=== PATIENT | female | born 1935 | race Caucasian/White ===

== ENCOUNTER → 2017-03-12 | Outpatient (CLI) | payer OTHER ==
[~2017-03-12] MED LIST: ASCA500 PO; CALCTAB13 PO; CLB200 PO; ENOX40IN SQ; FISHOIL PO; GLCSUNK; LATA0.009 OPB; LOSA1TAB PO; LRT5 PO; MAGNESIUM; METF1000 PO; MULT-506 PO; TYLER650 PO
== END | disposition home or self-care (01) ==
LOC: C.CPL 11:06
PROVIDERS: ATTEND Orthopaedic Surgery
DX: M25.512 Pain in left shoulder (principal)

== ENCOUNTER 2019-02-02 10:02 | Inpatient (IN) ==
[2019-02-02] MEDS ORDERED: SODIUM CHLORIDE 0.9% 1000ML 1,000 ML IV SCH ×2 (10:15→14:32)
--- NOTE | 2019-02-02 10:49 | XRay Report ---
XR chest 1V portable CLINICAL HISTORY: dizziness COMPARISON STUDY: Chest radiograph August 27, 2011. FINDINGS: Lung volumes are normal. Lungs are clear. There is no pneumothorax or pleural effusion. Car diac size is normal. Mediastinal contours are normal. There is no evidence for pulmonary edema. Sever al old left rib fractures are incidentally noted. IMPRESSION: No acute cardiopulmonary findings. Electronically signed by: Dominik Robin M.D. 02/02/2019 10:47 AM
[2019-02-02 10:51] LABS: Basophils # (auto) 0.03 K/uL (0-0.2); Basophils % (auto) 0.7 %; Eosinophils # (auto) 0.12 K/uL (0-0.5); Eosinophils % (auto) 2.9 %; Hematocrit (blood only) 40.2 % (37-47); Hemoglobin 13.5 g/dL (12.0-16.0); Immature Granulocytes # (auto) 0.01 K/uL (0.00-0.02); Immature Granulocytes % (auto) 0.2 %; Lymphocytes # (auto) 1.32 K/uL (1.2-3.4); Lymphocytes % (auto) 32.4 %; Mean Corpuscular Hgb Conc 33.6 g/dL (32-36); Mean Platelet Volume 10.9 fL (7.4-10.4); Monocytes # (auto) 0.41 K/uL (0.11-0.59); Monocytes % (auto) 10.1 %; Neutrophils # (auto) 2.18 K/uL (1.4-6.5); Neutrophils % (auto) 53.7 %; Platelet Count 224 K/uL (130-400); RDW Coefficient of Variation 13.3 % (11.5-14.5); RDW Standard Deviation 44.5 fL (36.4-46.3); Red Blood Count 4.37 M/uL (4.2-5.4); White Blood Count 4.07 K/uL (4.8-10.8)
[2019-02-02 11:13] LABS: Alanine Aminotransferase 18 U/L (12-78); Aspartate Aminotransferase 13 U/L (15-37); BUN Creatinine Ratio 19.6 (10-20); Blood Urea Nitrogen 20 mg/dl (7-18); Calcium 9.4 mg/dl (8.5-10.1); Carbon Dioxide 30 mmol/L (21-32); Chloride 106 mmol/L (98-107); Est GFR (African American) 61.2; Est GFR (Non-African American) 52.8; Glucose 142 mg/dl (70-99); Magnesium 2.1 mg/dl (1.8-2.4); Potassium 3.9 mmol/L (3.5-5.1); Sodium 141 mmol/L (136-145)
[2019-02-02 11:18] LABS: Albumin Globulin Ratio 1.1 (0.9-2); Alkaline Phosphatase 95 U/L (45-117); Bilirubin,Total 0.5 mg/dl (0.2-1); Globulin 3.7 gm/dl (2.5-4.0); Total Protein 7.7 gm/dl (6.4-8.2); Troponin I < 0.015 ng/ml (0-0.045)
--- NOTE | 2019-02-02 11:20 | CT Scan Report ---
CT OF THE HEAD WITHOUT CONTRAST CLINICAL HISTORY: Stroke evaluation COMPARISON STUDY: No previous studies for comparison. CT DOSE: 788.63 mGycm TECHNIQUE: Helical axial images of the head were obtained without IV contrast. Automated exposure con trol was utilized for the study. A dose lowering technique was utilized adhering to the principles o f ALARA. FINDINGS: No acute intracranial hemorrhage, midline shift or mass effect is present. Ventricular syst em is normal. The basilar cisterns are patent. There are no extra-axial collections. Note is made of a 1.4 cm hypodensity within the anterior right cerebellar hemisphere which may extend into the cerebe llar peduncle. A 5 mm hypodensity within the right thalamus is noted. 4 mm hypodensity within the lef t caudate head is noted. 9 mm subcortical right frontal lobe hypodensity is noted. There are no findi ngs to suggest acute dural sinus thrombosis or acute territorial infarct. White matter hypodensity pacheco ggests small vessel disease. No calvarial fracture is present. Visualized portions of the sinuses and mastoid air cells are clear. IMPRESSION: 1. No acute intracranial hemorrhage or mass effect. 2. 1.4 cm right cerebellar hypodensity. This represents an age indeterminate but likely subacute to c hronic infarct. A few additional age indeterminate lacunar infarcts, as described above. Electronically signed by: Dominik Robin M.D. 02/02/2019 11:18 AM
[2019-02-02 11:29] LABS: Partial Thromboplastin Ratio 0.9; Partial Thromboplastin Time 24.5 Seconds (21.0-31.0); Prothrombin Time 10.1 Seconds (9.0-12.0)
[2019-02-02 11:58] LABS: Appearance Urine Cloudy (Clear); Bacteria Urine Automated 4+ (Negative); Bilirubin Urine Negative (Negative); Blood Urine Negative (Negative); Color Urine Yellow; Epithelial Cell Urine Auto 0-5 /lpf (0-5); Glucose Urine UA Negative (Negative); Ketones Urine Negative (Negative); Leukocyte Esterase Urine 2+ (Negative); Nitrite Urine Positive (Negative); Protein Urine Negative (Negative); RBC Urine Automated 0-4 /hpf (0-4); Specific Gravity Urine 1.016 (1.000-1.030); Urobilinogen Urine Negative (Negative); WBC Urine Automated >30 /hpf (0-5)
[2019-02-02] MEDS ORDERED: ASPIRIN CHEW 324 MG PO STA (12:07)
[2019-02-02] MEDS ORDERED: ONDANSETRON INJ 2 MG/ML 2 ML VIAL IV STA (12:30)
[2019-02-02] MEDS ORDERED: HYDROmorphone INJ 0.5 MG/0.5 ML SYR IV PRN (12:30)
--- NOTE | 2019-02-02 13:18 | History & Physical Report ---
Date of Service February 02, 2019 Assessment & Plan (1) CVA (cerebral vascular accident): This is an 83 year old F who has a significant PMH of T2DM, HTN, HLD, CKD-3, Vit D deficiency, glaucoma who presents to [facility] ED due to diplopia, off balance, exp aphasia x 1-[address] scan of brain revealed 1.4 cm right cerebellar hypodensity, likely represents age-indeterminate vs subacute to chronic infarct. Additional age- indeterminate lacunar infarcts noted as well. CBC relatively unremarkable. CMP significant for elevated BUN 20, creatinine 1.00, glucose 142. Troponin and magnesium WNL. Urinalysis consistent with UTI, positive nitrites, leukocyte esterase, WBC, minimal epithelial cells and bacteria. In ED patient received 324 mg of aspirin. Hospital service has been called for admission given concern for subacute CVA. Admit to telemetry MRI Brain ordered CTA head/neck Echocardiogram Lipid panel, A1C in a.m. along with daily labs Pt currently on ASA, will add Plavix 75mg daily and high intensity statin IVF 80cc/hr x 1 L due to metformin use and CTA PT/OT/ST consulted (2) Diabetes: Last A1C 08/3018 6.9 Hold metformin Novolog per sliding scale (3) Hypertension: Continue losartan Mildly hypertensive in ED monitor (4) HLD (hyperlipidemia): Lipid panel 08/2018 total chol 229, LDL 158 Not on Statin therapy Fasting lipid panel in a.m. Initiate high intensity statin (5) CKD (chronic kidney disease) stage 3, GFR 30-59 ml/min: Baseline Cr 1.0 Monitor (6) Vitamin D deficiency, unspecified: Continue Vit D supplementation (7) Glaucoma: Continue eye gtts (8) DVT prophylaxis: Lovenox, SCD/TEDS Full Code Disposition: to be deteremined, case management, PT/OT/ST consulted Follow up: PCP Dr. Alarcon upon discharge Patient was seen and examined in collaboration with Dr. Lopez, please see addendum History of Present Illness Chief Complaint: diplopia, off balance, exp aphasia x 1-2 weeks. Primary Care Provider: Mainor Alarcon MD This is an 83 year old F who has a significant PMH of T2DM, HTN, HLD, CKD-3, Vit D deficiency, glaucoma who presents to [facility] ED due to diplopia, off balance, exp aphasia x 1-2 weeks. Patient expresses over the past 2 weeks she has noted intermittent diplopia bilaterally. "When ER doc was in here there was 2 of him, but not it is back to normal. Elicits she had eye exam 1 week ago without change. Also complains of otherwise being off balance and over the past 2 to 3 days has been having difficulty finding words. "I really have to think of what I am going to say." Further complains of difficulty with fine motor movements such as change in handwriting. Patient has suffered 2 falls in the past week. One last week appears to be mechanical when she was walking over some stones, fell and struck head. She did not lose consciousness. The second fall was approximately 2 days ago whenever she felt off balance and fell backwards into a wall, did not hit head. Denies having symptoms in past. Denies recent illness or history of CVA in the past. Feels overall bilateral lower extremities are weaker than usual but denies any significant weakness or paralysis, inability to speak, slurred speech, facial droop. She denies any fever, chills, sweats, diz ziness, lightheadedness, chest pain, palpitations, shortness of breath, nausea, vomiting diarrhea, dysuria, increase in urgency or frequency with urination, hematuria, melena. Last BM was yesterday. Appetite has otherwise been well. No known weight loss. Takes asa on daily basis for preventative measures. Has glaucoma and takes eye gtts for this. Allergies Allergy/AdvReac Type Severity Reaction Status Date / Time No Known Allergies Allergy Unverified 02/02/19 11:16 Home Medications Home Medications Medication Instructions Recorded Confirmed Type acetaminophen [Tylenol] 650 mg PO BID PRN 02/02/19 02/02/19 History aspirin [Aspirin Low Dose] 81 mg PO DAILY 02/02/19 02/02/19 History hnbqqgu-mpucpjoxljgcb-kiigwbmi 2 tab PO BID PRN 02/02/19 02/02/19 History [Excedrin Extra Strength] calcium carbonate-vitamin D3 1 tab PO BID 02/02/19 02/02/19 History [Calcium 500 + D] diphenhydramine-acetaminophen 0.5 tab PO HS 02/02/19 02/02/19 History [Tylenol PM Extra Strength] glucos sul 1VZv-bnw-iwsod-C-Mn 2 cap PO DAILY 02/02/19 02/02/19 History [Glucosamine Chondroitin] latanoprost 1 drp OPHTHALMIC (EYE) BID 02/02/19 02/02/19 History losartan 25 mg PO DAILY 02/02/19 02/02/19 History magnesium 250 mg PO DAILY 02/02/19 02/02/19 History metformin 500 mg PO BID 02/02/19 02/02/19 History kyajroju-jga-ipbb-FA-lutein 1 tab PO DAILY 02/02/19 02/02/19 History [Multivitamin Women 50 Plus] omega 6-udz-drz-fish oil [Fish Oil] 1 cap PO DAILY 02/02/19 02/02/19 History Past Med/Surg History Medical History HLD (hyperlipidemia) (Chronic) CKD (chronic kidney disease) stage 3, GFR 30-59 ml/min (Chronic) Vitamin D deficiency, unspecified (Chronic) Glaucoma (Chronic) Hypertension (Chronic) Diabetes (Chronic) Surgical History History of total hip arthroplasty (Chronic) History of tubal ligation (Chronic) History of colonoscopy (Chronic) Family History Father Myocardial infarction Mother of unknown cause Other Family history non-contributory Social History Preferred Language: Mauritanian Communication Ability: Effective Communication Ability Comment: double vision Rn Intake Required: No Beliefs That Will Affect Care: None marital status: Current Living Situation: Spouse current occupational status: retired 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 Feels Safe at Home: Yes Safety Concerns: Feels Safe At This Time Smoking Status: Former smoker packs per day: 1 ; Years Smoked: 5 ; Do You Dip or Chew Tobacco: No ; Smoking End Date: 1978 ; Second Hand Exposure: No ; Tobacco Cessation Education Requested by Patient: No Hx Alcohol Use: Yes Alcohol type: wine and hard liquor Alcohol Intake Freque ncy: Rarely Hx Substance Use: No Review of Systems Review of Systems: All systems reviewed & are unremarkable except as noted in HPI & below Physical Exam Physical Exam: Constitutional: WD/WN, F, vitals as above, NAD, sitting up in bed, pleasant, conversing easily Head: Normocephalic, Atraumatic Eyes: PERRL, conjunctivae normal, anicteric sclerae ENMT: external ear and nose normal, oropharynx normal Neck: trachea midline, no thyromegaly normal visual inspection Respiratory: normal respiratory effort, lungs clear to auscultation, no wheeze, rales, rhonchi. Normal insp/exp effort, no accessory muscle use Cardiovascular: RRR, no murmur, no edema Vessels: no JVD or carotid bruit Chest: normal inspection of chest Abdomen: normal bowel sounds, soft, nontender, no hepatosplenomegaly Musculoskeletal: no cyanosis or clubbing, extremities motor strength 5/5 Skin: no rashes, warm and dry normal turgor Neurologic: PERRL, EOMI, accommodation nl, no face palsy, no dysarthria, very minimal word finding difficulty. CN's II-XI intact bilaterally and moves all extremities Psychiatric: A+Ox3, euthymic affect Lymphatic: no cervical or axillary lymphadenopathy : deferred Results & Data Vital Signs (Past 12 Hours) Vital Signs Temp Pulse Pulse Resp BP BP Pulse Ox 02/02/19 12:34 57 L 16 153/79 H 97 02/02/19 11:17 62 16 149/76 H 97 02/02/19 10:03 36.8 C 65 20 162/82 H 97 Laboratory Results Short CBC 02/02/19 Range/Units 10:37 WBC 4.07 L (4.8-10.8) K/uL Hgb 13.5 (12.0-16.0) g/dL Hct 40.2 (37-47) % Plt Count 224 (130-400) K/uL BMP 02/02/19 10:37 Sodium 141 Potassium 3.9 Chloride 106 Carbon Dioxide 30 BUN 20 H Creatinine 1.00 Glucose 142 H Calcium 9.4 Cardiac Enzymes 02/02/19 Range/Units 10:37 Troponin I < 0.015 (0-0.045) ng/ml Liver Function 02/02/19 Range/Units 10:37 Total Bilirubin 0.5 (0.2-1) mg/dl AST 13 L (15-37) U/L ALT 18 (12-78) U/L Alkaline Phosphatase 95 (45-117) U/L Albumin 4.0 (3.4-5.0) gm/dl Urine 02/02/19 Range/Units 11:46 Urine Color Yellow Urine Appearance Cloudy A (Clear) Urine pH 7.0 (4.5-7.5) Ur Specific Revere 1.016 (1.000-1.030) Urine Protein Negative (Negative) Urine Glucose (UA) Negative (Negative) Diagnostic Findings CXR: IMPRESSION: No acute cardiopulmonary findings. Head CT: IMPRESSION: 1. No acute intracranial hemorrhage or mass effect. 2. 1.4 cm right cerebellar hypodensity. This represents an age indeterminate but likely subacute to chronic infarct. A few additional age indeterminate lacunar infarcts, as described above. Medications Administered Sodium Chloride (Nss 1000ml) 1,000 mls @ 50 mls/hr IV .Q20H SIMONA Stop: 03/04/19 10:14 Last Admin: 02/02/19 12:34 Dose: 50 mls/hr Documented by: [id number] Discontinued Medications Aspirin (Aspirin) 324 mg PO NOW STA Stop: 02/02/19 12:08 Last Admin: 02/02/19 12:33 Dose: 324 mg Documented by: [id number] ECG Rate (beats per minute): 61 Rhythm: normal sinus Code Status & VTE Plan Code Status full code VTE Prophylaxis Plan VTE Prophylaxis will be ordered: Yes Supervising Physician Co-Signing Physician Notes Patient is an 83-year-old female with history of diabetes, hypertension, CKD and other medical problems presents with diplopia, balance issues with ambulation, expressive aphasia and recurrent falls. She noticed having double vision which is intermittent since 2 weeks duration. She was evaluated by her ophthalm ologist recently as per patient. Currently denies any blurry vision, double vision while in ED. She admits to have fell 2 times in the past week. Denies any loss of consciousness, head trauma. Also admits to have noticed a change in her handwriting recently. States having bilateral lower extremity weakness. Denies any facial deformity, bowel/bladder incontinence. Please review HPI for complete details of presentation. CT head showed 1.4 cm right cerebellar hypodensity likely suggestive of subacute to chronic infarct. UA suggestive of possible UTI. Patient denies any dysuria, increased urinary frequency, hematuria. On exam as patient is moderately built and nourished, no apparent distress, normocephalic atraumatic, lungs are clear to auscultation, S1-S2, no murmur, abdomen soft nontender, grossly no focal neurological deficits, no pedal edema. Noted healing scabbed wound on left lower extremity. Patient is admitted for management of subacute CVA, possible UTI. Will obtain MRI brain, CTA head and neck, echo as recommended by neurology. Patient is on aspirin 81 mg daily at home. Will add Plavix, Lipitor. Consulted neurology for input. Will get neuro checks, PT/OT evaluation. Will empirically start on Rocephin for possible UTI. Urine cultures obtained. I personally reviewed the record. Patient is interviewed and examined at bedside. Patient's care is coordinated with Etelvina Zimmerman PA-C. Please refer to the documentation above for details of patient's presentation and for discussion of other issues. (1) CVA (cerebral vascular accident) CVA mechanism: unspecified Qualified Code(s): I63.9 - Cerebral infarction, unspecified
[2019-02-02] MEDS ORDERED: cefTRIAXone SODIUM 1,000 MG/50 ML BAG IV STA (13:35)
[2019-02-02] MEDS ORDERED: OPTIRAY 320 125ml IV PRN (14:09)
--- NOTE | 2019-02-02 14:30 | CT Scan Report ---
CT angio head w con CLINICAL HISTORY: Acute stroke TECHNIQUE: CT angiography of the head was performed in a dynamic helical fashion during intravenous a dministration of 120 cc of Optiray 320. MIP imaging was performed. A dose lowering technique was util ized adhering to the principles of ALARA. CT DOSE: 668.23 mGy.cm COMPARISON STUDY: Noncontrast head CT performed 02/02/2019 FINDINGS: There are no lesion suspicious for aneurysm. There is a severe greater than 90% basilar art blossom stenosis. There is a left posterior cerebral artery origin stenosis. There are areas of mild nonh emodynamically significant atherosclerotic narrowing involving the middle cerebral arteries. The dural venous sinuses appear patent. IMPRESSION: 1. 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 Moderate stenosis of the left posterior cerebral artery origin 3. No evidence of aneurysm. Electronically signed by: Gilson Freedman M.D. 02/02/2019 2:29 PM
--- NOTE | 2019-02-02 14:31 | CT Scan Report ---
CT angio neck with con HISTORY: Mental status change. cva TECHNIQUE: Multiaxial CT angiography of the neck was performed IV contrast: 1 cc All measurements we re calculated based on NASCET criteria. Maximum intensity projection images were also obtained. A d ose lowering technique was utilized adhering to the principles of ALARA. COMPARISON STUDY: None. FINDINGS: The aortic arch and proximal great vessels are widely patent. There is no significant sten otic process of the common internal or external carotid arteries. Mild plaque remission is noted at t he bifurcations. No significant stenosis is appreciated. The left vertebral artery is dominant. The right vertebral artery is smaller on a congenital basis wi th moderate superimposed multifocal areas of moderate narrowing. There is no evidence for occlusion. IMPRESSION: 1. No significant stenotic process within the carotid systems. 2. 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 The above report was generated using voice recognition software. It may contain grammatical, syntax or spelling errors. Electronically signed by: Mainor Mae M.D. 02/02/2019 2:30 PM
[2019-02-02] MEDS ORDERED: ALUMINUM/MAGNESIUM SUSP 30 ML UDC PO PRN (14:32)
[2019-02-02] MEDS ORDERED: POLYETHYLENE (MIRALAX) 17 GM PACK PO PRN (14:32)
[2019-02-02] MEDS ORDERED: GLUCAGON FOR INJ 1 MG VIAL SQ PRN (14:32)
[2019-02-02] MEDS ORDERED: GLUCOSE 40% GEL 15 GM TUBE PO PRN (14:32)
[2019-02-02] MEDS ORDERED: MAGNESIUM HYDROXIDE SUSP 30 ML UDC PO PRN (14:32)
[2019-02-02] MEDS ORDERED: DEXTROSE 50% 50 ML SYRINGE IV PRN (14:32)
[2019-02-02] MEDS ORDERED: PHARMACIST DISCHARGE MED REC CONSULT PRN (14:32)
[2019-02-02] MEDS ORDERED: ACETAMINOPHEN 325 MG TAB PO PRN (14:32)
[2019-02-02] MEDS ORDERED: GLUCOSE 10 TABS/TUBE PO PRN (14:32)
[2019-02-02] MEDS ORDERED: CARBOHYDRATES FOR HYPOGLYCEMIA PO PRN (14:32)
[2019-02-02] MEDS ORDERED: ONDANSETRON INJ 2 MG/ML 2 ML VIAL IV PRN (14:32)
--- NOTE | 2019-02-02 14:41 | Neurology Consultation ---
Date of Consultation February 02, 2019 Assessment & Plan (1) CVA (cerebral vascular accident): 1. CT head- 1.4 cm R cerebellar hypodensity, 9 mm subcortical R frontal hypodensity 2. CTA head- 90% stenosis basilar artery 3. MRI brain pending 4. TTE- pending 5. continue aspirin 81 mg plavix 75 mg defer to heparin gtt for transfer 6. PT/OT speech for discharge needs 7. optimize HTN, HLD, DM LDL <90 avoid hypotension 8. [place] contacted for advise for intervention Ian Bernsteinjesus manuel [facility] neurosurgery recommended Griessenauer or [facility] neurovascular and transfer to [place] on CCM or neurology service through transfer center 9. started heparin gtt for transfer Supervising Physician Co-Signing Physician Notes I have seen and discussed above patient with Dr Lindsey Lebron, neurologyPatient not currently at bedside history reviewed. She has had fluctuating posterior circulation symptoms over several days which have included double vision and instability. While here in the emergency room she had recurrent dysarthria and diplopia. MRI of the brain shows an acute infarction in the right cerebellum right thalamus and right occipital lobe. These do not appear to be hemorrhagic and are relatively small both on CT and MRI. Her CTA shows a greater than 90% stenosis of the basilar artery. Given her fluctuation I would recommend transfer to [facility]. I would recommend heparin therapy. Avoidance of hypotension. The reason for trach transfer is active fluctuation of posterior circulation symptoms. I believe a tertiary care center is appropriate in case she needs any posterior circulation intervention. Ongoing therapy for stroke reduction may include Coumadin but could also include aspirin and Plavix. I have discussed the patient's care with Dr. Paris Lebron MD History of Present Illness Reason for Consultation: CVA Requesting Physician: Rj Toledo MD Attending Physician: Rj Toledo MD History of Present Illness Apurva is a 83 year old female PMH- DM2, HTN, HLD, CKD-3, Vit D deficiency, glaucoma who presents to [facility] ED due to diplopia, off balance, exp aphasia x 1-2 weeks. She has noted intermittent diplopia bilaterally. "When ER doc was in he re there were 2 side by side but sometimes up and down. she has an eye exam that she states was normal. She has been off balance and over the past 2 to 3 days has been having difficulty finding words. "I really have to think of what I am going to say." She was also having difficulty with hand writing and fell 2 x in the past week without LOC but did hit her head the first time. The second fall she felt off balance and fell backwards into a wall but didn't hit her head. She was on aspirin on daily basis for preventative measures. Has glaucoma and takes eye gtts for this. She states she has never had symptoms like this in the past. Her is in the room and he states her speech is back to baseline but this am it was not. He states she had slurred speech in the ED and horizontal diplopia. denies CP, SOB, abdominal pain, one sided weakness, numbness tingling, N, V, current vision changes, new bowel or bladder issues, swallowing issues. Allergies Allergy/AdvReac Type Severity Reaction Status Date / Time No Known Allergies Allergy Unverified 02/02/19 11:16 Home Medications Home Medications Medication Instructions Recorded Confirmed Type acetaminophen [Tylenol] 650 mg PO BID PRN 02/02/19 02/02/19 History aspirin [Aspirin Low Dose] 81 mg PO DAILY 02/02/19 02/02/19 History ywxbrai-tdmjkjhhxvbbx-ktbspimb 2 tab PO BID PRN 02/02/19 02/02/19 History [Excedrin Extra Strength] calcium carbonate-vitamin D3 1 tab PO BID 02/02/19 02/02/19 History [Calcium 500 + D] diphenhydramine-acetaminophen 0.5 tab PO HS 02/02/19 02/02/19 History [Tylenol PM Extra Strength] glucos sul 7TJc-bsg-wybhx-C-Mn 2 cap PO DAILY 02/02/19 02/02/19 History [Glucosamine Chondroitin] latanoprost 1 drp OPHTHALMIC (EYE) 02/02/19 02/02/19 History losartan 25 mg PO DAILY 02/02/19 02/02/19 History magnesium 250 mg PO DAILY 02/02/19 02/02/19 History metformin 500 mg PO BID 02/02/19 02/02/19 History pszridcd-apg-wlhw-FA-lutein 1 tab PO DAILY 02/02/19 02/02/19 History [Multivitamin Women 50 Plus] omega 5-yjd-xtk-fish oil [Fish Oil] 1 cap PO DAILY 02/02/19 02/02/19 History Patient History Medical History HLD (hyperlipidemia) (Chronic) CKD (chronic kidney disease) stage 3, GFR 30-59 ml/min (Chronic) Vitamin D deficiency, unspecified (Chronic) Glaucoma (Chronic) Hypertension (Chronic) Diabetes (Chronic) Surgical History History of total hip arthroplasty (Chronic) History of tubal ligation (Chronic) History of colonoscopy (Chronic) Family History Father Myocardial infarction Mother of unknown cause Other Family history non-contributory Social History Preferred Language: Lithuanian Communication Ability: Effective Communication Ability Comment: double vision [employer] Required: No Beliefs That Will Affect Care: None marital status: Current Living Situation: Spouse current occupational status: retired 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 Feels Safe at Home: Yes Safety Concerns: Feels Safe At This Time Smoking Status: Former smoker packs per day: 1 ; Years Smoked: 5 ; Do You Dip or Chew Tobacco: No ; Smoking End Date: 1978 ; Second Hand Exposure: No ; Tobacco Cessation Education Requested by Patient: No Hx Alcohol Use: Yes Alcohol type: wine and hard liquor Alcohol Intake Frequency: Rarely Hx Substance Use: No Physical Exam Physical Exam: Physical Exam: Constitutional: appearance over nourished, healthy Ears, Nose, Mouth and Throat: mucous membranes moist, no injection and skin normal, eyes normal Cardiovascular: normal S-1 and S-2 and regular rate and rhythm Respiratory: clear to auscultation (CTA) and no rales, rhonchi or wheeze Musculoskeletal: no peripheral edema and good distal pulses Skin: larger scabbed area on left rivera no drainage. Eyes: extraocular muscles intact (EOMI) and pupils equal, round and reactive to light (PERRL), gross visual pack intact NEUROLOGIC EXAMINATION: Mental status: Alert and interactive Oriented to january,, date of Oriented to person Speech fluent slowed speech, no dysphasia Cranial Nerves smile eye brow raise symmetric, tongue midline Reflexes: Deep tendon reflexes were symmetrical and graded 2/5 Sensory: light or cool touch Coordination: finger to nose with no bi pass Gait/Stance: Posture normal. Gait normal: with steady with steps, base, tandem gait. Motor: left sided drift (states weak from shoulder surgery Strength: hand video poker floorman biceps triceps 5/5 bilaterally , hip flex plantar flex ext 5/5 Results & Data Vital Signs (Past 12 Hours) Vital Signs Temp Pulse Pulse Resp BP BP Pulse Ox 02/02/19 13:59 54 L 16 163/84 H 96 02/02/19 12:34 57 L 16 153/79 H 97 02/02/19 11:17 62 16 149/76 H 97 02/02/19 10:03 36.8 C 65 20 162/82 H 97 Laboratory Results Abnormal lab results 02/02/19 02/02/19 02/02/19 Range/Units 10:37 10:37 11:46 WBC 4.07 L (4.8-10.8) K/uL MPV 10.9 H (7.4-10.4) fL BUN 20 H (7-18) mg/dl Glucose 142 H (70-99) mg/dl AST 13 L (15-37) U/L Urine Appearance Cloudy A (Clear) Urine Nitrite Positive A (Negative) Ur Leukocyte Esterase 2+ H (Negative) Urine WBC (Auto) >30 H (0-5) /hpf Urine Bacteria (Auto) 4+ H (Negative) Diagnostic Findings CT head-. No acute intracranial hemorrhage or mass effect. 1.4 cm right cerebellar hypodensity. This represents an age indeterminate but likely subacute to chronic infarct. A few additional age indeterminate lacunar infarcts, as described above. CXR- No acute cardiopulmonary findings. 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 CTA neck-1. No significant stenotic process within the carotid systems. 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 TTE- not resulted MRI brain pending (1) CVA (cerebral vascular accident) CVA mechanism: unspecified Qualified Code(s): I63.9 - Cerebral infarction, unspecified
--- NOTE | 2019-02-02 15:11 | Emergency Department Note ---
Entered by Page Hanson acting as a scribe for ED Provider Note CHIEF COMPLAINT: Stroke symptoms HISTORY OF PRESENT ILLNESS: The patient is a 83 year old female who presents to the Emergency Room with complaints of persistent stroke-like symptoms that started following an episode of a fall that occurred sometime last week. The patient is a poor historian and is unable to state the exact date of the fall. She states that she was feeling dizzy prior to the fall and notes that she continues to feel dizzy on exam. She reports some intermittent vertical double vision. The patient notes that she went to lunch with her friends following the fall and states that they noticed that she was not her usual self. The patients reports that the patient is exhibiting some expressive aphasia and balance difficulties. The patient s sandoval that her symptoms continued through the weekend and are present on exam today. She notes that she has a history of diabetes and hypertension. Pt denies LOC, headache, fevers, chills, diaphoresis, neck pain, chest pain, breathing difficulties, nausea, vomiting, abdominal pain, back pain, melena, hematochezia, urinary symptoms, numbness, weakness, lymphadenopathy, rash, or other complaints. REVIEW OF SYSTEMS: See HPI for pertinent positives and negatives. A total of ten systems were reviewed and were otherwise negative. PMHx/PSHx: Diabetes, Hypertension SOCIAL HISTORY: Patient lives at home. She is and retired. PHYSICAL EXAM: GENERAL: Awake, alert, tired-appearing, in no distress HENT: Normocephalic, atraumatic. Oropharynx unremarkable. EYES: PERRL. Normal conjunctiva. Sclera non-icteric. NECK: Inspection normal. Non-tender. Supple. No nuchal rigidity. FROM. No masses. RESPIRATORY: Clear to auscultation. No wheezes. No rales. Normal respiratory effort. CARDIAC: Normal rate. Normal rhythm. No murmurs. No rubs. Extremities warm and well perfused. Pulses equal. No JVD. GI: Soft, non-distended. No tenderness to palpation. No rebound or guarding. No masses. RECTAL: Deferred. MUSCULOSKELETAL: Atraumatic. Chest examination reveals no tenderness. The back is symmetrical on inspection without obvious abnormality. There is no CVA tenderness to palpation. No joint edema. LOWER EXTREMITIES: Calves are equal size bilaterally and non-tender. No edema. No discoloration. NEURO: Normal sensorium. No sensory or motor deficits noted. Normal BENIGNO. Normal heel to rivera. No pathologic nystagmus. Cranial nerves intact. SKIN: No rash or jaundice noted. EMERGENCY DEPARTMENT COURSE: 1020: The patient was seen and evaluated by the Resident Physician at this time. History and physical were discussed with me. 1057: Past medical records reviewed. The patient was evaluated in room B04B, and a complete history and physical examination were performed. 1205: I updated the patient on her current lab and imaging results. She is amenable to the treatment plan. 1212: I discussed the patient's case with JOSEPH Vale, who will evaluate the patient for further management and care with Dr. Lopez as the attending physician. 1220: Upon reevaluation, the patient is resting comfortably. I discussed laboratory and radiographic results with the patient. She verbalized agreement of the treatment plan. The patient will be evaluated for further management and care. MEDICAL DECISION MAKING: B4 Prior records/ancillary studies reviewed. Nursing notes reviewed and agree them. Additional history obtained from patient significant other. The patient's history was concerning for weakness, double vision, and expressive aphasia. Differential diagnosis: Etiologies such as CVA, TIA, VBI, metabolic, infection, hypo/hyperglycemia, electrolyte abnormalities, cardiac sources, intracerebral event, toxicologic, neurologic, as well as others were entertained. Physical examination: As above. Currently nonfocal. ER treatment provided: IV [place] hydration Oral aspirin IV Rocephin The patient is out of the window for consideration for thrombolytic therapy. On reassessment the patient felt better. Diagnostics interpretation by me: ECG: No dysrhythmia. The labs revealed an unremarkable CBC and chemistry panel. Urinalysis concerning for infection. Imaging studies: CAT scan was concerning for possible subacute infarct. Consultation: A consultation was placed with the hospitalist. The case was discussed and diagnostics were reviewed. The patient was evaluated in the ER for further treatment. I gave my usual and customary discussion regarding this issue. The patient was seen and examined with Dr. Vernon Myers, resident physician. We discussed the case and treatments ordered, reviewed the results, and determine the disposition. I have been directly involved with the management and disposition as well as independently evaluated the patient as documented in this note. IMPRESSION: CVA (subacute) PLAN: Being evaluated by a hospitalist The scribe's documentation has been prepared under my direction and personally reviewed by me in its entirety. I confirm that the note above accurately reflects all work, treatment, procedures, and medical decision making performed by me. Impression & Plan CVA (cerebral vascular accident) Past Med/Surg History Medical History HLD (hyperlipidemia) (Chronic) CKD (chronic kidney disease) stage 3, GFR 30-59 ml/min (Chronic) Vitamin D deficiency, unspecified (Chronic) Glaucoma (Chronic) Hypertension (Chronic) Diabetes (Chronic) Surgical History History of total hip arthroplasty (Chronic) History of tubal ligation (Chronic) History of colonoscopy (Chronic) Family History Father Myocardial infarction Mother of unknown cause Other Family history non-contributory Social History Preferred Language: Spanish Communication Ability: Effective Communication Ability Comment: double vision Instrument Room Technician Required: No Beliefs That Will Affect Care: None marital status: Current Living Situation: Spouse current occupational status: retired 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 Feels Safe at Home: Yes Safety Concerns: Feels Safe At This Time Smoking Status: Former smoker packs per day: 1 ; Years Smoked: 5 ; Do You Dip or Chew Tobacco: No ; Smoking End Date: 1978 ; Second Hand Exposure: No ; Tobacco Cessation Education Requested by Patient: No Hx Alcohol Use: Yes Alcohol type: wine and hard liquor Alcohol Intake Frequency: Rarely Hx Substance Use: No Results & Data Vital Signs Vital Signs - 24 hr 02/02/19 10:03 02/02/19 11:17 Temperature 36.8 C Temperature Source Oral Sepsis Recent Fever Within 48 Hours No Sepsis New/Unexplained Change in Mental Status No Sepsis Action Taken by Nursing No Action Required Pulse Rate 65 Pulse Rate [Apical] 62 Pulse Rhythm [Apical] Regular Pulse Strength [Apical] Normal Respiratory Rate 20 16 Respiratory Effort / Characteristics Non-Labored Spontaneous Respiratory Depth Normal Respiratory Pattern Regular Blood Pressure 162/82 H Blood Pressure [Right Arm] 149/76 H Blood Pressure Mean 108 Blood Pressure Mean [Right Arm] 100 Blood Pressure Position [Right Arm] Sitting Pulse Oximetry 97 97 Oxygen Delivery Method Room Air Room Air Home Medications Current Medication List: was personally reviewed by me Laboratory Data Attestation: I reviewed the patient's lab results. Result diagrams: 02/02/19 10:37 02/02/19 10:37 Lab Results 02/02/19 02/02/19 02/02/19 Range/Units 10:26 10:37 10:37 WBC 4.07 L (4.8-10.8) K/uL RBC 4.37 (4.2-5.4) M/uL Hgb 13.5 (12.0-16.0) g/dL Hct 40.2 (37-47) % MCV 92.0 (80-100) fL MCH 30.9 (25-34) pg MCHC 33.6 (32-36) g/dL RDW Std Deviation 44.5 (36.4-46.3) fL RDW Coeff of Sandra 13.3 (11.5-14.5) % Plt Count 224 (130-400) K/uL MPV 10.9 H (7.4-10.4) fL Immature Gran % (Auto) 0.2 % Neut % (Auto) 53.7 % Lymph % (Auto) 32.4 % [place] % (Auto) 10.1 % Eos % (Auto) 2.9 % Baso % (Auto) 0.7 % Immature Gran # (Auto) 0.01 (0.00-0.02) K/uL Neut # (Auto) 2.18 (1.4-6.5) K/uL Lymph # (Auto) 1.32 (1.2-3.4) K/uL [place] # (Auto) 0.41 (0.11-0.59) K/uL Eos # (Auto) 0.12 (0-0.5) K/uL Baso # (Auto) 0.03 (0-0.2) K/uL PT 10.1 (9.0-12.0) Seconds INR 1.0 (0.9-1.1) APTT 24.5 (21.0-31.0) Seconds PTT Ratio 0.9 Sodium (136-145) mmol/L Potassium (3.5-5.1) mmol/L Chloride (98-107) mmol/L Carbon Dioxide (21-32) mmol/L Anion Gap (3-11) BUN (7-18) mg/dl Creatinine (0.6-1.2) mg/dl Est Cr Clr Drug Dosing Est GFR ( Amer) Est GFR (Non-Af Amer) BUN/Creatinine Ratio (10-20) Glucose (70-99) mg/dl Calcium (8.5-10.1) mg/dl Magnesium (1.8-2.4) mg/dl Total Bilirubin (0.2-1) mg/dl AST (15-37) U/L ALT (12-78) U/L Alkaline Phosphatase (45-117) U/L Troponin I (0-0.045) ng/ml Total Protein (6.4-8.2) gm/dl Albumin (3.4-5.0) gm/dl Globulin (2.5-4.0) gm/dl Albumin/Globulin Ratio (0.9-2) Urine Color Urine Appearance (Clear) Urine pH (4.5-7.5) Ur Specific [place] (1.000-1.030) Urine Protein (Negative) Urine Glucose (UA) (Negative) Urine Ketones (Negative) Urine Blood (Negative) Urine Nitrite (Negative) Urine Bilirubin (Negative) Urine Urobilinogen (Negative) Ur Leukocyte Esterase (Negative) Urine WBC (Auto) (0-5) /hpf Urine RBC (Auto) (0-4) /hpf U Hyaline Cast (Auto) (0-5) /lpf U Epithel Cells (Auto) (0-5) /lpf Urine Bacteria (Auto) (Negative) Blood Type O Positive Antibody Screen NEGATIVE Antibody Identification Cancelled 02/02/19 02/02/19 Range/Units 10:37 11:46 WBC (4.8-10.8) K/uL RBC (4.2-5.4) M/uL Hgb (12.0-16.0) g/dL Hct (37-47) % MCV (80-100) fL MCH (25-34) pg MCHC (32-36) g/dL RDW Std Deviation (36.4-46.3) fL RDW Coeff of Sandra (11.5-14.5) % Plt Count (130-400) K/uL MPV (7.4-10.4) fL Immature Gran % (Auto) % Neut % (Auto) % Lymph % (Auto) % [place] % (Auto) % Eos % (Auto) % Baso % (Auto) % Immature Gran # (Auto) (0.00-0.02) K/uL Neut # (Auto) (1.4-6.5) K/uL Lymph # (Auto) (1.2-3.4) K/uL [place] # (Auto) (0.11-0.59) K/uL Eos # (Auto) (0-0.5) K/uL Baso # (Auto) (0-0.2) K/uL PT (9.0-12.0) Seconds INR (0.9-1.1) APTT (21.0-31.0) Seconds PTT Ratio Sodium 141 (136-145) mmol/L Potassium 3.9 (3.5-5.1) mmol/L Chloride 106 (98-107) mmol/L Carbon Dioxide 30 (21-32) mmol/L Anion Gap 5.0 (3-11) BUN 20 H (7-18) mg/dl Creatinine 1.00 (0.6-1.2) mg/dl Est Cr Clr Drug Dosing Not Reportable Est GFR ( Amer) 61.2 Est GFR (Non-Af Amer) 52.8 BUN/Creatinine Ratio 19.6 (10-20) Glucose 142 H (70-99) mg/dl Calcium 9.4 (8.5-10.1) mg/dl Magnesium 2.1 (1.8-2.4) mg/dl Total Bilirubin 0.5 (0.2-1) mg/dl AST 13 L (15-37) U/L ALT 18 (12-78) U/L Alkaline Phosphatase 95 (45-117) U/L Troponin I < 0.015 (0-0.045) ng/ml Total Protein 7.7 (6.4-8.2) gm/dl Albumin 4.0 (3.4-5.0) gm/dl Globulin 3.7 (2.5-4.0) gm/dl Albumin/Globulin Ratio 1.1 (0.9-2) Urine Color Yellow Urine Appearance Cloudy A (Clear) Urine pH 7.0 (4.5-7.5) Ur Specific [place] 1.016 (1.000-1.030) Urine Protein Negative (Negative) Urine Glucose (UA) Negative (Negative) Urine Ketones Negative (Negative) Urine Blood Negative (Negative) Urine Nitrite Positive A (Negative) Urine Bilirubin Negative (Negative) Urine Urobilinogen Negative (Negative) Ur Leukocyte Esterase 2+ H (Negative) Urine WBC (Auto) >30 H (0-5) /hpf Urine RBC (Auto) 0-4 (0-4) /hpf U Hyaline Cast (Auto) 1-5 (0-5) /lpf U Epithel Cells (Auto) 0-5 (0-5) /lpf Urine Bacteria (Auto) 4+ H (Negative) Blood Type Antibody Screen Antibody Identification Administered Medications Ioversol (Optiray 320 125ml) 120 ml IV ONCE PRN PRN Reason: Interaction Checking Stop: 02/06/19 14:08 Last Admin: 02/02/19 14:10 Dose: 120 ml Documented by: [id number] Discontinued Medications Aspirin (Aspirin) 324 mg PO NOW STA Stop: 02/02/19 12:08 Last Admin: 02/02/19 12:33 Dose: 324 mg Documented by: [id number] Sodium Chloride (Nss 1000ml) 1,000 mls @ 50 mls/hr IV .Q20H SIMONA Stop: 03/04/19 10:14 Last Admin: 02/02/19 12:34 Dose: 50 mls/hr Documented by: [id number] Ceftriaxone Sodium (Rocephin) 1,000 mg in 50 mls @ 100 mls/hr IV NOW STA Stop: 02/02/19 14:04 Last Infusion: 02/02/19 14:53 Dose: 0 mls/hr Documented by: [id number] Admin: 02/02/19 13:59 Dose: 100 mls/hr Documented by: [id number] Ondansetron HCl (Zofran) 4 mg IV NOW STA Stop: 02/02/19 12:31 Last Admin: 02/02/19 13:29 Dose: Not Given Documented by: [id number] Imaging Data Radiologist's Impression: Radiology results as stated below per my review and the radiologist's interpretation: XR chest 1V portable CLINICAL HISTORY: dizziness COMPARISON STUDY: Chest radiograph August 27, 2011. FINDINGS: Lung volumes are normal. Lungs are clear. There is no pneumothorax or pleural effusion. Cardiac size is normal. Mediastinal contours are normal. There is no evidence for pulmonary edema. Several old left rib fractures are incidentally noted. IMPRESSION: No acute cardiopulmonary findings. Electronically signed by: Dominik Robin M.D. 02/02/2019 10:[address] OF THE HEAD WITHOUT CONTRAST CLINICAL HISTORY: Stroke evaluation COMPARISON STUDY: No previous studies for comparison. CT DOSE: 788.63 mGycm TECHNIQUE: Helical axial images of the head were obtained without IV contrast. Automated exposure control was utilized for the study. A dose lowering techniqu e was utilized adhering to the principles of ALARA. FINDINGS: No acute intracranial hemorrhage, midline shift or mass effect is present. Ventricular system is normal. The basilar cisterns are patent. There are no extra-axial collections. Note is made of a 1.4 cm hypodensity within the anterior right cerebellar hemisphere which may extend into the cerebellar peduncle. A 5 mm hypodensity within the right thalamus is noted. 4 mm hypodensity within the left caudate head is noted. 9 mm subcortical right frontal lobe hypodensity is noted. There are no findings to suggest acute dural sinus thrombosis or acute territorial infarct. White matter hypodensity suggests small vessel disease. No calvarial fracture is present. Visualized portions of the sinuses and mastoid air cells are clear. IMPRESSION: 1. No acute intracranial hemorrhage or mass effect. 2. 1.4 cm right cerebellar hypodensity. This represents an age indeterminate but likely subacute to chronic infarct. A few additional age indeterminate lacunar infarcts, as described above. Electronically signed by: Dominik Robin M.D. 02/02/2019 11:18 AM ECG Data Attestation: I personally reviewed and interpreted this ECG as follows: Indication: weakness Rate (beats per minute): 61 Rhythm: normal sinus Findings: no PAC, no PVC, no ST depression, no ST elevation, no acute ischemic change and no ectopy Blood Pressure Blood Pressure Findings: Elevated blood pressure Blood Pressure Disposition: Referred to patients primary care provider Discharge Plan Visit Data *Final* Discharge Date/Time: 02/02/19 13:37 Chief Complaint: Stroke/CVA Symptoms Stated Complaint: DIZZY ED Provider: Rj Small Discharge Problem: CVA (cerebral vascular accident) Patient Disposition: Admitted As Inpatient Discharge Instructions Interventions: ED Discharge Assessment Last Done: 02/02/19 13:37 Discharge Problem: CVA (cerebral vascular accident) Qualifiers: CVA mechanism: unspecified Qualified Code(s): I63.9 - Cerebral infarction, unspecified The scribe's documentation has been prepared under my direction and personally reviewed by me in its entirety. I confirm that the note above accurately reflects all work, treatment, procedures, and medical decision making performed by me.
[2019-02-02] MEDS ORDERED: Heparin IV Low Dose *NO* Bolus IV SCH (16:32)
--- NOTE | 2019-02-02 16:33 | Magnetic Resonance Report ---
MR brain wo con HISTORY: 83 years-old Female cva acute strokelike symptoms COMPARISON: CT head and CTA head neck of same day TECHNIQUE: Multiplanar multisequence MRI of the brain was obtained without the use of IV contrast. FINDINGS: Slitter And Rewinder localizer images demonstrate no gross extracranial abnormality. Midline structures including th e corpus callosum, brainstem, optic chiasm, pituitary and pineal glands appear unremarkable on the sa gittal T1 series. No cerebellar tonsillar herniation. Degenerative changes noted about the imaged cer vical spine. There are 2 subcentimeter foci of slightly increased diffusion-weighted signal measuring up to 6 mm about the right salivary is on image 15 series 4 which demonstrate intermediate signal on ADC map. There are a few punctate foci of restricted diffusion within the right occipital lobe demon strating decreased signal on the ADC map. There is a 1.2 x 1.8 cm focus of restricted diffusion of th e right brachium pontis extending into the inferior right cerebellar hemisphere which demonstrates de creased signal on ADC map and increased T2/FLAIR signal. No acute intracranial hemorrhage, midline sh ift, abnormal extra-axial collection, hydrocephalus or intracranial mass identified. Mild age-related involutional changes. Moderate/flair hyperintensities about the white matter suggest chronic microva scular ischemic disease. Minimal senescent calcifications of the lentiform nuclei. Major flow voids a ppear patent. Mastoid air cells are clear. Mild mucosal thickening of the ethmoid air cells. Prior bi lateral cataract repair. Skull and soft tissues are within normal limits. IMPRESSION: 1. Acute appearing infarct of the right brachium pontis with extension into the inferior right cerebe llar hemisphere measures up to 1.8 cm. Additionally, there are a few scattered punctate acute to suba cute appearing infarcts about the right occipital lobe with two subcentimeter subacute appearing infa rction of the right thalamus. 2. No acute intracranial hemorrhage or midline shift. 3. Age-related involutional changes with findings suggestive of chronic microvascular ischemic diseas e. The above report was generated using voice recognition software. It may contain grammatical, syntax o r spelling errors. Electronically signed by: Billy Gillis M.D. 02/02/2019 4:31 PM
--- NOTE | 2019-02-02 16:58 | Discharge Summary ---
Date of Service February 02, 2019 Admission HPI Per Admitting Provider This is an 83 year old F who has a significant PMH of T2DM, HTN, HLD, CKD-3, Vit D deficiency, glaucoma who presents to [facility] ED due to diplopia, off balance, exp aphasia x 1-2 weeks. Patient expresses over the past 2 weeks she has noted intermittent diplopia bilaterally. "When ER doc was in here there was 2 of him, but not it is back to normal. Elicits she had eye exam 1 week ago without change. Also complains of otherwise being off balance and over the past 2 to 3 days has been having difficulty finding words. "I really have to think of what I am going to say." Further complains of difficulty with fine motor movements such as change in handwriting. Patient has suffered 2 falls in the past week. One last week appears to be mechanical when she was walking over some stones, fell and struck head. She did not lose consciousness. The second fall was approximately 2 days ago whenever she felt off balance and fell backwards into a wall, did not hit head. Denies having symptoms in past. Denies recent illness or history of CVA in the past. Feels overall bilateral lower extremities are weaker than usual but denies any significant weakness or paralysis, inability to speak, slurred speech, facial droop. She denies any fever, chills, sweats, dizziness, lightheadedness, chest pain, palpitations, shortness of breath, nausea, vomiting diarrhea, dysuria, increase in urgency or frequency with urinat ion, hematuria, melena. Last BM was yesterday. Appetite has otherwise been well. No known weight loss. Takes asa on daily basis for preventative measures. Has glaucoma and takes eye gtts for this. Admission Exam Per Admitting Provider Constitutional: WD/WN, F, vitals as above, NAD, sitting up in bed, pleasant, conversing easily Head: Normocephalic, Atraumatic Eyes: PERRL, conjunctivae normal, anicteric sclerae ENMT: external ear and nose normal, oropharynx normal Neck: trachea midline, no thyromegaly normal visual inspection Respiratory: normal respiratory effort, lungs clear to auscultation, no wheeze, rales, rhonchi. Normal insp/exp effort, no accessory muscle use Cardiovascular: RRR, no murmur, no edema Vessels: no JVD or carotid bruit Chest: normal inspection of chest Abdomen: normal bowel sounds, soft, nontender, no hepatosplenomegaly Musculoskeletal: no cyanosis or clubbing, extremities motor strength 5/5 Skin: no rashes, warm and dry normal turgor Neurologic: PERRL, EOMI, accommodation nl, no face palsy, no dysarthria, very minimal word finding difficulty. CN's II-XI intact bilaterally and moves all extremities Psychiatric: A+Ox3, euthymic affect Lymphatic: no cervical or axillary lymphadenopathy : deferred Principal Diagnosis Acute CVA: Right brachium pontis with extension into the inferior right cerebellar hemisphere measures up to 1.8 cm. 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 Normal insp/exp effort, no accessory muscle use Cardiovascular: RRR, no murmur, no edema Vessels: no JVD or carotid bruit Chest: normal inspection of chest Abdomen: normal bowel sounds, soft, nontender, no hepatosplenomegaly Musculoskeletal: no cyanosis or clubbing, extremities motor strength 5/5 Skin: no rashes, warm and dry normal turgor Neurologic: PERRL, EOMI, accommodation nl, no face palsy, no dysarthria, very minimal word finding difficulty. CN's II-XI intact bilaterally and moves all extremities Psychiatric: A+Ox3, euthymic affect Lymphatic: no cervical or axillary lymphadenopathy : deferred Discharge Data Allergies Allergy/AdvReac Type Severity Reaction Status Date / Time No Known Allergies Allergy Unverified 02/02/19 11:16 Consultations Neurology Consultation: (1) CVA (cerebral vascular accident): 1. CT head- 1.4 cm R cerebellar hypodensity, 9 mm subcortical R frontal hypodensity 2. CTA head- 90% stenosis basilar artery 3. MRI brain pending 4. TTE- pending 5. continue aspirin 81 mg plavix 75 mg defer to heparin gtt for transfer 6. PT/OT speech for discharge needs 7. optimize HTN, HLD, DM LDL <90 avoid hypotension 8. [facility] contacted for advise for intervention Ian Samuel [facility] neurosurgery recommended [facility] or [facility] neurovascular and transfer to [facility] on CCM or neurology service through transfer center 9. started heparin gtt for transfer Supervising Physician Co-Signing Physician Notes I have seen and discussed above patient with Dr Lindsey Lebron, neurologyPatient not currently at bedside history reviewed. She has had fluctuating posterior circulation symptoms over several days which have included double vision and instability. While here in the emergency room she had recurrent dysarthria and diplopia. MRI of the brain shows an acute infarction in the right cerebellum right thalamus and right occipital lobe. These do not appear to be hemorrhagic and are relatively small both on CT and MRI. Her CTA shows a greater than 90% stenosis of the basilar artery. Given her fluctuation I would recommend transfer to [facility]. I would recommend heparin therapy. Avoidance of hypotension. The reason for trach transfer is active fluctuation of posterior circulation symptoms. I believe a tertiary care center is appropriate in case she needs any posterior circulation intervention. Ongoing therapy for stroke reduction may include Coumadin but could also include aspirin and Plavix. I have discussed the patient's care with Dr. Paris Lebron MD Ordered Studies MRI Brain: FINDINGS: Keyboard Specialist localizer images demonstrate no gross extracranial abnormality. Midline structures including the corpus callosum, brainstem, optic chiasm, pituitary and pineal glands appear unremarkable on the sagittal T1 series. No cerebellar tonsillar herniation. Degenerative changes noted about the imaged cervical spine. There are 2 subcentimeter foci of slightly increased diffusion-weighted signal measuring up to 6 mm about the right salivary is on image 15 series 4 which demonstrate intermediate signal on ADC map. There are a few punctate foci of restricted diffusion within the right occipital lobe demonstrating decreased signal on the ADC map. There is a 1.2 x 1.8 cm focus of restricted diffusion of the right brachium pontis extending into the inferior right cerebellar hemisphere which demonstrates decreased signal on ADC map and increased T2/FLAIR signal. No acute intracranial hemorrhage, midline shift, abnormal extra-axial collection, hydrocephalus or intracranial mass identified. Mild age-related involutional changes. Moderate/flair hyperintensities about the white matter suggest chronic microvascular ischemic disease. Minimal senescent calcifications of the lentiform nuclei. Major flow voids appear patent. Mastoid air cells are clear. Mild mucosal thickening of the ethmoid air cells. Prior bilateral cataract repair. Skull and soft tissues are within normal limits. IMPRESSION: 1. Acute appearing infarct of the right brachium pontis with extension into the inferior right cerebellar hemisphere measures up to 1.8 cm. Additionally, there are a few scattered punctate acute to subacute appearing infarcts about the right occipital lobe with two subcentimeter subacute appearing infarction of the right thalamus. 2. No acute intracranial hemorrhage or midline shift. 3. Age-related involutional changes with findings suggestive of chronic microvascular ischemic disease. Head/Neck CTA: FINDINGS: There are no lesion suspicious for aneurysm. There is a severe greater than 90% basilar artery stenosis. There is a left posterior cerebral artery origin stenosis. There are areas of mild nonhemodynamically significant atherosclerotic narrowing involving the middle cerebral arteries. The dural venous sinuses appear patent. IMPRESSION: 1. 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 Moderate stenosis of the left posterior cerebral artery origin 3. No evidence of aneurysm. IMPRESSION: 1. No significant stenotic process within the carotid systems. 2. 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 Head CT: IMPRESSION: 1. No acute intracranial hemorrhage or mass effect. 2. 1.4 cm right cerebellar hypodensity. This represents an age indeterminate but likely subacute to chronic infarct. A few additional age indeterminate lacunar infarcts, as described above. Echocardiogram: reveals LVEF 60 to 65%, aortic valve sclerosis mild, without significant aortic valvular stenosis. No ASD appreciated. Mild concentric left hypertrophy. Left ventricular wall motion is normal. Grade I Diastolic dysfunction. LAB STUDIES: Short CBC 02/02/19 Range/Units 10:37 WBC 4.07 L (4.8-10.8) K/uL Hgb 13.5 (12.0-16.0) g/dL Hct 40.2 (37-47) % Plt Count 224 (130-400) K/uL BMP 02/02/19 10:37 Sodium 141 Potassium 3.9 Chloride 106 Carbon Dioxide 30 BUN 20 H Creatinine 1.00 Glucose 142 H Calcium 9.4 Cardiac Enzymes 02/02/19 Range/Units 10:37 Troponin I < 0.015 (0-0.045) ng/ml Liver Function 02/02/19 Range/Units 10:37 Total Bilirubin 0.5 (0.2-1) mg/dl AST 13 L (15-37) U/L ALT 18 (12-78) U/L Alkaline Phosphatase 95 (45-117) U/L Albumin 4.0 (3.4-5.0) gm/dl Urine 02/02/19 Range/Units 11:46 Urine Color Yellow Urine Appearance Cloudy A (Clear) Urine pH 7.0 (4.5-7.5) Ur Specific Kress 1.016 (1.000-1.030) Urine Protein Negative (Negative) Urine Glucose (UA) Negative (Negative) Hospital Course (1) CVA (cerebral vascular accident): This is an 83 year old F who has a significant PMH of T2DM, HTN, HLD, CKD-3, Vit D deficiency, glaucoma who presents to [facility] ED due to diplopia, off balance, exp aphasia x 1-[address] scan of brain revealed 1.4 cm right cerebellar hypodensity, likely represents age-indeterminate vs subacute to chronic infarct. Additional age- indeterminate lacunar infarcts noted as well. CBC relatively unremarkable. CMP significant for elevated BUN 20, creatinine 1.00, glucose 142. Troponin and magnesium WNL. Urinalysis consistent with UTI, positive nitrites, leukocyte esterase, WBC, minimal epithelial cells and bacteria. In ED patient received 324 mg of aspirin. Patient was admitted to medical floor. CTA of Head/neck performed which revealed greater than 90% basilar artery stenosis. MRI performed which revealed acute appearing infarct of the right brachium pontis with extension into the inferior right cerebellar hemisphere measures up to 1.8 cm. Additionally, there are a few scattered punctate acute to subacute appearing infarcts about the right occipital lobe with two subcentimeter subacute appearing infarction of the right thalamus. She was seen and evaluated by neurology. ASA and Plavix was initiated to start. Given findings IV heparin initiated. High intensity atorvastatin 40mg initiated daily. Per neurology recommendations are to transfer to tertiary care center [facility] for neurosurgical evaluation given posterior circulation stenosis. Also of significance UA concerning for infection with leukocyte jorge alberto rase, nitrites, bacteria. She is afebrile and asymptomatic. She was given 1 g Rocephin while in ED. Patient accepted at [facility] by Neurology Dr. Wendy Waggoner (2) Diabetes: Last A1C 08/3018 6.9 Hold metformin Novolog per sliding scale (3) Hypertension: Allowing permissive HTN on losartan as outpt (4) HLD (hyperlipidemia): Lipid panel 08/2018 total chol 229, LDL 158 Not on Statin therapy Fasting lipid panel in a.m. Initiate high intensity statin (5) CKD (chronic kidney disease) stage 3, GFR 30-59 ml/min: Baseline Cr 1.0 Monitor (6) Vitamin D deficiency, unspecified: Continue Vit D supplementation (7) Glaucoma: Continue eye gtts (8) DVT prophylaxis: IV heparin SCD/TEDS Full Code Disposition: to be determined, case management, PT/OT/ST consulted Follow up: PCP Dr. Alarcon upon discharge Total Time Total Time Spent Total Time Spent (In Minutes): > 30 minutes Total Time Includes: Examination of the Patient, Discharge Planning, Medication Reconciliation and Communication With Other Providers Discharge Plan Discharge Items Patient Disposition: Transfer Acute Care Hospital Reason For Visit: CVA Discharge Diagnosis: Acute Stroke Condition: Fair Discharge Goals: Decrease discomfort, Diagnostic testing, Improve disease control, Improve function and Increase independence Activity: As commented below Lifting: None Bathing: No limitations Exercise/Sports: None Driving/Machine Use Comment: No driving until cleared by neurology Non-emergency contact: Primary Care Provider, Hospitalist and Neurologist Call non-emergency contact if: you have any medication questions, your symptoms worsen, your pain is not controlled and you have a fever Follow-up/Referrals: Mainor Alarcon MD [Primary Care Provider] - Diet: Carb Consistent or DM2 Addtl Provider Instructions: MEDICATION CHANGES: New Medications started at our facility: Plavix 75mg daily Atorvastatin 40mg daily SUMMARY OF TEST RESULTS: MRI at our facility demonstrates you have had an acute stroke CT scan of head and neck reveal you have a significant blockage on an artery that supplies blood to the posterior aspect of your brain: This is causing your current symptoms. Because of the location and cause of stroke you are being transferred to [facility] for continued care Urine study shows you may have infection so you were given a dose of antibiotic called ceftriaxone PENDING TEST RESULTS: none RECOMMENDATIONS FOR FOLLOW-UP: Please follow instructions received at [facility] Please follow up with PCP Dr. Alarcon upon hospital discharge OTHER INSTRUCTIONS: Seek medical attention if you have: * temperature above 101 * chest pain or trouble breathing * abdominal pain, nausea, vomiting * diarrhea, dark stools or bloody stools * any unanswered questions or concerns Call 911 if symptoms are severe. Please take good care of yourself. Call if you have any questions or problems. You can reach a [facility] hospitalist on duty at [facility] 24 hours a day by calling [phone]. My pager number # is [phone]. Prescriptions: New atorvastatin 40 mg Tablet 40 mg PO QAM Qty: 30 RF: 0 clopidogrel 75 mg Tablet 75 mg PO QAM Qty: 30 RF: 0 Continued latanoprost 0.005 % Drops 1 drp OPHTHALMIC (EYE) HS RF: 0 acetaminophen [Tylenol] 325 mg Tablet 650 mg PO BID PRN (Reason: Pain) RF: 0 aspirin [Aspirin Low Dose] 81 mg Tablet,Delayed Release (Dr/Ec) 81 mg PO DAILY RF: 0 metformin 1,000 mg Tablet 500 mg PO BID RF: 0 losartan 25 mg tablet 25 mg PO DAILY RF: 0 magnesium 250 mg Tablet 250 mg PO DAILY RF: 0 calcium carbonate-vitamin D3 [Calcium 500 + D] 500 mg(1,250mg) -200 unit Tablet 1 tab PO BID RF: 0 omega 7-fmd-hjk-fish oil [Fish Oil] 1,000 mg (120 mg-180 mg) Capsule 1 cap PO DAILY RF: 0 Multivitamin Women 50 Plus 8 mg iron-400 mcg-300 mcg Tablet 1 tab PO DAILY RF: 0 Glucosamine Chondroitin 550-30-1 mg Capsule 2 cap PO DAILY RF: 0 Discontinued diphenhydramine-acetaminophen [Tylenol PM Extra Strength] 25-500 mg Tablet 0.5 tab PO HS RF: 0 Excedrin Extra Strength 250-250-65 mg Tablet 2 tab PO BID PRN (Reason: Headache) RF: 0 Stand-Alone Forms: My [facility] Discharge Orders: Discharge Order (Routine); Ordered 02/02/19 Ordered By: Etelvina Zimmerman Admission Data Admit Date/Time: 02/02/19 12:30 Attending Provider: Rj Toledo Admit Provider: Pedro Pablo Lopez Primary Care Provider: Mainor Alarcon Other Providers: Lindsey Lebron ; Pedro Pablo Lopze Service: Telemetry Other Pending Studies at Discharge: No
[2019-02-02] MEDS ORDERED: HEPARIN SODIUM/DEXTROSE 25,000 UNITS/500 ML BAG IV SCH (17:00)
[2019-02-02] MEDS: INSULIN ASPART 100 UNITS/ML 3 ML PEN SC SCH ×2 (17:26→20:32)
[2019-02-02] MEDS ORDERED: STROKE PATIENT DISCHARGE STA (17:34)
[2019-02-02] MEDS ORDERED: CALCIUM 600MG + VIT D 400 IU TAB PO SCH (21:00)
[2019-02-02] MEDS ORDERED: LATANOPROST 0.005% OP SOLN 2.5 ML BTL OP SCH (21:00)
[2019-02-03] MEDS ORDERED: ASPIRIN 81 MG ECTAB PO SCH (09:00)
[2019-02-03] MEDS ORDERED: CEROVITE ADV FORMULA TAB PO SCH (09:00)
[2019-02-03] MEDS ORDERED: ATORVASTATIN 40 MG TAB PO SCH (09:00)
[2019-02-03] MEDS ORDERED: OMEGA-3 (PURIFIED FISH OIL) 1 GM CAP PO SCH (09:00)
[2019-02-03] MEDS ORDERED: MAGNESIUM OXIDE 400 MG TAB PO SCH (09:00)
[2019-02-03] MEDS ORDERED: LOSARTAN POTASSIUM 25 MG TAB PO SCH (09:00)
[2019-02-03] MEDS ORDERED: CLOPIDOGREL BISULFATE 75 MG TAB PO SCH (09:00)
[2019-02-03] MEDS ORDERED: NON-FORMULARY MEDICATION (Glucos Sul 2kcl-Msm-Chond-C-Mn [Glucosamine Chondroitin] 2 CAP) PO SCH (09:00)
[2019-02-03] MEDS ORDERED: ENOXAPARIN INJ 40 MG/0.4 ML SYR SQ SCH (09:00)
[2019-02-03] MEDS ORDERED: cefTRIAXone SODIUM 1,000 MG in DEXTROSE 5% 50 ML IV SCH (14:00)
== END 2019-02-02 22:23 | disposition short-term general hospital (02) | DRG 66 ==
LOC: ED 10:02 → 2S 12:30

== ENCOUNTER 2024-08-10 22:46 | Inpatient (IN) ==
--- NOTE | 2024-08-10 23:03 | Emergency Department Note ---
Impression & Plan Stroke-like episode, Closed head injury, Complex laceration of scalp, Fall ED Provider Note CHIEF COMPLAINT: Fall HISTORY OF PRESENTING ILLNESS: This 89-year-old female patient presents to the emergency department with her for evaluation after a fall. The patient states that she tripped and fell over the rug while walking to the bathroom. The patient hit the corner of her head on the wall. She did not fall down. She is on Plavix. She denies any loss of consciousness. She has a laceration to the right side of her forehead/scalp. Her tetanus shot is up to date. Rates the pain in her head a 3/10. She denies any neck or back pain. Denies any other pain or symptoms. Denies dizziness, change in vision, nausea, vomiting, or change in personality. Denies chest pain, SOB, or abdominal pain. REVIEW OF SYSTEMS: See HPI for pertinent positives and pertinent negatives. ALLERGIES: NKDA MEDICATIONS: See below PAST MEDICAL HISTORY: See below PHYSICAL EXAM: VITALS: Vitals are noted on the nurse's note and reviewed by myself. GENERAL: No acute distress, non-diaphoretic. SKIN: The patient has a 6.5 cm crescent-shaped laceration to the right side of the forehead extending into the scalp past the hairline.the edges gape widely apart with traction. No deep structures seen injured within the base of the wound. No foreign bodies noted. The patient does have continued active bleeding with a few pulsating small vessels present around the edges of the wound. Capillary reflex less than 2 seconds. HEAD: The patient is tender to palpation over the upper portion of the forehead and scalp where the laceration is. No obvious step-offs felt. EARS: Bilateral external auditory canals clear without tragus tenderness. Bilateral tympanic membranes pearly nunez without erythema or effusion. No mastoid tenderness bilaterally. No hemotympanum. No recinos sign. EYES: Pupils equal round and reactive to light and accommodation. Conjunctivae without injection, sclerae without icterus. Extraocular movements intact. No nystagmus. NOSE: Patent without discharge. No sinus tenderness. No septal hematoma or bleeding. FACE: No facial bone tenderness other than the top of the forehead and scalp. Full range of motion of the jaw without tenderness. MOUTH: Mucous membranes moist. Pharynx without erythema or exudate. Uvula midline. Airway patent. Tongue does not deviate. NECK: Supple without nuchal rigidity. Cervical spine is nontender. Full range of motion of the neck without tenderness. HEART: Regular rate and rhythm without murmurs gallops or rubs. LUNGS: Clear to auscultation bilaterally without wheezes, rales or rhonchi. No retractions or accessory muscle use. CHEST: No chest wall tenderness. ABDOMEN: Positive bowel sounds x 4. Normal tympanic percussion. Soft, nontender, without masses or organomegaly. No guarding or rebound tenderness. MUSCULOSKELETAL: No tenderness of the thoracic or lumbar spine. No tenderness with pelvic rocking. Full range of motion without tenderness to palpation in all extremities. Normal gait. Strength 5/5 throughout. Peripheral pulses 2+. NEURO: Patient was alert and oriented to person place and time. Normal mental status exam. Normal sensation to light and sharp touch. Cerebellar function intact. No focal neurological deficits. REPEAT EXAM after the incident: GENERAL: The patient was not answering questions and was not speaking at the time of my exam. Nursing staff stated that the patient started slurring her speech while on the toilet, but then stopped talking. EYES: The patient had forced deviation of her gaze. Pupils were still equal, round, and reactive. The patient was unable to follow commands to test extraocular movements. No obvious nystagmus noted. FACE: No obvious facial droop. MOUTH: The patient did not open her mouth to stick out her tongue because of her confusion. HEART: Regular rate and rhythm without murmurs gallops or rubs. LUNGS: Clear to auscultation bilaterally without wheezes, rales or rhonchi. No retractions or accessory muscle use. No chest wall tenderness. ABDOMEN: Positive bowel sounds x 4. Normal tympanic percussion. Soft, nontender to palpation. MUSCULOSKELETAL: The patient was unable to move her right arm and right leg. She had decreased range of motion and decreased strength of the left arm and left leg. NEURO: The patient was not oriented and was unable to answer questions. DIFFERENTIAL DIAGNOSIS: Differential diagnosis includes concussion, contusion, fracture, subluxation, dislocation, subdural hematoma, epidural hematoma, intraparenchymal hemorrhage, contusion, ligamentous injury, neurovascular, compartment syndrome, rhabdomyolysis, intra-abdominal injury, splenic rupture, hepatic rupture, rib fractures, cardiac contusion, pneumothorax, hemothorax, cardiac tamponade, intrathoracic injury, neurologic, as well as other pathologies. ED COURSE AND MEDICAL DECISION MAKING: HISTORY FROM INDEPENDENT HISTORIAN: Additional history obtained from the patient's . MEDICATIONS GIVEN: Tylenol 1000 mg IV. Zofran 4 mg IV, Pepcid 20 mg IV. MONITOR: Continuous lodge officer: Order was placed for continuous lodge officer. Patient was placed on the lodge officer and continuous pulse ox. Patient was noted to be in normal sinus rhythm at an initial rate of 70 bpm per my interpretation. EKG: EKG was interpreted by myself as normal sinus rhythm at 76 bpm with no acute ST or T wave changes, but her QT has lengthened since her previous EKG. QT/QTc of 418/470. INTERPRETATION OF LABS: I interpreted the labs with full lab results as below in the lab section of this note. Laboratory results pertinent to the emergent complaint are discussed in the MDM section below. The patient was advised to follow up with their PCP and/or specialist(s) for further outpatient monitoring and management of any abnormal results. INTERPRETATION OF IMAGING: Imaging studies were interpreted by myself and read by radiology as per the imaging section of this note. The patient was advised to follow up with their PCP and/or specialist(s) for further outpatient management of any non-emergent abnormal findings. Initial CT scan of the head without contrast showed no evidence of acute intracranial abnormality. CT scan of the cervical spine showed no acute fracture or subluxation. However, there was critical spinal stenosis at C4/C5 through C6/C7. Recommend MRI of the cervical spine to evaluate for myelopathy. The patient has no cervical spine pain or tenderness to palpation. She is able to move her neck fully. Normal strength and sensation of the upper extremities. Therefore, we did not feel that an MRI of the cervical spine was needed emergently. Chest x-ray showed bilateral prominent bronchovascular markings with no interval changes compared to the prior study. No acute cardiopulmonary etiology. After the patient's strokelike symptoms, repeat CT scans were obtained. The repeat CT scan of the head without contrast was approximately 4 hours after the first CT scan. Repeat CT scan of the head without contrast showed no acute intracranial bleed. There is advanced periventricular ischemic changes which are stable. Capacious CSF spaces and ventricles are keeping with the patient's age. Old lacunar infarct seen at the right putamen and right periventricular white matter which is stable. Hypodensity seen at the right frontal subcortical region which is most likely due to an old insult which is stable. CTA of the head with IV contrast showed diffuse atherosclerotic changes. The M1 segment of the left MCA showed mild narrowing, but patent. Atherosclerotic calcified plaques of cavernous and clinoid parts of both internal carotid arteries noted. 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 Atherosclerotic changes and tight luminal narrowing at the middle/distal part of the basilar artery. CTA of the neck with IV contrast showed both carotid bulbs and both proximal internal carotid arteries with calcified atherosclerotic changes which appear stable. The right vertebral artery showed diffuse attenuation/hypoplasia which appears stable. Dominant left vertebral artery with mild atherosclerotic changes which appear stable. CONSULTATIONS: On-call hospitalist PROCEDURES: Risks and benefits of the procedure were discussed. Verbal consent was obtained to perform the procedure and the procedure was performed by myself. Using sterile technique the wound was cleaned with Betadine. The area was sterilely draped. A total of 15 ml of 1% lidocaine with epi was used to anesthetize the wound and to help control bleeding. Once the patient was anesthetized, the wound was copiously irrigated under pressure with sterile saline. The wound was explored and was as described above. The patient had multiple pulsating small vessels causing continued bleeding. The bleeding did not stop after the lidocaine with epi and pressure. Therefore, a total of 3 simple interrupted 5-0 Vicryl sutures were placed to tie off the active bleeders. This did achieve hemostasis. The laceration was then able to be further explored with no other deep structures injured within the base of the wound. The wound was again copiously irrigated with sterile saline. The portion of the laceration that was behind the hairline was repaired using a total of 8 evangelina. The portion of the laceration on the forehead was repaired using 6 simple interrupted 6-0 nylon sutures with the wound edges being well approximated. The patient tolerated the procedure well. Hemostasis was achieved. The area was cleaned with sterile saline and dressed with bacitracin ointment. CRITICAL CARE: I have personally spent 45 minutes of critical care time in the direct management of this patient. This includes bedside care, interpretation of diagnostic studies, and testing, discussion with consultants, patient, and family members, and other required patient management activities. This 45 minutes is in excess of all separately billable procedures. MDM SUMMARY: The patient was made an injury alert. I examined the patient. The patient had a mechanical fall after tripping over the rug while walking to the bathroom. She fell into the corner of a wall causing a laceration to the top of her forehead and scalp. She did not fall down. She denies loss of consciousness, but she is on Plavix. She has discomfort in the area of the laceration, but denies any other pain or symptoms. The only injury noted on exam was the forehead/scalp laceration. She denies any neck pain and there is no neck tenderness. She has full range of motion of the neck without pain. Therefore, cervical collar was not placed. An IV lock was placed and labs were drawn. White blood cell count low at 4.76. Hemoglobin normal at 12.6. Platelet count normal at 219. Coags were normal. Glucose 153, but CMP otherwise normal. High-sensitivity troponin normal. The patient was given IV Tylenol with resolution of her pain. Initial CT scan of the head without contrast showed no evidence of acute intracranial abnormality. CT scan of the cervical spine showed no acute fracture or subluxation. However, there was critical spinal stenosis at C4/C5 through C6/C7. Recommend MRI of the cervical spine to evaluate for myelopathy. The patient has no cervical spine pain or tenderness to palpation. She is able to move her neck fully. Normal strength and sensation of the upper extremities. Therefore, we did not feel that an MRI of the cervical spine was needed emergently. The patient's bleeding was initially controlled with a pressure bandage. However, after the patient returned from CT, nursing staff came to notify me that the patient had significant bleeding from the laceration that was only partially controlled with pressure. I immediately went to the room and examined the patient. The patient had 3 small pulsatile vessels that appear to be the source of bleeding. There was some improvement of the bleeding after lidocaine with epi, but ultimately Vicryl sutures were placed to help control the bleeding. The patient's laceration was then able to be repaired as above. Nursing staff was able to clean the patient's hair after the wound repair and no additional lacerations were noted. The patient felt much better after the IV Tylenol and the laceration repair. The patient states that it was a mechanical fall and she had no focal deficits on exam and no evidence for additional signs of trauma. The patient wished to be discharged home and I feel this is appropriate. The patient was independently evaluated by Dr. Summers, who agrees with my assessment and treatment plan. The patient was given discharge instructions and was ready to be discharged home. However, the patient needed to use the restroom prior to discharge. While nursing staff was helping the patient on the toilet, the patient became unresponsive. The patient had snoring respirations, became aphasic, had forced deviation towards the left, and was unable to move the right side of her body. Nursing staff immediately came to get me to evaluate the patient again. The patient's symptoms were concerning for a stroke and a stroke alert was called. As the patient was being moved from the bathroom to the stretcher, she did vomit, but no obvious aspiration as nursing staff return to the patient to her side. The patient was unable to speak or answer any questions at the time of my exam. She was unable to move her right arm or right leg. She was also unable to follow commands. The patient's last known well was 3 AM just prior to using the toilet. The patient's NIH stroke score was [address] Summers was also called to the bedside to again examine the patient. The patient's strokelike symptoms had fully resolved within 5 minutes of onset of the symptoms. The patient states that she did not remember what happened during the episode. Since it had been approximately 4 hours since her previous CT scan and the patient is on Plavix, a repeat CT scan of the head without contrast was obtained in addition to the CTA of the head and neck. Since TNKase was not indicated given the patient's trauma and resolution of her symptoms, telestroke and neurology consult was not placed after discussion with Dr. Summers. Chest x-ray showed bilateral prominent bronchovascular markings with no interval changes compared to the prior study. No acute cardiopulmonary etiology. EKG without acute abnormalities. High-sensitivity troponin was normal. The repeat CT scan of the head without contrast was approximately 4 hours after the first CT scan. Repeat CT scan of the head without contrast showed no acute intracranial bleed. There is advanced periventricular ischemic changes which are stable. Capacious CSF spaces and ventricles are keeping with the patient's age. Old lacunar infarct seen at the right putamen and right periventricular white matter which is stable. Hypodensity seen at the right frontal subcortical region which is most likely due to an old insult which is stable. CTA of the head with IV contrast showed diffuse atherosclerotic changes. The M1 segment of the left MCA showed mild narrowing, but patent. Atherosclerotic calcified plaques of cavernous and clinoid parts of both internal carotid arteries noted. 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 Atherosclerotic changes and tight luminal narrowing at the middle/distal part of the basilar artery. CTA of the neck with IV contrast showed both carotid bulbs and both proximal internal carotid arteries with calcified atherosclerotic changes which appear stable. The right vertebral artery showed diffuse attenuation/hypoplasia which appears stable. Dominant left vertebral artery with mild atherosclerotic changes which appear stable. The patient did not have any additional strokelike symptoms after the resolution of the 5-minute episode of strokelike symptoms. The patient continued to be monitored in the ER. Given her symptoms, the patient will require admission for further evaluation and treatment as well as MRIs and further stroke workup. I spoke with the charge nurse to discuss with MRI whether the patient's evangelina needed to be removed. The charge nurse stated that upon previous discussion with MRI, the evangelina were MRI compatible and would not affect the images and did not need to be removed. I spoke with the on-call hospitalist who agreed to admit the patient for further evaluation and treatment. Please refer to their dictation for further details. The patient's care was transferred in stable condition. DIAGNOSIS: Stroke like symptoms Closed head injury Complex scalp laceration Fall Plavix therapy INITIAL TREATMENT PLAN/DISCHARGE INSTRUCTIONS prior to admission due to the strokelike symptoms: Your CT scan of the head was negative for acute intracranial injury. However, CT scans cannot rule out possible future injury to the brain and you should return to the emergency department for any worsening symptoms as discussed on the concussion/head injury handout. Tylenol 1000 mg every 6 hrs as needed for pain. Do not take more than 4000 mg of Tylenol in a 24 hr period and take ibuprofen with food. Make sure that you stay well rested. You should also avoid things like screen time, bright lights, loud noises, smoke exposure, caffeine, or other stimulation that can exacerbate your symptoms. Avoid alcohol and contact/strenuous activities (such as sports) for at least 5 days AND until you have been symptom free off of medication for at least 24-[address] scan of your neck did not show acute fractures, but did show critical spinal canal stenosis at C4/C5 through C5-6/C7. An MRI is recommended as indicated. This can be done as an outpatient since you are asymptomatic at this time. Talk to your family doctor about scheduling this MRI if indicated. You should follow up with your family doctor in the next 48-72 hrs for a recheck of your symptoms. Call for an appointment. Keep the stapled and sutured wound clean and dry. You can shower and gently wash the wound, but no soaking the wound in any water and no swimming. Do not allow any crusting or dried blood to accumulate on the evangelina/sutures. If this occurs, use a 1:1 solution of hydrogen peroxide/water on a Q-tip to clean the wound. Use an antibiotic ointment like OTC neosporin or triple antibiotic ointment for 3 days and then let the wound dry. Staple and suture removal in 8 days. You can call your family doctor to set up an appointment, follow up with an Urgent Care, or return to the ER to have the evangelina removed. Follow up with your family doctor or return sooner for any signs of infection (increasing redness, swelling, drainage, fever, or worsening pain). Ice the area as needed for swelling and pain. Any wound takes up to 1 year to fully resolve and the scar will continue to improve during this time. If the wound gets exposed to direct sunlight, it can get a pink or brown discoloration to it that will be permanent. Keep the wound covered anytime it is in sun until the evangelina are removed and then keep the area covered or use SPF 50 or higher sunscreen anytime it is exposed to direct sunlight for the first year. Two weeks after staple removal, you can use Vitamin E oil or Mederma on the wound for reduction of the scar if desired. You have been examined and treated today on an emergency basis only. Your workup in the ER did not reveal the need for further emergency workup/treatment or admission at this time. However, this ER visit is not a substitute for, or an effort to provide, complete comprehensive medical care. It is impossible to recognize and treat all injuries or illnesses in a single emergency department visit. It is therefore important that you follow up closely with your family doctor and/or your specialist(s) if applicable for further outpatient evaluation and treatment. It is also important that you follow-up with your family doctor and/or your specialist(s) for further monitoring and outpatient management of any abnormalities seen on your laboratory studies and/or imaging. Call your family doctor and/or specialist(s) as soon as possible to schedule an appointment for follow up from your emergency department visit. Past Med/Surg History Problem List (Updated 08/11/24 @ 09:14 by Salma Graves PA-C) Stroke-like episode (Acute) Fall (Acute) Complex laceration of scalp (Acute) Closed head injury (Acute) Medical History HLD (hyperlipidemia) CKD (chronic kidney disease) stage 3, GFR 30-59 ml/min Vitamin D deficiency, unspecified Glaucoma CVA (cerebral vascular accident) Hypertension Diabetes Surgical History History of shoulder surgery History of total hip arthroplasty History of tubal ligation History of colonoscopy Family History Father Myocardial infarction Mother of unknown cause Other Family history non-contributory Social History Smoking Status: Never smoker packs per day: 1; Second Hand Exposure: No; Do You Dip or Chew Tobacco: No; Hx Alcohol Use: Yes Alcohol type: wine and hard liquor Hx Substance Use: No Preferred Language: Sami Communication Ability: Effective Communication Ability Comment: double vision Picture Engraver Required: No Beliefs That Will Affect Care: None marital status: Current Living Situation: Spouse current occupational status: retired 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 Feels Safe at Home: Yes Assistive Devices: Cane and Glasses Allergies Allergies Allergy/AdvReac Type Severity Reaction Status Date / Time No Known Allergies Allergy Unverified 04/05/20 09:47 Home Meds Home Medications Medication Instructions Recorded Confirmed atorvastatin 40 mg tablet 40 mg PO DAILY 08/11/24 08/11/24 clopidogrel 75 mg tablet 75 mg PO DAILY 08/11/24 08/11/24 dorzolamide 22.3 mg-timolol 6.8 1 drp OPB BID 08/11/24 08/11/24 mg/mL eye drops losartan 25 mg tablet 25 mg PO DAILY 08/11/24 08/11/24 metformin 500 mg tablet,extended 500 mg PO BID 08/11/24 08/11/24 release 24 hr Results & Data (ED) Vital Signs Vital Signs - 24 hr 08/10/24 22:50 08/10/24 23:04 08/10/24 23:14 Temperature 36.8 C Temperature Source Temporal Artery Scan Pulse Rate 80 75 Pulse Rate [Apical] 76 Pulse Rate from SpO2 Sensor Respiratory Rate 18 16 Respiratory Effort / Characteristics Non-Labored Non-Labored Spontaneous Respiratory Depth Normal Normal Respiratory Pattern Blood Pressure 150/91 H Blood Pressure [Right Arm] 148/89 H Blood Pressure Mean 110 Blood Pressure Mean [Right Arm] 108 Pulse Oximetry 97 97 Oxygen Delivery Method Room Air Room Air Sepsis Recent Fever Within 48 Hours No Sepsis New/Unexplained Change in Mental Status No Sepsis Action Taken by Nursing No Action Required 08/11/24 01:00 08/11/24 03:46 08/11/24 05:00 Temperature Temperature Source Pulse Rate Pulse Rate [Apical] 80 69 71 Pulse Rate from SpO2 Sensor Respiratory Rate 21 16 18 Respiratory Effort / Characteristics Non-Labored Spontaneous Non-Labored Non-Labored Respiratory Depth Normal Normal Normal Respiratory Pattern Regular Blood Pressure Blood Pressure [Right Arm] 124/81 121/94 95/56 L Blood Pressure Mean Blood Pressure Mean [Right Arm] 95 103 69 Pulse Oximetry 97 95 98 Oxygen Delivery Method Room Air Room Air Room Air Sepsis Recent Fever Within 48 Hours Sepsis New/Unexplained Change in Mental Status Sepsis Action Taken by Nursing 08/11/24 06:23 08/11/24 06:36 08/11/24 07:00 Temperature Temperature Source Pulse Rate 73 72 Pulse Rate [Apical] 77 Pulse Rate from SpO2 Sensor 72 Respiratory Rate 18 19 Respiratory Effort / Characteristics Respiratory Depth Respiratory Pattern Blood Pressure Blood Pressure [Right Arm] 112/67 Blood Pressure Mean Blood Pressure Mean [Right Arm] 82 Pulse Oximetry 98 91 Oxygen Delivery Method Room Air Room Air Sepsis Recent Fever Within 48 Hours Sepsis New/Unexplained Change in Mental Status Sepsis Action Taken by Nursing 08/11/24 07:36 Temperature Temperature Source Pulse Rate 78 Pulse Rate [Apical] Pulse Rate from SpO2 Sensor 78 Respiratory Rate 13 Respiratory Effort / Characteristics Respiratory Depth Respiratory Pattern Blood Pressure Blood Pressure [Right Arm] Blood Pressure Mean Blood Pressure Mean [Right Arm] Pulse Oximetry 96 Oxygen Delivery Method Room Air Sepsis Recent Fever Within 48 Hours Sepsis New/Unexplained Change in Mental Status Sepsis Action Taken by Nursing Laboratory Data 08/10/24 23:08 08/10/24 23:08 Lab Results 08/10/24 08/11/24 08/11/24 Range/Units 23:08 03:09 04:12 WBC 4.76 L (4.8-10.8) K/ul RBC 3.95 L (4.20-5.40) M/uL Hgb 12.6 (12.0-16.0) g/dl Hct 37.2 (37.0-47.0) % MCV 94.2 (80.0-100.0) fL MCH 31.9 (25.0-34.0) pg MCHC 33.9 (32.0-36.0) g/dL RDW Std Deviation 48.9 H (36.4-46.3) fL RDW Coeff of Sandra 14.2 (11.5-14.5) % Plt Count 219 (130-400) K/uL MPV 11.1 (9.4-12.4) fL Immature Gran % (Auto) 0.2 % Neut % (Auto) 45.8 % Lymph % (Auto) 41.4 % [place] % (Auto) 9.7 % Eos % (Auto) 2.1 % Baso % (Auto) 0.8 % Neut # (Auto) 2.18 (1.40-6.50) K/uL Lymph # (Auto) 1.97 (1.20-3.40) K/uL [place] # (Auto) 0.46 (0.11-0.59) K/uL Eos # (Auto) 0.10 (0.00-0.50) K/uL Baso # (Auto) 0.04 (0.00-0.20) K/uL Immature Gran # (Auto) 0.01 (0.01-0.20) K/uL PT 10.2 (9.0-12.0) Seconds INR 0.9 (0.9-1.1) APTT 26 (21-31) Seconds PTT Ratio 1.0 Sodium 139 (136-145) mmol/L Potassium 3.7 (3.5-5.1) mmol/L Chloride 101 (98-107) mmol/L Carbon Dioxide 31 (21-32) mmol/L Anion Gap 7 (3-11) BUN 20 (6-23) mg/dl Creatinine 1.12 (0.6-1.2) mg/dl Est Cr Clr Drug Dosing 33.0 ml/min eGFR 47.59 BUN/Creatinine Ratio 17.9 (10-20) Glucose 153 H (70-99(Fasting)) mg/dl POC Glucose 197 H (70-99) mg/dl Calcium 10.0 (8.6-10.3) mg/dl Total Bilirubin 0.5 (0.2-1.0) mg/dl Direct Bilirubin 0.1 (0-0.2) mg/dl AST 20 (13-39) U/L ALT 13 (7-52) U/L Alkaline Phosphatase 78 (34-104) U/L Troponin I High Sens 4.3 (0-14) pg/ml Total Protein 7.3 (6.0-8.3) gm/dl Albumin 4.5 (3.4-5.0) gm/dl Administered Medications Discontinued Medications Acetaminophen (Acetaminophen 325 Mg Tab) 650 mg PO NOW STA Stop: 08/11/24 07:36 Last Admin: 08/11/24 07:47 Dose: 650 mg Documented By: SHILOH Acetaminophen ([facility]) 1,000 mg in 100 mls @ 400 mls/hr IV NOW STA Stop: 08/10/24 23:24 Last Infusion: 08/11/24 00:05 Dose: Infused Documented By: Admin: 08/10/24 23:41 Dose: 400 mls/hr Documented By: BAILEY Famotidine (Pepcid 20mg Iv Push) 20 mg in 5 mls @ 2.5 mls/min IV NOW STA Stop: 08/11/24 04:09 Last Admin: 08/11/24 04:15 Dose: 2.5 mls/min Documented By: HONEY Ioversol (Optiray 320 125ml) 125 ml IV ONCE ONE Stop: 08/11/24 03:27 Last Admin: 08/11/24 03:27 Dose: 118 ml Documented By: ESTELA Lidocaine/Epinephrine (Lidocaine 1%/Epinephrine 1:100,000 50 Ml Vial) 5 ml INFIL NOW ONE Stop: 08/10/24 23:10 Last Admin: 08/11/24 00:25 Dose: 5 ml Documented By: BAILEY Ondansetron HCl (Ondansetron Inj 2 Mg/Ml 2 Ml Vial) Confirm Administered Dose 4 mg .ROUTE .[facility] ONE Stop: 08/11/24 03:11 Last Admin: 08/11/24 03:13 Dose: 4 mg Documented By: BAILEY Imaging Data Radiologist's Impression: Cervical Spine CT 08/10/24 23:09 Exam(s): CT C SPINE EXAM: CT Cervical Spine Without Intravenous Contrast CLINICAL HISTORY: Reason for exam: Trauma. TECHNIQUE: Axial computed tomography images of the cervical spine without intravenous contrast. CTDI is 23.67 mGy and DLP is 1207.06 mGy-cm. Automated exposure control was utilized for the study. A dose lowering technique was utilized adhering to the principles of ALARA. COMPARISON: Prior CT scan of the cervical spine from March 30, 2024. FINDINGS: Vertebrae: Unremarkable. No acute fracture. Discs/spinal canal/neural foramina: No acute findings. There is a critical spinal canal stenosis at C4-5, C5-6 and C6-7. Soft tissues: Unremarkable. IMPRESSION: No evidence of acute cervical spine pathology. Critical spinal canal stenosis at C4-5 through C6-7. Recommend MRI of the cervical spine to evaluate for myelopathy. Electronically signed by: France Rivera MD 08/11/24 01:[address] 08/10/24 23:09 Exam(s): CT HEAD Without Contrast EXAM: CT Head Without Intravenous Contrast CLINICAL HISTORY: Reason for exam: Trauma. TECHNIQUE: Axial computed tomography images of the head/brain without intravenous contrast. CTDI is 38.9 mGy and DLP is 1207.06 mGy-cm. Automated exposure control was utilized for the study. A dose lowering technique was utilized adhering to the principles of ALARA. COMPARISON: Prior head CT from March 30, 2024. FINDINGS: Brain: Unremarkable. No hemorrhage. Mild nonspecific white matter changes.. No edema. Ventricles: Unremarkable. No ventriculomegaly. Bones/joints: Unremarkable. No acute fracture. Soft tissues: Unremarkable. Sinuses: Unremarkable as visualized. No acute sinusitis. Mastoid air cells: Unremarkable as visualized. No mastoid effusion. IMPRESSION: No evidence of acute intracranial pathology. Electronically signed by: France Rivera MD 08/11/24 01:03 AM Head CTA 08/11/24 03:08 EXAM: CT angio head w con CLINICAL HISTORY: Stroke alert TECHNIQUE: Axial CT angiography of the head was done with 118 ML OPTIRAY 320 contrast and sagittal and coronal reformats with MIP reconstructions. One of these 3D techniques was utilized: Maximum Intensity Pixel (MIP), 3D Reconstructed Images, Volume Rendered Images, Surface Shaded Rendering. One of the following dose reduction techniques were utilized for this exam: Automated exposure control, adjustment of the mA and/or kV according to patient size, and use of iterative reconstruction. COMPARISON: None. FINDINGS: Intracranial Arteries: The intracranial portions of the internal carotid arteries, anterior cerebral arteries, right middle cerebral arteries, and posterior cerebral arteries, are opacified. The M1 segment of left MCA showed mild narrowing, however patent. No evidence of an aneurysm. atherosclerotic calcified plaques of cavernous and clinoid parts of both internal carotid arteries noted. 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 Atherosclerotic changes and tight luminal narrowing of the middle/distal part of the basilar artery were noted . Egan of Small: The Egan of Small is complete. No vascular malformations or aneurysms. Venous Structures: Normal opacification of the major dural venous sinuses. No evidence of venous sinus thrombosis. Brain Parenchyma: No evidence of acute infarct, hemorrhage, or mass effect. Ventricular System: Capacious ventricular system and CSF spaces. IMPRESSION: 1. Diffuse atherosclerotic changes. 2. The M1 segment of left MCA showed mild narrowing, however patent. 3. Atherosclerotic calcified plaques of cavernous and clinoid parts of both internal carotid arteries were noted. 4. 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 5. Atherosclerotic changes and tight luminal narrowing of the middle/distal part of the basilar artery. Electronically signed by Estela Singh 08-11-2024 04:28 AM Neck CTA 08/11/24 03:08 EXAM: CT angio neck with con CLINICAL HISTORY: stroke alert. TECHNIQUE: CT angiography study of the neck vessels with IV contrast was performed and multiple axial sections were obtained with coronal and sagittal reconstructions. 118 ML OPTIRAY 320 was administered, CTDI:72.24 mGy, DLP: 1108.94 mGy*cm. One of the following dose reduction techniques were utilized for this exam: Automated exposure control, adjustment of the mA and/or kV according to patient size, and use of iterative reconstruction. One of these 3D techniques was utilized: Maximum Intensity Pixel (MIP), 3D Reconstructed Images, Volume Rendered Images, Surface Shaded Rendering. COMPARISON: 02/02/2019 CT angio neck. FINDINGS: Carotid Arteries: Common carotid arteries, internal carotid arteries, and external carotid arteries are well-opacified bilaterally. No evidence of significant stenosis, occlusion, or aneurysm. Both carotid bulbs and both proximal internal carotid arteries showed calcified atherosclerotic changes causing mild luminal attenuation. Also cavernous and clenoid segments of both internal carotid arteries showed calcified atherosclerotic changes. Vertebral Arteries: The right vertebral artery showed diffuse attenuation and occlusion of the distal part. Dominant left vertebral artery with mild atherosclerotic changes. Jugular Veins: Normal opacification of the internal and external jugular veins bilaterally. No evidence of thrombosis or compression. Subclavian Arteries: Subclavian arteries are bilaterally well-opacified. No evidence of significant stenosis, occlusion, or aneurysm. Thyroid Gland: Normal size and morphology of the thyroid gland. No masses or nodules. Soft Tissues: Normal appearance of the surrounding soft tissues of the neck. No abnormal masses or lymphadenopathy. Cervical Spine: Degenerative changes. IMPRESSION: 1. Both carotid bulbs and both proximal internal carotid arteries showed calcified atherosclerotic changes.( stable) 2. The right vertebral artery showed diffuse attenuation/hypoplasia. Stable 3. Dominant left vertebral artery with mild atherosclerotic changes.Stable Electronically signed by Estela Singh 08-11-2024 04:46 AM Chest X-Ray 08/11/24 03:09 EXAM: XR chest 1V portable CLINICAL HISTORY: stroke alert TECHNIQUE: An X-ray image of the chest is obtained in AP projection. COMPARISON: x-ray chest dated 02/02/2019 FINDINGS: Pulmonary Parenchyma: Bilateral prominent bronchovascular markings noted. Lungs are clear bilaterally. No evidence of consolidation, collapse, or focal opacities. No pulmonary nodules are identified. No evidence of pleural effusion or pleural thickening. Heart and Mediastinum: Heart size and shape are normal. No mediastinal widening or masses. No hilar or mediastinal lymphadenopathy. Bony Thorax: Bony thorax appears intact without fractures or deformities. Soft Tissues: Soft tissues overlying the chest wall are unremarkable. IMPRESSION: 1. Bilateral prominent bronchovascular markings noted. No interval changes compared to prior study. 2. No acute cardiopulmonary abnormalities are identifie (allelic regulant) Electronically signed by Estela Singh 08-11-2024 05:[address] 08/11/24 03:09 EXAM: CT head/brain wo con CLINICAL HISTORY: Neuro deficit, acute, stroke suspected TECHNIQUE: An axial non-contrast CT scan of the brain was performed from the skull base to the high parietal region. One of the following dose reduction techniques were utilized for this exam: Automated exposure control, adjustment of the mA and/or kV according to patient size, use of iterative reconstruction. COMPARISON: 03/30/[address] FINDINGS: Brain Parenchyma: Advanced periventricular ischemic changes.stable Old lacunar infarct seen at right putamen, and right periventricular white matter ( stable). Hypodeinsity seen at right frontal subcortical region, mostly due to old insult.( stable). No intracranial hemorrhage. Ventricular System: Ventricles are capacious. Subarachnoid Spaces: Capacious sulci and cisterns. No evidence of subarachnoid hemorrhage or extra-axial fluid collections. Cerebellum and Brainstem: Normal size and attenuation. Orbits: Normal appearance of the globes, optic nerves, and extraocular muscles. No evidence of orbital masses or abnormal signal. Sinuses: Clear paranasal sinuses. No evidence of sinusitis or mucosal thickening. Mastoid Air Cells: Clear mastoid air cells. No evidence of mastoiditis. Skull: Normal skull morphology. IMPRESSION: 1. Capacious CSF spaces and ventricles in keeping with patient age. 2. Advanced periventricular ischemic changes.stable 3. Old lacunar infarct seen at right putamen, and right periventricular white matter ( stable). 4. Hypodeinsity seen at right frontal subcortical region, mostly due to old insult.( stable). 5. Early changes of a stroke may not be detected on a CT scan. If strong clinical suspicion of stroke then suggest MRI with diffusion-weighted imaging. Electronically signed by Estela Singh 08-11-2024 04:06 AM Discharge Plan Visit Data Chief Complaint: Fall Stated Complaint: HIT HEAD, TRIPPED, LACERATION ON HEAD, BLOOD THINN ED Provider: Virgie Summers ED Midlevel Provider: Salma Graves. Discharge Problem: Stroke-like episode, Closed head injury, Complex laceration of scalp, Fall Patient Disposition: Admitted As Inpatient Condition: Good Prescriptions Prescriptions: No Action atorvastatin 40 mg tablet 40 mg PO DAILY clopidogrel 75 mg tablet 75 mg PO DAILY losartan 25 mg tablet 25 mg PO DAILY dorzolamide-timolol 22.3-6.8 mg/mL drops 1 drp OPB BID metformin 500 mg tablet extended release 24 hr 500 mg PO BID
[2024-08-10 23:33] LABS: Basophils # (auto) 0.04 K/uL (0.00-0.20); Basophils % (auto) 0.8 %; Eosinophils % (auto) 2.1 %; Hematocrit (blood only) 37.2 % (37.0-47.0); Hemoglobin 12.6 g/dl (12.0-16.0); Immature Granulocytes # (auto) 0.01 K/uL (0.01-0.20); Immature Granulocytes % (auto) 0.2 %; Lymphocytes # (auto) 1.97 K/uL (1.20-3.40); Lymphocytes % (auto) 41.4 %; Mean Corpuscular Hemoglobin 31.9 pg (25.0-34.0); Mean Corpuscular Hgb Conc 33.9 g/dL (32.0-36.0); Mean Corpuscular Volume 94.2 fL (80.0-100.0); Mean Platelet Volume 11.1 fL (9.4-12.4); Monocytes # (auto) 0.46 K/uL (0.11-0.59); Monocytes % (auto) 9.7 %; Neutrophils # (auto) 2.18 K/uL (1.40-6.50); Neutrophils % (auto) 45.8 %; Platelet Count 219 K/uL (130-400); RDW Coefficient of Variation 14.2 % (11.5-14.5); RDW Standard Deviation 48.9 fL (36.4-46.3); Red Blood Count 3.95 M/uL (4.20-5.40); White Blood Count 4.76 K/ul (4.8-10.8)
[2024-08-10] MEDS: ACETAMINOPHEN 1,000 MG/100 ML VIAL IV STA (23:41)
[2024-08-10 23:44] LABS: BUN Creatinine Ratio 17.9 (10-20); Potassium 3.7 mmol/L (3.5-5.1)
[2024-08-11 00:11] LABS: INR 0.9 (0.9-1.1); Partial Thromboplastin Time 26 Seconds (21-31); Prothrombin Time 10.2 Seconds (9.0-12.0)
[2024-08-11] MEDS: LIDOCAINE 1%/EPINEPHRINE 1:100,000 50 ML VIAL INFIL ONE (00:25)
--- NOTE | 2024-08-11 01:00 | CT Scan Report ---
Exam(s): CT C SPINE EXAM: CT Cervical Spine Without Intravenous Contrast CLINICAL HISTORY: Reason for exam: Trauma. TECHNIQUE: Axial computed tomography images of the cervical spine without intravenous contrast. CTDI is 23.67 mGy and DLP is 1207.06 mGy-cm. Automated exposure control was utilized for the study. A dose lowering technique was utilized adhering to the principles of ALARA. COMPARISON: Prior CT scan of the cervical spine from March 30, 2024. FINDINGS: Vertebrae: Unremarkable. No acute fracture. Discs/spinal canal/neural foramina: No acute findings. There is a critical spinal canal stenosis at C4-5, C5-6 and C6-7. Soft tissues: Unremarkable. IMPRESSION: No evidence of acute cervical spine pathology. Critical spinal canal stenosis at C4-5 through C6-7. Recommend MRI of the cervical spine to evaluate for myelopathy. Electronically signed by: France Rivera MD 08/11/24 01:00 AM
--- NOTE | 2024-08-11 01:04 | CT Scan Report ---
Exam(s): CT HEAD Without Contrast EXAM: CT Head Without Intravenous Contrast CLINICAL HISTORY: Reason for exam: Trauma. TECHNIQUE: Axial computed tomography images of the head/brain without intravenous contrast. CTDI is 38.9 mGy and DLP is 1207.06 mGy-cm. Automated exposure control was utilized for the study. A dose lowering technique was utilized adhering to the principles of ALARA. COMPARISON: Prior head CT from March 30, 2024. FINDINGS: Brain: Unremarkable. No hemorrhage. Mild nonspecific white matter changes.. No edema. Ventricles: Unremarkable. No ventriculomegaly. Bones/joints: Unremarkable. No acute fracture. Soft tissues: Unremarkable. Sinuses: Unremarkable as visualized. No acute sinusitis. Mastoid air cells: Unremarkable as visualized. No mastoid effusion. IMPRESSION: No evidence of acute intracranial pathology. Electronically signed by: France Rivera MD 08/11/24 01:03 AM
--- NOTE | 2024-08-11 01:48 | Emergency Department Note ---
ED Visit Note I was consulted by the Advanced Practice Provider. I personally made/approved the management plan and take responsibility for the patient management. I performed a substantive portion of the visit. This includes the aspects of: Personally seeing the patient -MDM .
[2024-08-11] MEDS: ONDANSETRON INJ 2 MG/ML 2 ML VIAL ONE (03:13)
[2024-08-11] MEDS: OPTIRAY 320 125ml IV ONE (03:27)
[2024-08-11 03:34] LABS: Albumin Level 4.5 gm/dl (3.4-5.0); Bilirubin Direct 0.1 mg/dl (0-0.2); Bilirubin,Total 0.5 mg/dl (0.2-1.0); Total Protein 7.3 gm/dl (6.0-8.3)
--- OUTSIDE RECORDS SUMMARY | 2024-08-11 03:54 | External Medical Summary | Summary of Care ---
Author Name Unknown Organization [facility] Address [address] [place] [address] Phone [phone] Care Team Providers Care Beam Doffer Name Role Phone Mainor Alarcon MD Primary Care Provider [phone] Reason for Visit * Reason Comments Diabetic Foot Care rfc Encounter Details Date Type Department Care Team ([facility] st Contact Info) Description 06/30/2024 11:30 AM EST Office Visit Podiatry [address] [place] [address] Loyd Deleon, [facility] [address] [place] [address] Type II diabetes mellitus with peripheral circulatory disorder (HCC)*; Hypertrophy of nail Allergies No known active allergiesdocumented as of this encounter (statuses as of 06/30/2024) Medications FISH OIL 300 MG PO CAPS once daily Active MAGNESIUM 250 MG PO TABS once daily Active GLUCOSAMINE CHONDROITIN COMPLX PO CAPS twice daily Act leonidas Multiple Vitamins-Mineral s (MULTIVITAMIN ADULTS 50+) TABS Take by mouth. 6 Active Methylcellulose (Laxative) Oral Powder Take 1 Capsule by mouth in the morning. 1 Bottle 8 Active Calcium Carb-Cholecalcif adriana 500-200 MG-UNIT TABS Take 1 Tab by mouth daily. 60 Tab 11 8 Active ONETOUCH ULTRASOFT LANCETS MISCIndications: DM type 2, not at goal (HCC) Use up to four times a day as directed 400 Box Dosing Unit 1 9 Active Blood Glucose Monitoring Suppl (ACCU-CHEK CANDACE) ROSALIA Use to check blood sugar once a day, dx: E11.9 1 Device 9 Active Accu-Chek Candace Plus In Vitro Strip (Glucose Blood)Indication s:Type 2 diabetes mellitus with hemoglobin A1c goal of less than 8.0% (HCC) USE TO TEST BLOOD SUGAR DAILY 100 Strip 3 2 Active Atorvastatin Calcium 40 MG Oral Tablet (Lipitor)Indicat ions:Dyslipidemi a, goal LDL below 70 TAKE ONE TABLET BY MOUTH EVERY AFTERNOON 90 Tablet 1 4 Active metFORMIN HCl ER 500 MG Oral Tablet Extended Release 24 Hour (Glucophage XR)Indications:T ype 2 diabetes mellitus with hemoglobin A1c goal of less than 8.0% (HCC) TAKE 1 TABLET BY MOUTH TWICE DAILY 30 minutes before morning and evening meals 180 Tablet 1 4 Active Lidocaine 5 % External Patch (Lidoderm) 4 Active Methocarbamol 500 MG Oral Tablet (Robamol) 4 Active Dorzolamide HCl-Timolol Mal 2-0.5 % Ophthalmic Solution (Cosopt Ocumeter Plus) Instill into eye. 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 Type II diabetes mellitus wi th peripheral circulatory disorder 10/30/2022 Hypertensive kidney disease with stage 3a chronic kidney disease 05/27/2020 Overview: Per CKD protocol Diabetes mellitus with stage 3 chronic kidney di sease 05/27/2020 Overview: Per CKD protocol History of ischemic multifocal posterior circula tion stroke 03/16/2019 Diplopia 02/03/2019 Ataxia 02/03/2019 Glaucoma 02/03/2019 Basilar artery stenosis/occlusion 02/03/2019 Dyslipidemia, goal LDL below 70 05/05/2016 Hypertension 10/24/2015 Vitamin D deficiency 10/24/2015 Type 2 diabetes mellitus wit h hemoglobin A1c goal of less than 7.0% 05/22/2013 Primary localized osteoarthrosis of pelvic regio n or thigh 10/06/2012 documented as of this encounter (statuses as of 06/30/2024) Resolved Problems Problem Noted Date Diagnosed Date Resolved Date Acute ischemic multifocal po sterior circulation stroke 02/03/2019 03/16/2019 Hypertensive kidney disease with chronic kidney disease stage III 09/08/2018 05/30/2020 Overview: Per CKD protocol Type 2 diabetes mellitus wit h stage 3 chronic kidney disease 09/08/2018 05/30/2020 Overview: Per CKD protocol Kidney disease, chronic, sta ge III (GFR 30-59 ml/min) 10/29/2014 02/24/2019 Benign neoplasm of colon Overview (12/20/2007): adenomatous/repeat colonoscopy in 3 yrs documented as of this encounter (statuses as of 06/30/2024) Immunizations Name Administration Dates Next Due COVID-19 mRNA, LNP-s, No Pre serve, 2-Dose Series (Scaled Agile) 08/10/2020,07/20/2020 COVID-19, MRNA-LNP, PF, 50 M CG/0.5 mL, 12 YRS AND ABOVE, IM (MODERNA-Spikevax) 06/26/2024 Pneumococcal Conjugate Vacc, 13 Valent (Prevnar) 10/09/2014 Pneumococcal Polysaccharide PPV23 (Pneumovax) 11/17/2007 Season Influenza, Quad, PF, Adjuvanted, 65+ Yrs, IM (FLUAD) 04/02/2020 Seasonal Influenza Vac., MDV , IM, 0.5 mL (Fluzone) 04/09/2014,04/22/2013,03/25/2012,03/20,03/17/2010,03/05/2009 Seasonal Influenza, High Dos e, Trivalent, PF, IM (Fluzone HD) 03/15/2024 Seasonal Influenza, PF, 6 M & above, IM , (FluLaval or Fluzone) 03/20/2019,03/10/2018,06/08/2017 Seasonal Influenza, Quadriva lent Hd (Fluzone Hd) 06/26/2024,03/15/2023,04/15/2022,05/01 Seasonal Influenza, Quadriva lent, No Preserve, IM 05/05/2016,04/18/2015 TD, Preservative Free 10/01/2008 TDAP (age 10 and older)(Boostrix) 11/03/2023, Varicella Zoster Vaccine (Adult) 10/21/2010 Zoster Vaccine Recombinant (Shingrix) 05/26/2018 ,11/25/2017 documented as of this encounter Social History Tobacco Use Types Packs/Day Years Used Date Smoking Tobacco: Former Cigarettes Q uit: 11/12/1978 Passive Smoke Exposure: Past Smokeless Tobacco: Never Comments:5 pack year hx, zaynab t 40 years ago Alcohol Use Standard Drinks/Week Comments Yes 0 (1 standard drink = 0.6 oz pur e alcohol) rare PHQ-2 Answer Date Recorded PHQ Adult Total Score 0 06/13/2024 Hunger Vital Sign Answer Date Recorded Within the past 12 months, y ou worried that your food would run out before you got the money to buy more. Never true 06/13/20 24 Within the past 12 months, t he food you bought just didn't last and you didn't have money to get more. Never true 06/13/2024 Childcare Answer Date Recorded Do you feel overwhelmed with taking care of a child, family member or friend? No 06/13/2024 Does your family need help f inding childcare? (Household - for ages 0-17 years) Not on file 06/13/2024 Clothing Answer Date Recorded Have you been unable to get clothing when it was really needed? No 06/13/2024 Is your family able to get c lothes or diapers when needed? (Household - for ages 0-17 years) Not on file 06/13/2024 Personal Safety Answer Date Recorded Do you feel unsafe or have concerns for your saf ety? No 06/13/2024 Do you have concerns for you r family's safety? (Household - for ages 0-17 years) Not on file 06/13/2024 Utilities Answer Date Recorded Do you have trouble paying y our heating, water, or electric bill? No 06/13/2024 Is your family able to pay t he heat, water, or electric bill? (Household - for ages 0-17 years) Not on file 06/13/2024 Does your family have access to good internet? (Household - for ages 0-17 years) Not on file 06/13/2024 Employment Status Answer Date Recorded Are you unemployed or without regular income? No 06/13/2024 Does the household have a re lar source of income? (Household - for ages 0-17 years) Not on file 06/13/2024 Social Connections Answer Date Recorded How often do you feel lonely or isolated from th ose around you? Never 06/13/2024 Financial Resource Strain Answer Date R ecorded Do you have any trouble payi ng for your medications, or do you think you might in the future? No 06/13/2024 Does your family have troubl e paying for medicine? (Household - for ages 0-17 years) Not on file 06/13/2024 Transportation Needs Answer Date Record ed Do you have trouble getting a ride to medical visits or work? (Adult - for ages 18 years and over) Not on file 06/13/2024 Does your family have a hard time getting a ride to doctors visits? (Household - for ages 0-17 years) Not on file 06/13/2024 Has lack of transportation k ept you from medical appointments, meetings, work, or from getting things needed for daily living? Check all that apply. No 06/13/2024 Do you (or your family) have trouble finding or paying for a ride (transportation)? (Household - for ages 0-17 years) Not on file 06/13/2024 Housing Stability Answer Date Recorded Do you currently live in a s helter or have no steady place to sleep at night? No 06/13/2024 Do you think you are at risk of becoming homeless? (Adult - for ages 18 years and over) Not on file 06/13/2024 Does your family worry about paying for your home or becoming homeless? (Household - for ages 0-17 years) Not on file 1 Are you homeless or worried that you might be in the future? No 06/13/2024 Are you (or your family) katherine eless or worried that you might be in the future? (Household - for ages 0-17 years) Not on file Food Insecurity Answer Date Recorded Do you need food for this week? No 06/13/2024 Are you able to get enough f ood for your family? (Household - for ages 0-17 years) Not on file 06/13/2024 Does your family need food t his week? (Household - for ages 0-17 years) Not on file 06/13/2024 Do you always have enough fo od for your family? (Household - for ages 0-17 years) Not on file 06/13/2024 Comments No Sex and Gender Information Value Date Recorded Sex Assigned at Female 09/13/2018 7:28 AM EDT Legal Sex Female 6:02 AM EST Gender Identity Female 09/13/2018 7:28 AM EDT Sexual Orientation Straight 09/13/2018 7: 28 AM EDT documented as of this encounter Functional Status * Are you deaf or do you have serious difficulty hearing? Answer Date of Assessment Author No 02/03/2019 12:00 AM Palmira Batista RN * Are you blind or do you have serious difficulty seeing, even when wearing glasses? Answer Date of Assessment Author No 02/03/2019 12:00 AM Palmira Batista RN * Do you have serious difficulty walking or climbing stairs? (5 years old or older) Answer Date of Assessment Author No 02/03/2019 12:00 AM Palmira Batista RN * Do you have difficulty dressing or bathing? (5 years old or older) Answer Date of Assessment Author No 02/03/2019 12:00 AM Palmira Batista RN * Because of a physical, mental, or emotional condition, do you have difficulty doing errands alone such as visiting a doctors office or shopping? (15 years old or older) Answer Date of Assessment Author No 02/03/2019 12:00 AM Palmira Batista RN documented as of this encounter Mental Status * Because of a physical, mental, or emotional condition, do you have serious difficulty concentrating, remembering, or making decisions? (5 years old or older) Answer Entry Date Author No 02/03/2019 12:00 AM Palmira Batista RN documented in this encounter Progress Notes * Loyd Deleon, DPM - 06/30/2024 11:49 AM EST Subjective: Patient presents in office today for elongated nails HISTORY Past Medical History: Diagnosis Date Benign neoplasm of colon adenomatous/repeat colonoscopy in 3 yrs Benign neoplasm of colon 04/01/2011 polyps, diverticulosis, path shows adenomatous tissue in one of the polyps repeat in 5 yrs DM type 2, goal A1C below 8.0 05/22/2013 DM type 2, not at goal (HCC) 10/21/2007 HTN, goal below 140/90 10/21/2007 NO SIGNIFICANT MED HX Osteoarthritis of hip Other specified glaucoma Past Surgical History: Procedure Laterality Date CAROTID (INTERNAL) ARTERY CATHETHER PLACEMENT Bilateral 02/03/2019 CATHETER PLACEMENT INTERNAL CAROTID ARTERY [place] Cab[place] [facility] [place] W/ LESION REMOVAL, SNARE 12/15/07 x 3 removed/adenomatous/repeat in 3 yrs COLONOSCOPY W/ LESION REMOVAL, SNARE 04/01/11 polyps, diverticulosis, path shows adenomatous tissue in one of the polyps repeat in 5 yrs LIGATE/CUT OVIDUCT(S) Tubal Ligation MISCELLANEOUS ORDER ([facility] ONLY) 08/23 left hip replacement TREAT ECTOPIC , TUBE/OVARY Ectopic Preg,Rmv Tube/Ovary VERTEBRAL ARTERY CATHETER PLACEMENT Bilateral 02/03/2019 CATHETER PLACEMENT VERTEBRAL ARTERY, [place] Cabral[place] [facility] [place] family history on file. Social History Socioeconomic History Marital status: Spouse name: Not on file Number of children: 5 Years of education: Not on file Highest education level: Not on file Occupational History Not on file Tobacco Use Smoking status: Former Current packs/day: 0.00 Types: Cigarettes Quit date: 11/12/1978 Years since quittin.6 Passive exposure: Past Smokeless tobacco: Never Tobacco comments: 5 pack year hx, quit 40 years ago Vaping Use Vaping status: Never Used Substance and Sexual Activity Alcohol use: Yes Comment: rare Drug use: No Sexual activity: Not on file Other Topics Concern Not on file Social History Narrative Working out: Run/ walk 3-5 days per week plus equipment at [facility] 30 minutes 3- 5 days Social Needs Financial Resource Strain: Low Risk (06/13/2024) Financial Resource Strain Do you have any trouble paying for your medications, or do you think you might in the future? (Adult - for ages 18 years and over): No Does your family have trouble paying for medicine? (Household - for ages 0-17 years): Not on file Food Insecurity: No Food Insecurity (06/13/2024) Food Insecurity Do you need food for this week? (Adult - for ages 18 years and over): No Are you able to get enough food for your family? (Household - for ages 0-17 years): Not on file Does your family need food this week? (Household - for ages 0-17 years): Not on file Do you always have enough food for your family? (Household - for ages 0-17 years): Not on file Transportation Needs: No Transportation Needs (06/13/2024) Transportation Needs Do you have trouble getting a ride to medical visits or work? (Adult - for ages 18 years and over):Not on file Does your family have a hard time getting a ride to doctors visits? (Household - for ages 0-17 years): Not on file Has lack of transportation kept you from medical appointments, meetings, work, or from getting things needed for daily living? Check all that apply. (Adult - for ages 18 years and over): No Do you (or your family) have trouble finding or paying for a ride (transportation)? (Household - for ages 0-17 years): Not on file Social Connections: Socially Integrated (06/13/2024) Social Connections How often do you feel lonely or isolated from those around you? (Adult - for ages 18 years and over): Never Housing Stability: Low Risk (06/13/2024) Housing Stability Do you currently live in a jail or have no steady place to sleep at night? (Adult - for ages 18 years and over): No Do you think you are at risk of becoming homeless? (Adult - for ages 18 years and over): Not on file Does your family worry about paying for your home or becoming homeless? (Household - for ages 0-17 years): Not on file Are you homeless or worried that you might be in the future? (Adult - for ages 18 years and over): No Are you (or your family) homeless or worried that you might be in the future? (Household - for ages0-17 years): Not on file Current Outpatient Medications Medication Sig Dispense Refill FISH OIL 300 MG PO CAPS once daily MAGNESIUM 250 MG PO TABS once daily GLUCOSAMINE CHONDROITIN COMPLX PO CAPS twice daily Multiple Vitamins-Minerals (MULTIVITAMIN ADULTS 50+) TABS Take by mouth. Methylcellulose (Laxative) Oral Powder Take 1 Capsule by mouth in the morning. 1 Bottle 0 Calcium Carb-Cholecalciferol 500-200 MG-UNIT TABS Take 1 Tab by mouth daily. 60 Tab 11 ONETOUCH ULTRASOFT LANCETS MISC Use up to four times a day as directed 400 Box Dosing Unit 1 Blood Glucose Monitoring Suppl (ACCU-CHEK CANDACE) ROSALIA Use to check blood sugar once a day, dx: E11.9 1 Device 0 Accu-Chek Candace Plus In Vitro Strip (Glucose Blood) USE TO TEST BLOOD SUGAR DAILY 100 Strip 3 Atorvastatin Calcium 40 MG Oral Tablet (Lipitor) TAKE ONE TABLET BY MOUTH EVERY AFTERNOON 90 Tablet1 metFORMIN HCl ER 500 MG Oral Tablet Extended Release 24 Hour (Glucophage XR) TAKE 1 TABLET BY MOUTHTWICE DAILY 30 minutes before morning and evening meals 180 Tablet 1 Lidocaine 5 % External Patch (Lidoderm) Methocarbamol 500 MG Oral Tablet (Robamol) Dorzolamide HCl-Timolol Mal 2-0.5 % Ophthalmic Solution (Cosopt Ocumeter Plus) Instill into eye. Losartan Potassium 25 MG Oral Tablet (Cozaar) TAKE 1 TABLET BY MOUTH EVERY MORNING 90 Tablet 1 Clopidogrel Bisulfate 75 MG Oral Tablet (pLAVix) TAKE 1 TABLET BY MOUTH EVERY MORNING 90 Tablet 1 No current facility-administered medications for this visit. ROS EXAM: CONSTITUTIONAL: No change in weight, No weakness, No fatigue and No fevers, sweats, or chills EXTREMITIES: No pain, redness or swelling on the joints SKIN/INTEGUMENTARY: No edema, No rash and No itching NEUROLOGIC: Normal balance, No headaches, No seizures and No weakness Objective: Vascular examination: DP 2/4 bilateral PT 1/4 right 0/4 left SPVFT 3sec. No digital hair, thin atrophic skin Dermatological examination: nails appear elongated and hypertrophic Orthopedic examination: unremarkable Neurological examination: Epicritic sensation diminished Assessment: The primary encounter diagnosis was Type II diabetes mellitus with peripheral circulatory disorder (HCC). A diagnosis of Hypertrophy of nail was also pertinent to this visit. Plan: 1. Trimmed dystrophic nails documented in this encounter Nursing Notes * Marya Bautista CMA - 06/30/2024 11:25 AM EST Diabetic rfc documented in this encounter Plan of Treatment Upcoming Encounters Date Type Department Care Team ([facility] st Contact Info) Description 08/14/2024 12:20 PM EST [facility] [address] [place] [address] Mainor Alarcon MD [address] [place] [id number] 10/06/2024 10:30 AM EDT Office Visit Podiatry [address] [place] [phone] Loyd Deleon DPM [address] [place] [id number] 12/11/2024 9:40 AM EDT Office Visit [facility] [place] Dawn Abreu [address] [place] [phone] Mainor Alarcon MD [address] [facility] [place] [id number] Scheduled Orders Name Type Priority Associated Diagnoses Orde r Schedule TRIM DYSTROPHIC NAILS, ANY # Procedures Routine Type II diabetes mellitus with peripheral circulatory disorder (HCC) Hypertrophy of nail Ordered: 06/30/2024 Health Maintenance Due Date Last Done Comments Adult Wellness Visit 2003 Colonoscopy 04/01/2016 04/01/2011, 12/15/2007 HbA1c 04/28/2024 10/27/2023, 04/15, 10/30/2022, Additional history exists Albumin/Creatinine Ratio 10/26/2024 024, 10/29/2021, 04/26/2020, Additional history exists B-12 10/26/2024 10/27/2023, 10/12, 10/29/2021, Additional history exists CKD HGB USE SMARTSET 81087 10/26/202410/26, 10/30/2022, 10/22/2021, Additional history exists CKD PHOS USE SMARTSET 55259 10/26/202410/12, 05/01/2022, 04/26/2020, Additional history exists Diabetic Eye Exam 04/03/2025 07/28/2021, , 06/27/2014, Additional history exists Postponed from 07/28/2022 (Patient Declined After Education) Diabetic Foot Exam 04/03/2025 03/15/2023, 1 07/01/2020, 04/26/2020, Additional history exists Postponed from 03/15/2024 (Patient Declined After Education) Depression Screening 06/13/2025 06/13/2024 DXA Scan 12/18/2027 12/17/2020, 07/, 12/17/2008, Additional history exists DTap/Tdap Vaccines (3 - Td or Tdap) 11/02/2033 11/03/2023, 10/06/2013, 10/01/2008, Additional history exists RETIRED - COLONOSCOPY-EVERY 5 YRS AGES 18-100 Discontinued 04/01/2011, 12/15/2007 Pneumococcal Vaccine: 50+ Years Completed 10/09/2014, 11/17/2007 Zoster Vaccines Completed 05/26/2018, 11/12, 10/21/2010 COVID-19 Vaccine Completed 06/26/2024, , 10/01/2021, Additional history exists Influenza Vaccine (FLU shot) Completed 06/26/2024, 03/15/2024, 03/15/2023, Additional history exists HPV (Gardasil) Vaccine Aged Out No lo nger eligible based on patient's age to complete this topic Hepatitis B Vaccine Aged Out No longe r eligible based on patient's age to complete this topic MENINGOCOCCAL (MENACTRA/MENVEO) Aged Out No longer eligible based on patient's age to complete this topic documented as of this encounter Medical Devices Not on filedocumented as of this encounter Visit Diagnoses Diagnosis Type II diabetes mellitus with peripheral circulatory disorder (HCC)- Primary Type II or unspecified type diabetes mellitus with peripheral circulatory disorders, not stated as uncontrolled Hypertrophy of nail Other specified disease of nail documented in this encounter Advance Directives * Full Code (Latest Code Status on File) Date Activated Date Inactivated Comments 02/03/2019 12:43 AM 02/04/2019 6:07 PM This order reflects the patients wishes and were consensually agreed upon. Question Answer Comments Discussion of Advance Directives occurred with: Patient Care Teams Beam Doffer Relationship Specialty Start Date End Date Mainor Alarcon MD PCP - General 05/23/04 documented as of this encounter
--- OUTSIDE RECORDS SUMMARY | 2024-08-11 03:54 | External Medical Summary | Summary of Care ---
Author Name Unknown Organization [facility] Address [address] [place] [address] Phone [phone] Care Team Providers Care Dredge Or Barge Shore Hand Name Role Phone Sterling Alarcon MD Primary Care Provider [phone] Reason for Visit * Reason Onset Date Comments Advice 07/03/2024 Encounter Details Date Type Department Care Team ([facility] st Contact Info) Description 07/03/2024 Telephone [facility] [address] [place] [address] Sterling Alarcon MD [address] [place] [address] Advice Allergies No known active allergiesdocumented as of this encounter (statuses as of 07/03/2024) Medications FISH OIL 300 MG PO CAPS once daily Active MAGNESIUM 250 MG PO TABS once daily Active GLUCOSAMINE CHONDROITIN COMPLX PO CAPS twice daily Act leonidas Multiple Vitamins-Minera ls (MULTIVITAMIN ADULTS 50+) TABS Take by mouth. 6 Active Methylcellulose (Laxative) Oral Powder Take 1 Capsule by mouth in the morning. 1 Bottle 8 Active Calcium Carb-Cholecalci ferol 500-200 MG-UNIT TABS Take 1 Tab by mouth daily. 60 Tab 11 8 Active ONETOUCH ULTRASOFT LANCETS MISCIndications :DM type 2, not at goal (HCC) Use up to four times a day as directed 400 Box Dosing Unit 1 9 Active Blood Glucose Monitoring Suppl (ACCU-CHEK CANDACE) ROSALIA Use to check blood sugar once a day, dx: E11.9 1 Device 9 Active Accu-Chek Candace Plus In Vitro Strip (Glucose Blood)Indicatio ns:Type 2 diabetes mellitus with hemoglobin A1c goal of less than 8.0% (HCC) USE TO TEST BLOOD SUGAR DAILY 100 Strip 3 2 Active Atorvastatin Calcium 40 MG Oral Tablet (Lipitor)Indica tions:Dyslipide farheen, goal LDL below 70 TAKE ONE TABLET BY MOUTH EVERY AFTERNOON 90 Tablet 1 4 Active metFORMIN HCl ER 500 MG Oral Tablet Extended Release 24 Hour (Glucophage XR)Indications: Type 2 diabetes mellitus with hemoglobin A1c goal [...] Active Losartan Potassium 25 MG Oral Tablet (Cozaar)Indicat ions:HTN, goal below 150/90 TAKE 1 TABLET BY MOUTH EVERY MORNING 90 Tablet 1 4 Active Clopidogrel Bisulfate 75 MG Oral Tablet (pLAVix)Indicat ions:History of ischemic multifocal posterior circulation stroke TAKE 1 TABLET BY MOUTH EVERY MORNING 90 Tablet 1 4 Active Nirmatrelvir&Ri tonavir 150/100 10 x 150 MG & 10 x 100MG Oral Tablet Therapy Pack (Paxlovid (150/100))Indic ations:COVID-19 virus infection Take 1 pink tablet of Nirmatrelvir and 1 white tablet of Ritonavir two times a day by mouth. 20 Tablet 5 Active documented as of this encounter (statuses as of 07/03/2024) Active Problems Problem Noted Date Diagnosed Date [...] as of this encounter (statuses as of 07/03/2024) Resolved Problems Problem Noted Date Diagnosed Date [...] as of this encounter (statuses as of 07/03/2024) Immunizations Name Administration Dates Next Due COVID-19 mRNA, LNP-s, No Pre serve, 2-Dose Series ([employer]) 08/10/2020,07/20/2020 COVID-19, MRNA-LNP, PF, 50 M CG/0.5 mL, 12 YRS AND ABOVE, IM (MODERNA-Spikevax) 06/26/2024 HEP A - Hepatitis A (Adult > 18 yrs) 05/23/2004 Hepatitis A Vaccine 12/11/1998 06/12/1999 IPV - Polio Virus Vaccine (Inact) 12/11/1998 Pneumococcal Conjugate Vacc, 13 Valent (Prevnar) 10/09/2014 Pneumococcal Polysaccharide PPV23 (Pneumovax) 11/17/2007 Season Influenza, Quad, PF, Adjuvanted, 65+ Yrs, IM (FLUAD) 04/02/2020 Seasonal Influenza Vac., MDV , IM, 0.5 mL (Fluzone) 04/09/2014,04/22/2013,03/25/2012,12/2010,03/17/2010,03/05/2009 Seasonal Influenza, High Dos e, Trivalent, PF, IM (Fluzone HD) 03/15/2024 Seasonal Influenza, PF, 6 M & above, IM , (FluLaval or Fluzone) 03/20/2019,03/10/2018,06/08/2017 Seasonal Influenza, Quadriva lent Hd (Fluzone Hd) 06/26/2024,03/15/2023,04/15/2022,04/14 Seasonal Influenza, Quadriva lent, No Preserve, IM 05/05/2016,04/18/2015 TD - Tetanus/Diptheria (ADULT) 05/23/2004 TD, Preservative Free 10/01/2008 TDAP (age 10 and older)(Boostrix) 11/03/2023, Typhoid Vaccine Oral (Vivotif) 05/23/2004 Varicella Zoster Vaccine (Adult) 10/21/2010 Zoster Vaccine [...] of Assessment Author No 02/03/2019 12:00 AM EDPalmira Sprague RN * Because of a physical, mental, or emotional condition, do you have difficulty doing errands alone such as visiting a doctors office or shopping? (15 years old or older) Answer Date of Assessment Author No 02/03/2019 12:00 AM EDPalmira Sprague RN documented as of this encounter Mental Status * Because of a physical, mental, or emotional condition, do you have serious difficulty concentrating, remembering, or making decisions? (5 years old or older) Answer Entry Date Author No 02/03/2019 12:00 AM Palmira Batista RN documented in this encounter Miscellaneous Notes * Telephone Encounter - Chica Andres LPN - 07/03/2024 3:57 PM EST Called and spoke with patient and she is aware. * Addendum Note - Sterling Alarcon MD - 07/03/2024 3:49 PM ESTAddended by: STERLING ALARCON on: 07/03/2024 03:49 PM Modules accepted: Orders * Telephone Encounter - Sterling Alarcon MD - 07/03/2024 3:46 PM EST Will treat with Paxlovid (renal dose as latest GFR =59) Hold Atorvastatin for 7 days . Please notify Pt: she needs to not take Atorvastatin for 7 days. * Telephone Encounter - Selene Stanford LPN - 07/03/2024 3:33 PM EST Patient is asking for Paxlovid due to symptoms and recent Covid diagnosis. Please advise. Thank you. I called patient to verify that she tested at home and she states she took an at home Covid test that was Positive. * Telephone Encounter - Shelli Mcginnis OSA - 07/03/2024 2:50 PM EST Pts calling letting PCP know the patient has symptoms of COVID and would like the paxlovid. Pts was in the ER over the weekend and does have a DX of COVID symptoms are the same. Asking for paxlovid documented in this encounter Plan of Treatment Upcoming Encounters Date Type Department Care Team ([facility] st Contact Info) Description 08/14/2024 12:20 PM EST [facility] [address] [phone] Sterling Alarcon MD [address] [place] [address] 10/06/2024 10:30 AM EDT Office Visit Podiatry [address] [place] [phone] Loyd Deleon, [place] [address] [place] [address] 12/11/2024 9:40 AM EDT [facility] [address] [phone] Sterling Alarcon MD [address] [address] Health Maintenance Due Date Last Done Comments Adult Wellness Visit 2003 Colonoscopy 04/01/2016 04/01/2011, 12/15/2007 HbA1c 04/28/2024 10/27/2023, 04/15, 10/30/2022, Additional history exists Albumin/Creatinine Ratio 10/26/2024 024, 10/29/2021, 04/26/2020, Additional history exists B-12 10/26/2024 10/27/2023, 10/12, 10/29/2021, Additional history exists CKD HGB USE SMARTSET 83803 10/26/202410/26, 10/30/2022, 10/22/2021, Additional history exists CKD PHOS USE SMARTSET 31453 10/26/202410/12, 05/01/2022, 04/26/2020, Additional history exists Diabetic Eye Exam 04/03/2025 07/28/2021, , 06/27/2014, Additional history exists Postponed from 07/28/2022 (Patient Declined After Education) Diabetic Foot Exam 04/03/2025 03/15/2023, 1 07/01/2020, 04/26/2020, Additional history exists Postponed from 03/15/2024 (Patient Declined After Education) Depression Screening 06/13/2025 06/13/2024 DXA Scan 12/18/2027 12/17/2020, 12/14, 12/17/2008, Additional history exists DTap/Tdap Vaccines (3 [...] as of this encounter Visit Diagnoses Diagnosis COVID-19 virus infection- Primary documented in this encounter Advance Directives * Full Code (Latest Code Status on File) Date Activated Date Inactivated Comments 02/03/2019 12:43 AM 02/04/2019 6:07 PM This order reflects the patients wishes and were consensually agreed upon. Question Answer Comments Discussion of Advance Directives occurred with: Patient Care Teams Dredge Or Barge Shore Hand Relationship Specialty Start Date End Date Sterling Alarcon MD PCP - General 05/23/04 documented as of this encounter
--- OUTSIDE RECORDS SUMMARY | 2024-08-11 03:54 | External Medical Summary | Summary of Care ---
Author Name Unknown Organization [facility] Address [address] [place] [address] Phone [phone] Care Team Providers Care Laboratory Clerk Name Role Phone Mainor Alarcon MD Primary Care Provider [phone] Encounter Details Date Type Department Care Team (Late st Contact Info) Description 06/15/2024 Orders Only PATIENT PORTAL DO NOT DELETE THIS DEPT USED BY RADHA [place] [id number] Allergies No known active allergiesdocumented as of this encounter (statuses as of 06/15/2024) Medications FISH OIL 300 MG PO CAPS once daily Active MAGNESIUM 250 MG PO TABS once daily Active GLUCOSAMINE CHONDROITIN COMPLX PO CAPS twice daily Act leonidas Multiple Vitamins-Mineral s (MULTIVITAMIN ADULTS 50+) TABS Take by mouth. 6 Active Methylcellulose (Laxative) Oral Powder Take 1 Capsule by mouth in the morning. 1 Bottle 8 Active Calcium Carb-Cholecalcif adraina 500-200 MG-UNIT TABS Take 1 Tab by [...] as of this encounter (statuses as of 06/15/2024) Active Problems Problem Noted Date Diagnosed Date [...] as of this encounter (statuses as of 06/15/2024) Resolved Problems Problem Noted Date Diagnosed Date [...] as of this encounter (statuses as of 06/15/2024) Immunizations Name Administration Dates Next Due COVID-19 mRNA, LNP-s, No Pre serve, 2-Dose Series ([employer]row[employer]) 08/10/2020,07/20/2020 Pneumococcal Conjugate Vacc, 13 Valent (Prevnar) 10/09/2014 Pneumococcal Polysaccharide PPV23 (Pneumovax) 11/17/2007 Season Influenza, Quad, PF, Adjuvanted, 65+ Yrs, IM (FLUAD) 04/02/2020 Seasonal Influenza Vac., MDV , IM, 0.5 mL (Fluzone) 04/09/2014,04/22/2013,03/25/2012,03/20,03/17/2010,03/05/2009 Seasonal Influenza, High Dos e, Trivalent, PF, IM (Fluzone HD) 03/15/2024 Seasonal Influenza, PF, 6 M & above, IM , (FluLaval or Fluzone) 03/20/2019,03/10/2018,06/08/2017 Seasonal Influenza, Quadriva lent Hd (Fluzone Hd) 03/15/2023,04/15/2022,05/01/2021 Seasonal Influenza, Quadriva lent, No Preserve, IM [...] 06/13/2024 Does the household have a re gular source of income? (Household - for ages [...] Palmira Batista RN documented in this encounter Plan of Treatment Upcoming Encounters Date Type Department Care Team ([facility] st Contact Info) Description 06/30/2024 11:30 AM EST Office Visit Podiatry [address] [place] [address] Loyd Deleon, [place]LIN[place] [address] [place], [place] [phone] 08/14/2024 12:20 PM EST [facility] [phone] Mainor Alarcon MD [address] [place] [address] 12/11/2024 9:40 AM EDT [facility] [place] [address] Mainor Alarcon MD [address] [address] Health Maintenance Due Date Last Done Comments Adult Wellness Visit 2003 Colonoscopy 04/01/2016 04/01/2011, 12/15/2007 COVID-19 Vaccine ( season) 2024 03/31/2022, 10/01/2021, 03/31/2021, Additional history exists HbA1c 04/28/2024 10/27/2023, 04/15, 10/30/2022, Additional history exists Albumin/Creatinine Ratio 10/26/2024 024, 10/29/2021, 04/26/2020, Additional history exists B-12 10/26/2024 10/27/2023, 10/12, 10/29/2021, Additional history exists CKD HGB USE SMARTSET 50165 10/26/202410/26, 10/30/2022, 10/22/2021, Additional history exists CKD PHOS USE SMARTSET 74612 10/26/202410/12, 05/01/2022, 04/26/2020, Additional history exists Diabetic [...] 11/17/2007 Zoster Vaccines Completed 05/26/2018, 11/12, 10/21/2010 Influenza Vaccine (FLU shot) Completed 03/15/2024, 03/15/2023, 04/15/2022, Additional history exists HPV (Gardasil) Vaccine Aged [...] Not on filedocumented as of this encounter Advance Directives * Full Code (Latest Code Status on File) Date Activated Date Inactivated Comments 02/03/2019 12:43 AM 02/04/2019 6:07 PM This order reflects the patients wishes and were consensually agreed upon. Question Answer Comments Discussion of Advance Directives occurred with: Patient Care Teams Laboratory Clerk Relationship Specialty Start Date End Date Mainor Alarcon MD PCP - General 05/23/04 documented as of this encounter
--- OUTSIDE RECORDS SUMMARY | 2024-08-11 03:54 | External Medical Summary | Summary of Care ---
Author Name Unknown Organization [facility] Address [address] [place] [address] Phone [phone] Care Team Providers Care Paper Baling Machine Operator Name Role Phone Sterling Alarcon MD Primary Care Provider [phone] Reason for Visit * Reason Onset Date Comments Advice 07/03/2024 Encounter Details Date Type Department Care Team ([facility] st Contact Info) Description 07/03/2024 Telephone [facility] [address] [place] [address] Sterling Alarcon MD [address] [place] [address] Advice Allergies No known active [...] mRNA, LNP-s, No Pre serve, 2-Dose Series ([employer]) 08/10/2020,07/20/2020 COVID-19, MRNA-LNP, PF, 50 M CG/0.5 [...] of Assessment Author No 02/03/2019 12:00 AM EDPalmria Sprague RN documented as of this encounter Mental Status * Because of a physical, mental, or emotional condition, do you have serious difficulty concentrating, remembering, or making decisions? (5 years old or older) Answer Entry Date Author No 02/03/2019 12:00 AM Palmira Batista RN documented in this encounter Miscellaneous Notes * Addendum Note - Sterling Alarcon MD [...] Description 08/14/2024 12:20 PM EST Office Visit [facility] [place] Parishethel Abreu [address] [phone] Sterling Alarcon MD [address] [place] [address] 10/06/2024 10:30 AM EDT Office Visit Podiatry [address] [place] [address] Loyd Deleon, [facility] [address] [place] [address] 12/11/2024 9:40 AM EDT Office Visit [facility] Jose Lugoethel Abreu [address] [phone] Sterling Alarcon MD [address] [facility] [address] [place] [id number] Health Maintenance Due Date Last Done Comments Adult Wellness Visit 2003 Colonoscopy 04/01/2016 04/01/2011, 12/15/2007 HbA1c 04/28/2024 10/27/2023, 04/15, 10/30/2022, Additional history exists Albumin/Creatinine Ratio 10/26/2024 024, 10/29/2021, 04/26/2020, Additional history exists B-12 10/26/2024 10/27/2023, 10/12, 10/29/2021, Additional history exists CKD HGB USE SMARTSET 28343 10/26/202410/26, 10/30/2022, 10/22/2021, Additional history exists CKD PHOS USE SMARTSET 24394 10/26/2024 0510/2023, 05/01/2022, 04/26/2020, Additional history exists Diabetic Eye Exam 04/03/2025 07/28/2021, , 06/27/2014, Additional history exists Postponed from 07/28/2022 (Patient Declined After Education) Diabetic Foot Exam 04/03/2025 03/15/2023, 07/01/2020, 04/26/2020, Additional history exists Postponed from [...] Advance Directives occurred with: Patient Care Teams Paper Baling Machine Operator Relationship Specialty Start Date End Date Sterling Alarcon MD PCP - General 05/23/04 documented as of this encounter
--- OUTSIDE RECORDS SUMMARY | 2024-08-11 03:54 | External Medical Summary | Summary of Care ---
Author Name Unknown Organization [facility] Address [address] [place] [address] Phone [phone] Care Team Providers Care [place] [employer] Group Leader Name Role Phone Sterling Alarcon MD Primary Care Provider [phone] Reason for Visit * Reason Onset Date Comments Advice 07/03/2024 Encounter Details Date Type Department Care Team ([facility] st Contact Info) Description 07/03/2024 Telephone [facility] [address] [place] [address] Sterling Alarcon MD [address] [place] [address] Advice Allergies No known active [...] mRNA, LNP-s, No Pre serve, 2-Dose Series ([employer]) 08/10/2020,07/20/2020 COVID-19, MRNA-LNP, PF, 50 M CG/0.5 [...] Upcoming Encounters Date Type Department Care Team ([facility] st Contact Info) Description 08/14/2024 12:20 PM EST Office Visit [facility] [place] Parishethel Abreu [address] [phone] Sterling Alarcon MD [address] [address] 10/06/2024 10:30 AM EDT Office Visit Podiatry [address] [place] [address] Loyd Deleon, [facility] [address] [place] [address] 12/11/2024 9:40 AM EDT Office Visit [facility] Jose Lugoethel Abreu [address] [phone] Sterlnig Alarcon MD [address] [facility] [address] [place] [phone] Health Maintenance Due Date Last Done Comments Adult Wellness Visit 2003 Colonoscopy 04/01/2016 04/01/2011, 12/15/2007 HbA1c 04/28/2024 10/27/2023, 04/15, 10/30/2022, Additional history exists Albumin/Creatinine Ratio 10/26/2024 024, 10/29/2021, 04/26/2020, Additional history exists B-12 10/26/2024 10/27/2023, 10/12, 10/29/2021, Additional history exists CKD HGB USE SMARTSET 56632 10/26/202410/26, 10/30/2022, 10/22/2021, Additional history exists CKD PHOS USE SMARTSET 51196 10/26/2024 0510/2023, 05/01/2022, 04/26/2020, Additional history exists [...] Advance Directives occurred with: Patient Care Teams [place] [employer] Group Leader Relationship Specialty Start Date End Date Sterling Alarcon MD PCP - General 05/23/04 documented as of this encounter
--- OUTSIDE RECORDS SUMMARY | 2024-08-11 03:55 | External Medical Summary | Summary of Care ---
Author Name Unknown Organization [facility] Address [address] [place] [address] Phone [phone] Care Team Providers Care Lead Mechanical Engineer Name Role Phone Mainor Alarcon MD Primary Care Provider [phone] Reason for Referral * Evaluate & Treat - Unlimited Visits (Within 30 days (routine)) - Authorized Specialty Diagnoses / Procedures Referred By Saba t Referred To Contact Orthopaedic Surgery / Orthopedics Diagnoses Osteoarthritis of both knees, unspecified osteoarthritis type Mainor Alarcon MD [address] [place] [address] Phone: tel: fax: Estrada Myers MD [address] [address] Phone: tel: fax: Referral ID Status Reason Start Date Expiration Date Visits Requested Visits Authorized [id number] Authorized Specialty Services Required [phone] Question Answer Referral Priority Within 30 days (routine) Where should this appointment be scheduled? [facility] What body part is the patient being seen for? Thigh/Knee What condition is the patient being seen for? Arthritis including related infection Reason for Visit * Reason Comments Follow Up Pt here today for 6 month follow up Encounter Details Date Type Department Care Team ([facility] Contact Info) Description 06/13/2024 7:40 AM EST Office Visit [facility] [place] [address] [facility] [place] [phone] Mainor Alarcon MD [address] [place] [id number] Risk and functional assessment*; Screening for depression; Type 2 diabetes mellitus with hemoglobin A1c goal of less than 7.0% (HCC); Osteoarthritis of both knees, unspecified osteoarthritis type; Actinic keratosis Allergies No known active allergiesdocumented as of this encounter (statuses as of 06/13/2024) Medications FISH OIL 300 MG PO CAPS [...] as of this encounter (statuses as of 06/13/2024) Active Problems Problem Noted Date Diagnosed Date [...] as of this encounter (statuses as of 06/13/2024) Resolved Problems Problem Noted Date Diagnosed Date [...] as of this encounter (statuses as of 06/13/2024) Immunizations Name Administration Dates Next Due COVID-19 mRNA, LNP-s, No Pre serve, 2-Dose Series (Pfizer) 08/10/2020,07/20/2020 Pneumococcal Conjugate Vacc, 13 Valent (Prevnar) [...] Passive Smoke Exposure: Past Smokeless Tobacco: Never Tobacco Cessation:Counseling Given: Not Answered Comments:5 pack year hx, quit 40 years ago Alcohol Use Standard Drinks/Week [...] AM EDT documented as of this encounter Last Filed Vital Signs Vital Sign Reading Time Taken Comments Blood Pressure 162/92 06/13/2024 7:20 AM EST Pulse 81 06/13/2024 7:20 AM EST Temperature 36.6 C (97.8 F) 06/13/2024 7:20 AM ES T Respiratory Rate 18 06/13/2024 7:20 AM EST Oxygen Saturation 96% 06/13/2024 7:20 AM EST Inhaled Oxygen Concentration - - Weight 69 kg (152 lb 3.2 oz) 06/13/2024 7:20 AM EST Height - - Body Mass Index 27.84 04/03/2024 11:58 AM EDT documented in this encounter Functional Status * Are you deaf or do you have serious difficulty hearing? Answer Date of Assessment Author No 02/03/2019 12:00 AM EDT Palmira Ruvalcaba RN * Are you blind or do [...] Palmira Batista RN documented in this encounter Patient Instructions * Patient Instructions* Shelli Omer LPN - 06/13/2024 7:23 AM EST Patient Instructions - Fall Prevention (This education is for all patients over 65 regardless of symptoms) Remember to take your current medications as prescribed. In order to prevent falls, you are encouraged to: Exercise Utilize assistive/adaptive devices Avoid multifocal lenses when walking Avoid hazards in home Maintain a regular toileting schedule Any questions please contact our office. Preventing Falls in the Home (This education is for all patients over 65 regardless of symptoms) As you get older, falls are more likely. Thats because your reaction time slows. Your muscles and joints may also get stiffer, making them less flexible. Illness, medications, and vision changes can also affect your balance. A fall could leave you unable to live on your own. To make your home safer, follow these tips: Floors Put nonskid pads under area rugs Remove throw rugs Replace worn floor coverings Tack carpets firmly to each step on carpeted stairs. Put nonskid strips on the edges of uncarpeted stairs Keep floors and stairs free of clutter and cords Arrange furniture so there are clear pathways Clean up any spills right away Bathrooms Install grab bars in the tub or shower Apply nonskid strips or put a nonskid rubber mat in the tub or shower Sit on a bath chair to bathe Use bathmats with nonskid backing Lighting Keep a flashlight in each room Put a nightlight along the pathway between the bedroom and the bathroom [employer] Patient Education Copyright 2008 - 2010 [employer] except where otherwise noted Preventing Falls: Exercises to Improve Balance, Flexibility, Strength, and Staying Power (This education is for all patients over 65 regardless of symptoms) Certain types of exercises may help make you less likely to fall. Try the ones below. Or do other exercises that your healthcare provider suggests. Depending on your health, you may need to start slowly. Dont let that stop you. Even small amounts of exercise can help you. Be sure to talk to yourhealthcare provider before starting any exercise program. Improve Balance Many types of exercise can help improve balance. Rio chi and yoga are good examples. Heres another one to try. You can do it anytime and almost anywhere. Stand next to a counter or solid support. Push yourself up onto your tiptoes. Hold for 5 seconds. If you start to lose your balance, hold on to the counter. Rest and repeat 5 times. Work up to holding for 20 to 30 seconds, if you can. Increase Flexibility Being more flexible makes it easier for you to move around safely. Try exercises like the seated hamstring stretch. Sit in a chair and put one foot on a stool. Straighten your leg and reach with both hands down either side of your leg. Reach as far down your leg as you can. Hold for about 20 seconds. Go back to the starting position. Then repeat 5 times. Switch legs. Build Strength Resistance exercises help build strength. You can do them without equipment. Or you can use weights, elastic bands, or special machines. One such exercise is called the biceps curl. You can hold a 1 pound weight or even a can of soup. Do this exercise at least 3 times a week. Strive for everyday. Sit up straight in a chair. Keep your elbow close to your body and your wrist straight. Bend your arm, moving your hand up to your shoulder. Then slowly lower your arm. Repeat 5 times. Switch to the other arm. Build Your Staying Power Aerobic exercises make your heart and lungs stronger so you can keep moving longer. Walking and swimming are two of the best types of exercises you can do. Using a stationary bike is great, too. Find an aerobic exercise that you enjoy. Start slowly and build up. Even 5 minutes is helpful. Aimfor a goal of 30 minutes, at least 3 times a week. You dont have to do 30 minutes in one session. Break it up and walk a little throughout the day. More Helpful Tips Start easy. Slowly work up to doing more. Talk with your healthcare provider about the best exercises for you. Call senior centers or health clubs about exercise programs. If needed, have a family member watch you walk every so often to check your stability. Exercise with a friend. Choose an activity you both enjoy. Try exercises that you can do anytime, anywhere. Here are two examples. Have someone with you when you first try these: Practice walking by placing one foot right in front of the other. Stand up and sit down 10 times. Repeat this throughout the day. [employer] Patient Education Copyright 2009 - 2010 [employer] except where otherwise noted. Preventing Falls: Moving Safely Using a Cane or Walker (This education is for all patients over 65 regardless of symptoms) Keep the cane away from your feet so you dont trip. A walking aid, such as a cane or walker, can help you stay more independent and avoid falls. Remember to keep your walking aid within easy reach when youre in a chair or in bed. And learn how to use it safely so you dont injure yourself. Using a Cane If you have a stronger side, hold the cane on that side. Get your balance. Move the cane and your weaker leg forward. Support your weight on both the cane and your weaker side. Step with your stronger leg. Start again from step 1. If youre using a folding walker, be sure you know how to lock it open. Check that its locked open before each use. Using a Walker Roll the walker (or lift it, if youre using one without wheels) forward about 12 inches. Step forward with your weaker leg first. Use the walker to help keep your balance. Bring your other foot forward to the center of the walker. Start again from step 1. Helpful Tips Check with your healthcare provider about the right walking aid to use. Ask about a walker with a seat attached. Check the tips of your cane or walker to make sure they have nonskid covers. Move slowly from room to room. Dont england. Sit down to get dressed. Use a rik pack or backpack to keep your hands free. Get help for jobs that mean climbing, even on a stepstool. [employer] Patient Education Copyright 2008 - 2010 [employer] except where otherwise noted. Urinary Incontinence Plan of Care Documentation: (This education is for all patients over 65 regardless of symptoms) Current medications reconciled. Patient encouraged to: Practice kegal exercises Provide education materials Use the restroom every 2 hours throughout the day Limit caffeine, alcohol, spicy foods and acidic foods Keep a bladder diary Limit fluid intake 3-4 hours before bed Lose weight Prevent constipation Take fluid pills at a time when you can get to the bathroom quickly Control sugar better if diabetic Limit fluid intake to 60 oz. per day Wear support stockings (TEDs)if you have edema Shelil Omer LPN 06/13/2024 Kegel Exercises Kegel exercises dont require special clothing or equipment. Theyre easy to learn and simple to do. And if you do them right, no one can tell youre doing them, so they can be done almost anywhere. Your doctor, nurse, or physical therapist can answer any questions you have and help you get started. A Weak Pelvic Floor The pelvic floor muscles may weaken due to aging, and vaginal childbirth, injury, surgery, chronic cough, or lack of exercise. If the pelvic floor is weak, your bladder and other pelvic organs may sag out of place. The urethra may also open too easily and allow urine to leak out. Kegel exercises can help you strengthen your pelvic floor muscles so they can better support the pelvic organs and control urine flow. How Kegel Exercises Are Done Try each of the Kegel exercises described below. When youre doing them, try not to move your leg, buttock, or stomach muscles. While youre urinating, try to stop the flow of urine. Start and stop it as often as you can. Contract as if you were stopping your urine stream, but do it when youre not urinating. Tighten your rectum as if trying not to pass gas. Contract your anus, but dont move your buttocks. Helpful Hints Do your Kegels as often as you can. The more you do them, the faster youll feel the results. Pick an activity you do often as a reminder. For instance, do your Kegels every time you sit down. Tighten your pelvic floor before you sneeze, get up from a chair, cough, laugh, or lift. This protects your pelvic floor from injury and can help prevent urine leakage. Try to hold each Kegel for a slow count to five. You probably wont be able to hold them for thatlong at first, but keep practicing. It will get easier as your pelvic floor gets stronger. Eventually, special weights that you place in your vagina may be recommended to help make your Kegels even more effective. [employer] Patient Education Copyright 2009 - 2010 [employer] except where otherwise noted. Here are some helpful tips for your urinary incontinence: (This education is for all patients over 65 regardless of symptoms) Practice Kegel exercises Use the restroom every 2 hours throughout the day Limit caffeine, alcohol, spicy foods, and acidic foods Keep a bladder diary Limit fluid intake 3-4 hours before bed Lose weight Prevent constipation Take fluid pills at a time when can get to the bathroom quickly Control sugar better if diabetic Limit fluid intake to 60 oz. per day Any questions, please feel free to contact our office. documented in this encounter Progress Notes * Mainor Alarcon MD - 06/13/2024 7:40 AM EST Subjective: Apurva Reno is a 89 year old female. Chief Complaint Patient presents with Follow Up Pt here today for 6 month follow up HPI: 89-year-old seen today for routine six-month recheck. Known history type 2 diabetes in reasonably controlled, hypertension, dyslipidemia, CKD 3, status post basilar artery stenosis and prior CVAinvolving left posterior cerebral artery. Additionally she has been bothered now for several years with advanced osteoarthritis of the knees. She has had both cortisone and Synvisc injections but notes ongoing severe discomfort. She questions whether she might be able to have surgery for her knees but realizes at 89 that is Um questionable. She wants it least 2 get a surgical opinion. Otherwise seems to be doing okay. No problems with her diabetes. Last hemoglobin A1c was 7.4. No symptoms to suspect CVA. She has a number of skin lesions that she thought we might do cryo freeze as I mentioned that the last time I saw her . Patient Active Problem List Diagnosis Primary localized osteoarthrosis of pelvic region or thigh Type 2 diabetes mellitus with hemoglobin A1c goal of less than 7.0% (HCC) Hypertension Vitamin D deficiency Dyslipidemia, goal LDL below 70 Diplopia Ataxia Glaucoma Basilar artery stenosis/occlusion History of ischemic multifocal posterior circulation stroke Hypertensive kidney disease with stage 3a chronic kidney disease Diabetes mellitus with stage 3 chronic kidney disease (HCC) Type II diabetes mellitus with peripheral circulatory disorder (HCC) Occlusion of left posterior cerebral artery Current Outpatient Medications Medication Sig Dispense Refill [...] No current facility-administered medications for this visit. Review of patient's allergies indicates: No Known Allergies Objective: BP 162/92 | Pulse 81 | Temp 97.8 F (36.6 C) (Infrared ) | Resp 18 | Wt 152 lb 3.2 oz (69 kg) | SpO2 96% | BMI 27.84 kg/m | BSA 1.74 m Physical Exam: CONST: alert, pleasant, no acute distress HEAD: normocephalic, atraumatic NECK: supple, soft, no adenopathy EARS: canals normal, TMs normal NARES: clear Eyes - PERRLA, EOM'I OROPHARYNX: clear, no swelling or erythema, moist CV: regular rate and rhythm, no murmur CHEST: clear to auscultation bilaterally, no rales or wheezing ABD: soft, non tender, non distended, no masses or hepatosplenomegaly EXT: I do not appreciate any effusion about knee. She really does not have significant focal tenderness although slightly more tenderness over the lateral joint line of the left knee. She does have some subpatellar fremitus NEURO: AAOx3, no gross focal deficits, cerebellar signs normal, affect appropriate MENTAL STATUS: no evidence of thought disorder, no delusional thought, no evidence of paranoia, thought is non-tangential. SKIN: 6-10 mm in diameter scaly lesion in the right temporal area and mid point of the nose in the midline and left some orbital area ASSESSMENT/PLAN: Screening for depression Dm-check hemoglobin A1c. Looking for a resolve around 7.5. No change in treatment Actinic keratosis -3 lesions as described above on the face. After discussing with the patient we decided to do cryo freeze these 3 lesions. Two applications cryo applied to each lesion she was givenpost treatment Um wound directions. Osteoarthritis bilat knees-we discussed returning to see Sports Medicine or seen orthopedics. Ultimately she decided she wanted to see Dr. Myers at [facility] for an opinion. She realizes that he may indicate that she is not a surgical candidate or he may offer her surgery. If he does not feel she is asurgical candidate, I recommended she get back in touch with me so that we could set her up with Spo rts Medicine. If they do not have anything to offer then consider pain management. History of old CVA-no new clinical findings. See again 6 months She is going to return within a few months time to freeze lesions that appear to be seborrheic keratotic over the chest wall. Mainor Alarcon MD documented in this encounter Nursing Notes * Shelli Omer LPN - 06/13/2024 7:14 AM EST Chief Complaint Patient presents with Follow Up Pt here today for 6 month follow up documented in this encounter Plan of Treatment Upcoming Encounters Date Type Department Care Team (Late st Contact Info) Description 06/30/2024 11:30 AM EST Office Visit Podiatry [address] [place] [phone] Loyd Deleon, [facility] [address] [place] [address] 08/14/2024 12:20 PM EST [facility] [address] [place] [phone] Mainor Alarcon MD [address] [place] [address] 12/11/2024 9:40 AM EDT [facility] [address] [place] [phone] Mainor Alarcon MD [address] [place] [place] [address] Scheduled Orders Name Type Priority Associated Diagnoses Orde r Schedule HEMOGLOBIN A1C Lab Routine Type 2 diabetes mellitus with hemoglobin A1c goal of less than 7.0% ([facility]) Expected: 06/13/2024 (Approximate), Expires: 06/13/2025 DESTRUCTION PREMALIGNANT LESION 1ST Procedures Routine Actinic keratosis Ordered: 06/13/2024 DESTRUCTION PREMALIGNANT LESION 2-14 EA Procedures Routine Actinic keratosis Ordered: 06/13/2024 Scheduled Referrals Name Type Priority Associated Diagnoses Orde r Schedule ORTHOPAEDICS REFERRAL OP Referral Within 30 days (routine) Osteoarthritis of both knees, unspecified osteoarthritis type Ordered: 06/13/2024 Health Maintenance Due Date Last Done Comments Adult Wellness Visit 2003 Colonoscopy 04/01/2016 04/01/2011, 12/15/2007 COVID-19 Vaccine ( season) 2024 03/31/2022, 10/01/2021, 03/31/2021, Additional history exists HbA1c 04/28/2024 10/27/2023, 04/15, 10/30/2022, Additional history exists Albumin/Creatinine Ratio 10/26/2024 024, 10/29/2021, 04/26/2020, Additional history exists B-12 10/26/2024 10/27/2023, 10/12, 10/29/2021, Additional history exists CKD HGB USE SMARTSET 38200 10/26/202410/26, 10/30/2022, 10/22/2021, Additional history exists CKD PHOS USE SMARTSET 12397 10/26/202410/12, 05/01/2022, 04/26/2020, Additional history exists Diabetic [...] as of this encounter Visit Diagnoses Diagnosis Risk and functional assessment- Primary Screening for unspecified condition Screening for depression Type 2 diabetes mellitus with hemoglobin A1c goal of less than 7.0% (HCC) Osteoarthritis of both knees, unspecified osteoarthritis type Actinic keratosis documented in this encounter Advance Directives * Full Code (Latest Code Status on File) Date Activated Date Inactivated Comments 02/03/2019 12:43 AM 02/04/2019 6:07 PM This order reflects the patients wishes and were consensually agreed upon. Question Answer Comments Discussion of Advance Directives occurred with: Patient Care Teams Lead Mechanical Engineer Relationship Specialty Start Date End Date Mainor Alarcon MD PCP - General 05/23/04 documented as of this encounter"
--- OUTSIDE RECORDS SUMMARY | 2024-08-11 03:55 | External Medical Summary | Summary of Care ---
Author Name Unknown Organization [facility] Address [address] [place] [address] Phone [phone] Care Team Providers Care License Distributor Name Role Phone Sterling Alarcon MD Primary Care Provider [phone] Reason for Visit * Reason Comments eRx-Medication Refill Encounter Details Date Type Department Care Team (Late st Contact Info) Description 04/17/[address] [facility] [address] [place] [address] Sterling Alarcon MD [address], [place] [id number] HTN, goal below 150/90; History of ischemic multifocal posterior circulation stroke Allergies Active Allergy Reactions Criticality Noted Date Comments Lactose Intolerance (Gi) Abdominal pain 019 documented as of this encounter (statuses as of 04/18/2024) Medications Medication Sig Dispensed Refills Start Date End Date Status FISH OIL 300 MG PO CAPS once daily Active MAGNESIUM 250 MG PO TABS once daily Active GLUCOSAMINE CHONDROITIN COMPLX PO CAPS twice daily Active Multiple Vitamins-Minerals (MULTIVITAMIN ADULTS 50+) TABS Take by mouth. 06/21/2015 Acti ve Methylcellulose (Laxative) Oral Powder Take by mouth 1 Capsule daily . 1 Bottle 08/18/2017 Active Calcium Carb-Cholecalcife rol 500-200 MG-UNIT TABS Take 1 Tab by mouth daily. 60 Tab 11 08/18/2017 Active ONETOUCH ULTRASOFT LANCETS MISCIndications:D M type 2, not at goal (HCC) Use up to four times a day as directed 400 Box Dosing Unit 1 03/01/2019 Active Blood Glucose Monitoring Suppl (ACCU-CHEK CANDACE) ROSALIA Use to check blood sugar once a day, dx: E11.9 1 Device 05/01/2019 Active Accu-Chek Candace Plus In Vitro Strip (Glucose Blood)Indications :Type 2 diabetes mellitus with hemoglobin A1c goal of less than 8.0% (HCC) USE TO TEST BLOOD SUGAR DAILY 100 Strip 3 04/17/2022 Active Atorvastatin Calcium 40 MG Oral Tablet (Lipitor)Indyti ons:Dyslipidemia, goal LDL below 70 TAKE ONE TABLET BY MOUTH EVERY AFTERNOON 90 Tablet 1 02/18/2024 Active metFORMIN HCl ER 500 MG Oral Tablet Extended Release 24 Hour (Glucophage XR)Indications:Ty pe 2 diabetes mellitus with hemoglobin A1c goal of less than 8.0% (HCC) TAKE 1 TABLET BY MOUTH TWICE DAILY 30 minutes before morning and evening meals 180 Tablet 1 02/18/2024 Active Lidocaine 5 % External Patch (Lidoderm) 03/14/2024 Active Methocarbamol 500 MG Oral Tablet (Robamol) 03/14/2024 Active Dorzolamide HCl-Timolol Mal 2-0.5 % Ophthalmic Solution (Cosopt Ocumeter Plus) Instill into eye. 10/19/2023 Active Losartan Potassium 25 MG Oral Tablet (Cozaar)Indicatio ns:HTN, goal below 150/90 TAKE 1 TABLET BY MOUTH EVERY MORNING 90 Tablet 1 04/18/2024 Active Clopidogrel Bisulfate 75 MG Oral Tablet (pLAVix)Indicatio ns:History of ischemic multifocal posterior circulation stroke TAKE 1 TABLET BY MOUTH EVERY MORNING 90 Tablet 1 04/18/2024 Active Losartan Potassium 25 MG Oral Tablet (Cozaar)Indicatio ns:HTN, goal below 150/90 TAKE ONE TABLET BY MOUTH IN THE MORNING 90 Tablet 3 02/13/2023 4 Discontinued Clopidogrel Bisulfate 75 MG Oral Tablet (pLAVix)Indicatio ns:History of ischemic multifocal posterior circulation stroke TAKE 1 TABLET BY MOUTH EVERY MORNING 90 Tablet 3 02/23/2023 4 Discontinued documented as of this encounter (statuses as of 04/18/2024) Active Problems Problem Noted Date Diagnosed Date [...] as of this encounter (statuses as of 04/18/2024) Resolved Problems Problem Noted Date Diagnosed Date [...] ml/min) 10/29/2014 02/24/2019 Benign neoplasm of colon Overview: adenomatous/repeat colonoscopy in 3 yrs documented as of this encounter (statuses as of 04/18/2024) Immunizations Name Administration Dates Next Due COVID-19 mRNA, LNP-s, No Pre serve, 2-Dose Series ([employer]) 08/10/2020,07/20/2020 Pneumococcal Conjugate Vacc, 13 Valent (Prevnar) [...] Smoking Tobacco: Former Cigarettes Q uit: 11/12/1978 Smokeless Tobacco: Never Comments:5 pack year hx, zaynab t 40 years ago Alcohol Use Standard Drinks/Week Comments Yes 0 (1 standard drink = 0.6 oz pur e alcohol) rare PHQ-2 Answer Date Recorded PHQ-2 Score 0 04/26/2020 Hunger Vital Sign Answer Date Recorded Within the past 12 months, y ou worried that your food would run out before you got the money to buy more. Never true 04/26/20 20 Within the past 12 months, t he food you bought just didn't last and you didn't have money to get more. Never true 04/26/2020 Utilities Answer Date Recorded Do you have trouble paying y our heating, water, or electric bill? (Adult - for ages 18 years and over) Not on file 11/30/2023 Is your family able to pay t he heat, water, or electric bill? (Household - for ages 0-17 years) Not on file 11/30/2023 Does your family have access to good internet? (Household - for ages 0-17 years) Not on file 11/30/2023 Social Connections Answer Date Recorded How often do you feel lonely or isolated from those around you? (Adult - for ages 18 years and over) Not on file 11/30/2023 Sex and Gender Information Value Date Recorded Sex Assigned at Female 09/13/2018 7:28 AM EDT Gender Identity Female 09/13/2018 7:28 AM EDT Sexual Orientation Straight 09/13/2018 7: 28 AM EDT Job Start Date Occupation Industry Not on file Not on file Not on file documented as of this encounter Functional Status Functional Status Response Date of Assess ment Are you deaf or do you have serious difficulty h earing? No 02/03/2019 Are you blind or do you have serious difficulty seeing, even when wearing glasses? No 02/03/2019 Do you have serious difficul ty walking or climbing stairs? (5 years old or older) No 02/03/2019 Do you have difficulty dress ing or bathing? (5 years old or older) No 02/03/2019 Because of a physical, menta l, or emotional condition, do you have difficulty doing errands alone such as visiting a doctor s office or shopping? (15 years old or older) No 02/04/20 19 Cognitive Status Response Date of Assessm ent Because of a physical, menta l, or emotional condition, do you have serious difficulty concentrating, remembering, or making decisions? (5 years old or older) No 02/03/2019 documented as of this encounter Miscellaneous Notes * Telephone Encounter - Clarisa Serrano RPh - 04/18/2024 1:13 PM ESTSigned Prescriptions: Disp Refills Losartan Potassium 25 MG Oral Tablet (Coza*90 Tab*1 Sig: TAKE 1 TABLET BY MOUTH EVERY MORNINGAuthorizing Provider: STERLING ALARCON User: CLARISA SERRANO Clopidogrel Bisulfate 75 MG Oral Tablet (p*90 Tab*1 Sig: TAKE 1 TABLET BY MOUTH EVERY MORNINGAuthorizing Provider: STERLING ALARCON User: CLARISA SERRANO documented in this encounter Plan of Treatment Upcoming Encounters Date Type Department Care Team (Late st Contact Info) Description 05/08/2024 8:20 AM EST [facility] [address] [place] [address] Sterling Alarcon MD [address] [place] [address] 05/30/2024 10:30 AM EST Office Visit Podiatry [address] [place] [id number] Loyd Deleon, OLINDA [address] [place] [address] Health Maintenance Due Date Last Done Comments Adult Wellness Visit 2003 Colonoscopy 04/01/2016 04/01/2011, 12/15/2007 Depression Screening 04/26/2021 04/26/2020 COVID-19 Vaccine ( season) 2024 03/31/2022, 10/01/2021, 03/31/2021, Additional history exists HbA1c 04/28/2024 10/27/2023, 04/15, 10/30/2022, Additional history exists Albumin/Creatinine Ratio 10/26/2024 024, 10/29/2021, 04/26/2020, Additional history exists B-12 10/26/2024 10/27/2023, 10/12, 10/29/2021, Additional history exists CKD HGB USE SMARTSET 93332 10/26/202410/26, 10/30/2022, 10/22/2021, Additional history exists CKD PHOS USE SMARTSET 64363 10/26/202410/12, 05/01/2022, 04/26/2020, Additional history exists Diabetic Eye Exam 04/03/2025 07/28/2021, , 06/27/2014, Additional history exists Postponed from 07/28/2022 (Patient Declined After Education) Diabetic Foot Exam 04/03/2025 03/15/2023, 1 07/01/2020, 04/26/2020, Additional history exists Postponed from 03/15/2024 (Patient Declined After Education) DXA Scan 12/18/2027 12/17/2020, 12/14, 12/17/2008, Additional history exists DTap/Tdap Vaccines (3 - Td or Tdap) 11/02/2033 11/03/2023, 10/06/2013, 10/01/2008, Additional history exists RETIRED - COLONOSCOPY-EVERY 5 YRS AGES 18-100 Discontinued 04/01/2011, 12/15/2007 Pneumococcal Vaccine: 65+ Years Completed 10/09/2014, 11/17/2007 Zoster Vaccines Completed [...] as of this encounter Visit Diagnoses Diagnosis HTN, goal below 150/90 History of ischemic multifocal posterior circulation stroke Transient ischemic attack (TIA), and cerebral infarction without residual deficits documented in this encounter Advance Directives * Full Code (Latest Code Status on File) Date Activated Date Inactivated Comments 02/03/2019 12:43 AM 02/04/2019 6:07 PM This order reflects the patients wishes and were consensually agreed upon. Question Answer Comments Discussion of Advance Directives occurred with: Patient Care Teams License Distributor Relationship Specialty Start Date End Date Sterling Alarcon MD [address] [place] [address] PCP - General 05/23/04 documented as of this encounter
--- OUTSIDE RECORDS SUMMARY | 2024-08-11 03:55 | External Medical Summary | Summary of Care ---
Author Name Unknown Organization [facility] Address [address] [place] [address] Phone [phone] Care Team Providers Care Syrup Mixer Helper Name Role Phone Mainor Alarcon MD Primary Care Provider [phone] Reason for Referral * Evaluate & Treat - Unlimited Visits (Within 10 days (routine)) - Authorized Specialty Diagnoses / Procedures Referred By Saba lima Referred To Contact Physical Therapy / Physical Medicine And Rehab Diagnoses Ambulatory dysfunction At risk for falls Mainor Alarcon MD [address] [place] [address] Referral ID Status Reason Start Date Expiration Date Visits Requested Visits Authorized [id number] Authorized Specialty Services Required 4 [phone] Question Answer Referral Priority Within 10 days (routine) Where should this appointment be scheduled? [facility] Comments Recurrent falls Reason for Visit * Reason Comments Emergency Department Follow-Up Patient i s here today for a ED follow up. Patient states the bruising is very tender and she has loss of feeling on the left side of her head. Patient states she has a slight headache. Patient Encounter Details Date Type Department Care Team (Late st Contact Info) Description 04/03/2024 12:00 PM EDT Office Visit [facility] [address] [place] [address] Mainor Alarcon MD [address] [place] [address] Ambulatory dysfunction*; Type II diabetes mellitus with peripheral circulatory disorder (HCC); At risk for falls Allergies Active Allergy Reactions Criticality Noted Date Comments Lactose Intolerance (Gi) Abdominal pain 019 documented as of this encounter (statuses as of 04/03/2024) Medications Medication Sig Dispensed Refills Start Date [...] SUGAR DAILY 100 Strip 3 04/17/2022 Active Losartan Potassium 25 MG Oral Tablet (Cozaar)Indicatio ns:HTN, goal below 150/90 TAKE ONE TABLET BY MOUTH IN THE MORNING 90 Tablet 3 02/13/2023 Active Clopidogrel Bisulfate 75 MG Oral Tablet (pLAVix)Indicatio ns:History of ischemic multifocal posterior circulation stroke TAKE 1 TABLET BY MOUTH EVERY MORNING 90 Tablet 3 02/23/2023 Active Atorvastatin Calcium 40 MG Oral Tablet (Lipitor)Indicati ons:Dyslipidemia, goal LDL below 70 TAKE ONE [...] Ocumeter Plus) Instill into eye. 10/19/2023 Active Timolol Maleate PF (TIMOPTIC OCUDOSE) 0.5 % SOLN Instill into eye 2 times a day. 4 Discontinued Timolol Maleate 0.5 % Ophthalmic Solution (Timoptic) 10/26/2022 4 Discontinued documented as of this encounter (statuses as of 04/03/2024) Active Problems Problem Noted Date Diagnosed Date [...] as of this encounter (statuses as of 04/03/2024) Resolved Problems Problem Noted Date Diagnosed Date [...] as of this encounter (statuses as of 04/03/2024) Immunizations Name Administration Dates Next Due COVID-19 [...] on file documented as of this encounter Last Filed Vital Signs Vital Sign Reading Time Taken Comments Blood Pressure 132/74 04/03/2024 11:58 AM EDT Pulse 92 04/03/2024 11:58 AM EDT Temperature 36.5 C (97.7 F) 04/03/2024 11:58 AM E DT Respiratory Rate 16 04/03/2024 11:58 AM EDT Oxygen Saturation 98% 04/03/2024 11:58 AM EDT Inhaled Oxygen Concentration - - Weight 69.9 kg (154 lb) 04/03/2024 11:58 AM EDT Height 157.5 cm (5' 2") 04/03/2024 11:58 AM EDT Body Mass Index 28.17 04/03/2024 11:58 AM EDT documented in this encounter Functional Status Functional Status Response [...] No 02/03/2019 documented as of this encounter Progress Notes * Mainor Alarcon MD - 04/03/2024 1:41 PM EDT Subjective: Apurva Reno is a 88 year old female. Chief Complaint Patient presents with Emergency Department Follow-Up Patient is here today for a ED follow up. Patient states the bruising is very tender and she has loss of feeling on the left side of her head. Patient states she has a slight headache. Patient HPI: 88-year-old seen in follow-up after [facility] Emergency Room visit on 03/30/2024. She was cleaningher son room and carrying some plastic containers out to the driveway. She tripped on a small curb and fell straight forward. Her face took the brunt of the fall as she was holding things in both hands. She clearly states that she tripped and there was no preceding presyncopal episode. She was transported to [facility] ER where further evaluation included CT scan of the cervical spine showing no fracture or dislocation. CT scan of facial bones showed no fracture including no nasal bone fracture. CT scan of the brain showed old changes including some evidence of lacunar strokes and microvascular disease but no bleed. She did not have any significant laceration. She had large swellingover the left forehead with abraded area suturing. Since she has been home she has had a mild chronic headache. She has had no difficulty with vision or eating or chest pain or shortness of breath. Patient Active Problem List Diagnosis Primary localized osteoarthrosis of pelvic region or thigh Type 2 diabetes mellitus with hemoglobin A1c goal of less than 7.0% ([facility]) Hypertension Vitamin D deficiency Dyslipidemia, goal LDL [...] (MULTIVITAMIN ADULTS 50+) TABS Take by mouth. Calcium Carb-Cholecalciferol 500-200 MG-UNIT TABS Take 1 [...] TEST BLOOD SUGAR DAILY 100 Strip 3 Losartan Potassium 25 MG Oral Tablet (Cozaar) TAKE ONE TABLET BY MOUTH IN THE MORNING 90 Tablet 3 Clopidogrel Bisulfate 75 MG Oral Tablet (pLAVix) TAKE 1 TABLET BY MOUTH EVERY MORNING 90 Tablet 3 Atorvastatin Calcium 40 MG Oral Tablet [...] Solution (Cosopt Ocumeter Plus) Instill into eye. Methylcellulose (Laxative) Oral Powder Take by mouth 1 Capsule daily . (Patient not taking: Reported on 04/03/2024) 1 Bottle 0 No current facility-administered medications for this visit. Review of patient's allergies indicates: Allergen Reactions Lactose Intolerance (Gi) Abdominal pain Objective: BP 132/74 | Pulse 92 | Temp 36.5 C (97.7 F) (Tympanic) | Resp 16 | Ht 1.575 m (5' 2") | Wt 69.9kg (154 lb) | SpO2 98% | BMI 28.17 kg/m | BSA 1.75 m Physical Exam: CONST: alert, pleasant, she has significant ecchymosis involving both sides of her face and around both eyes in the left forehead. There is a large swelling/hematoma in the left forehead with a abrasion over the top. There is no drainage. She has some ecchymosis extending down the left side of her neck. HEAD: normocephalic, atraumatic NECK: supple, soft, no adenopathy Eyes - PERRLA, EOM'I OROPHARYNX: clear, no swelling or erythema, moist CV: regular rate and rhythm, no murmur CHEST: clear to auscultation bilaterally, no rales or wheezing. No chest wall tenderness ABD: soft, non tender, non distended, no masses or hepatosplenomegaly EXT: no edema, no joint swelling or deformities, ASSESSMENT/PLAN: Fall with subsequent facial trauma but without fracture. I recommended she use warm compresses overthe face especially the swelling in the left forehead to try to reduce swelling and reabsorbed blood. She is aware that the ecchymosis is going to gradually move inferiorly all due to gravity. High-risk falls given that she has had 2 prior major falls with head trauma. On each occasion she tripped. Refer to physical therapy to work with the patient as far as balance and safer ambulation. We did discuss whether she can continue to living with her site where the home as large and there is a good bit of yd work. I did not tell her that she needed to look at a new living location [place] as a personal custodial but think she and her need to consider a move to place were she would not have to do upkeep. Check-out note: Refer to energy PT for home therapy 30 minutes spent with Pt and to include discussion about trying to improve safety Mainor Alarcon MD documented in this encounter Nursing Notes * Chica Andres LPN - 04/03/2024 12:02 PM EDT The patient has been properly identified by confirmation of name and date of . Chief Complaint Patient presents with Emergency Department Follow-Up Patient is here today for a ED follow up. Patient states the bruising is very tender and she has loss of feeling on the left side of her head. Patient states she has a slight headache. Patient documented in this encounter Plan of Treatment Upcoming Encounters Date Type Department Care Team (Late st Contact Info) Description 04/03/2024 3:15 PM EDT Telemedicine Orthopaedics [facility] [address] [place] [address] Humberto Low MD [address] [place] [address] Primary osteoarthritis of both knees* 05/08/2024 8:20 AM EST Office Visit [facility] [address] [place] [phone] Mainor Alarcon MD [address] [place] [address] 05/30/2024 10:30 AM EST Office Visit Podiatry [address] [place] [phone] Loyd Deleon, OLINDA [address] [place] [address] Scheduled Referrals Name Type Priority Associated Diagnoses Orde r Schedule PHYSICAL THERAPY REFERRAL OP Referral Within 10 days (routine) Ambulatory dysfunction At risk for falls Ordered: 04/03/2024 Health Maintenance Due Date Last Done Comments Adult Wellness Visit 2003 Colonoscopy 04/01/2016 04/01/2011, 12/15/2007 Depression Screening 04/26/2021 04/26/2020 COVID-19 Vaccine ( season) 2024 03/31/2022, 10/01/2021, 03/31/2021, Additional history exists HbA1c 04/28/2024 10/27/2023, 04/15, 10/30/2022, Additional history exists Albumin/Creatinine Ratio 10/26/2024 024, 10/29/2021, 04/26/2020, Additional history exists B-12 10/26/2024 10/27/2023, 10/12, 10/29/2021, Additional history exists CKD HGB USE SMARTSET 07153 10/26/202410/26, 10/30/2022, 10/22/2021, Additional history exists CKD PHOS USE SMARTSET 35979 10/26/202410/12, 05/01/2022, 04/26/2020, Additional history exists Diabetic [...] as of this encounter Visit Diagnoses Diagnosis Primary osteoarthritis of both knees- Primary Primary localized osteoarthrosis, lower leg Ambulatory dysfunction- Primary Type II diabetes mellitus with peripheral circulatory disorder (HCC) Type II or unspecified type diabetes mellitus with peripheral circulatory disorders, not stated as uncontrolled At risk for falls Personal history of fall documented in this encounter Advance Directives * Full Code (Latest Code Status on File) Date Activated Date Inactivated Comments 02/03/2019 12:43 AM 02/04/2019 6:07 PM This order reflects the patients wishes and were consensually agreed upon. Question Answer Comments Discussion of Advance Directives occurred with: Patient Care Teams Syrup Mixer Helper Relationship Specialty Start Date End Date Mainor Alarcon MD [address] [place] [address] PCP - General 05/23/04 documented as of this encounter
--- OUTSIDE RECORDS SUMMARY | 2024-08-11 03:55 | External Medical Summary | Summary of Care ---
Author Name Unknown Organization [facility] Address [address] [place] [address] Phone [phone] Care Team Providers Care Sales Program Coordinator Name Role Phone Mainor Alarcon MD Primary Care Provider [phone] Reason for Visit * Reason Comments Pain Encounter Details Date Type Department Care Team (Latest Contact Info) Description 04/03/2024 3:15 PM EDT Telemedicine Orthopaedics [facility] [address] [place] [address] Humberto Low MD [address] [place] [address] Primary osteoarthritis of both knees* Allergies Active Allergy Reactions Criticality Noted Date [...] daily . 1 Bottle 08/18/2017 Active Calcium Carb-Cholecalcifer ol 500-200 MG-UNIT TABS Take 1 Tab by mouth daily. 60 Tab 11 08/18/2017 Active ONETOUCH ULTRASOFT LANCETS MISCIndications:DM type 2, not at goal (HCC) Use up to four times a day as directed 400 Box Dosing Unit 1 03/01/2019 Active Blood Glucose Monitoring Suppl (ACCU-CHEK CANDACE) ROSALIA Use to check blood sugar once a day, dx: E11.9 1 Device 05/01/2019 Active Accu-Chek Candace Plus In Vitro Strip (Glucose Blood)Indications: Type 2 diabetes mellitus with hemoglobin A1c goal of less than 8.0% (HCC) USE TO TEST BLOOD SUGAR DAILY 100 Strip 3 04/17/2022 Active Losartan Potassium 25 MG Oral Tablet (Cozaar)Indication s:HTN, goal below 150/90 TAKE ONE TABLET BY MOUTH IN THE MORNING 90 Tablet 3 02/13/2023 Active Clopidogrel Bisulfate 75 MG Oral Tablet (pLAVix)Indication s:History of ischemic multifocal posterior circulation stroke TAKE 1 TABLET BY MOUTH EVERY MORNING 90 Tablet 3 02/23/2023 Active Atorvastatin Calcium 40 MG Oral Tablet (Lipitor)Indicatio ns:Dyslipidemia, goal LDL below 70 TAKE ONE TABLET BY MOUTH EVERY AFTERNOON 90 Tablet 1 02/18/2024 Active metFORMIN HCl ER 500 MG Oral Tablet Extended Release 24 Hour (Glucophage XR)Indications:Typ e 2 diabetes mellitus with hemoglobin A1c goal of less than 8.0% (HCC) TAKE 1 TABLET BY MOUTH TWICE DAILY 30 minutes before morning and evening meals 180 Tablet 1 02/18/2024 Active Lidocaine 5 % External Patch (Lidoderm) 03/14/2024 Active Methocarbamol 500 MG Oral Tablet (Robamol) 03/14/2024 Active Dorzolamide HCl-Timolol Mal 2-0.5 % Ophthalmic Solution (Cosopt Ocumeter Plus) Instill into eye. 10/19/2023 Active documented as of this encounter (statuses [...] mRNA, LNP-s, No Pre serve, 2-Dose Series ([email or web address]) 08/10/2020,07/20/2020 Pneumococcal Conjugate Vacc, 13 Valent (Prevnar) [...] (15 years old or older) No 02/04/20 Cognitive Status Response Date of Assessm ent Because of a physical, menta l, or emotional condition, do you have serious difficulty concentrating, remembering, or making decisions? (5 years old or older) No 02/03/2019 documented as of this encounter Progress Notes * Humberto Low MD - 04/03/2024 3:15 PM EDT Apurva Reno [id number] Apurva Reno is a 87 year old female who presents for fu to [facility] for bilateral knee injury/pain. I saw her originally for bilateral knee pain on 11/16/2022 Most recent complete visit for bilateral knee pain was on 02/02/2024, however, she has been seen since procedure only visit I saw him originally for this on 02/02/2024 Apurva Reno is here unaccompanied Quality: reviewed and agree with Nursing Notes for HPI elements History: History on 11/16/2022 - New patient B/L knee pain with activity x 1 year last injection 10/30/2021, only lasted about 2 weeks. Patient denies any PT or injury or bracing or surgery. Patient is a diabetic: last A1c 7.7 10/30/2022 History on 12/09/2022: L knee pain. Would like an injection in the L knee. Had a steroid injection in the R knee on 11/16/22and reports improvement. Symptoms not exacerbated with walking Additional history on 03/12/2023: Pain has returned. However she reports she only had benefit until some point in December which gave heronly proximally 1 month benefit from the injections. Would like to have steroid injections Additional history on 02/02/2024: Viscosupplementation with Gelsyn completed on 05/17/23 in the BL knee. HELPED. She desires to repeat viscosupplementation. She also decided she did not have interest in having knee replacements and never scheduled with [facility] for that consultation. Since that visit: Viscosupplementation with Orthovisc completed on 02/18/2024 with ultrasound guidance Reports that helped not as much as Wayne had in the past. However she has decided that she is now ready to seek a surgical consultation regarding potential knee arthroplasty and plans to be seen at [facility] as she has seen them for other issues in the past. ROS: ROS per HPI otherwise non-contributory Past Medical History: Diagnosis Date Benign neoplasm [...] HX Osteoarthritis of hip Other specified glaucoma No family history on file. Social History Socioeconomic History Marital status: Spouse name: Not on file Number of children: 5 Years of education: Not on file Highest education level: Not on file Occupational History Not on file Tobacco Use Smoking status: Former Current packs/day: 0.00 Types: Cigarettes Quit date: 11/12/1978 Years since quittin.4 Smokeless tobacco: Never Tobacco comments: 5 pack year hx, quit 40 years ago Vaping Use Vaping status: Never Used Substance and Sexual Activity Alcohol use: Yes Comment: rare Drug use: No Sexual activity: Not on file Other Topics Concern Not on file Social History Narrative Working out: Run/ walk 3-5 days per week plus equipment at [facility] 30 minutes 3- 5 days Social Determinants of Health Financial Resource Strain: Not on file Food Insecurity: No Food Insecurity (04/26/2020) Hunger Vital Sign Worried About Running Out of Food in the Last Year: Never true Ran Out of Food in the Last Year: Never true Transportation Needs: Not on file Social Connections: Unknown (11/30/2023) Social Connections How often do you feel lonely or isolated from those around you? (Adult - for ages 18 years and over): Not on file Housing Stability: Not on file Radiology (I have personally reviewed the following films): 11/16/2022: Three-view x-ray of each knee FINDINGS Right knee: No acute fracture or subluxation. Marked narrowing of the medial compartment with associated tricompartmental osteophytic spurring. Generalized bone demineralization. No lytic or blastic lesion. Vascular calcifications. Left knee: No acute fracture or subluxation. Moderate to marked narrowing of the lateral compartment with associated tricompartmental osteophytic spurring. Generalized bone demineralization. No lyticor blastic lesion. Vascular calcifications. IMPRESSION IMPRESSION Marked bilateral osteoarthritis Assessment and Plan: 1) Chronic bilateral knee pain Secondary to bilateral knee DJD Right causes more pain than left Intra-articular steroid injection performed 11/16/2022 in the right knee helped significantly. Intra-articular steroid injection performed 12/09/2022 in the left knee also helped significantly. Reports over 80% benefit \which lasted about a month Those injections were later performed on 03/12/2023 it viscosupplementation was scheduled at that time and completed on 05/17/2023. Viscosupplementation with Gelsyn completed on 05/17/23 in the BL knee. HELPED. She desires to repeat viscosupplementation. She also decided she did not have interest in having knee replacements and never scheduled with [facility] for that consultation. Patient is a diabetic: last A1c 7.5 10/27/2023 Desired repeat viscosupplementation, Orthovisc is what was improved by her insurance. Viscosupplementation with Orthovisc completed on 02/18/2024 with ultrasound guidance Reports that helped not as much as Gelsyn had in the past. However she has decided that she is now ready to seek a surgical consultation regarding potential knee arthroplasty and plans to be seen at [facility] as she has seen them for other issues in the past. She will contact our office to let them know that she would like an evaluation regarding potential knee replacements. She will follow up with me if she desires to continue to pursue conservative options based on that consultation After connecting to the patient via telephone, the patient was identified by name and date of . Patient was then informed that this was a telephone call only visit. The patient agreed to participate. Visit Disposition: Routine follow-up Total call duration was 3 minutes. Humberto Low MD Sports Medicine [facility] [address] [place] [address] documented in this encounter Plan of Treatment Upcoming Encounters Date Type Department Care Team ([facility] st Contact Info) Description 05/08/2024 8:20 AM EST Office Visit [facility] [address] [place] [address] Mainor Alarcon MD [address] [place] [address] 05/30/2024 10:30 AM EST Office Visit Podiatry [address] [place] [id number] Loyd Deleon, [facility] [address] [place] [address] Health Maintenance Due Date Last Done Comments Adult Wellness Visit 2003 Colonoscopy 04/01/2016 04/01/2011, 12/15/2007 Depression Screening 04/26/2021 04/26/2020 COVID-19 Vaccine ( season) 2024 03/31/2022, 10/01/2021, 03/31/2021, Additional history exists HbA1c 04/28/2024 10/27/2023, 04/15, 10/30/2022, Additional history exists Albumin/Creatinine Ratio 10/26/2024 024, 10/29/2021, 04/26/2020, Additional history exists B-12 10/26/2024 10/27/2023, 10/12, 10/29/2021, Additional history exists CKD HGB USE SMARTSET 12184 10/26/202410/26, 10/30/2022, 10/22/2021, Additional history exists CKD PHOS USE SMARTSET 03365 10/26/202410/12, 05/01/2022, 04/26/2020, Additional history exists Diabetic [...] knees- Primary Primary localized osteoarthrosis, lower leg documented in this encounter Advance Directives * Full Code (Latest Code Status on File) Date Activated Date Inactivated Comments 02/03/2019 12:43 AM 02/04/2019 6:07 PM This order reflects the patients wishes and were consensually agreed upon. Question Answer Comments Discussion of Advance Directives occurred with: Patient Care Teams Sales Program Coordinator Relationship Specialty Start Date End Date Mainor Alarcon MD [address] [place] [address] PCP - General 05/23/04 documented as of this encounter
--- OUTSIDE RECORDS SUMMARY | 2024-08-11 03:55 | External Medical Summary | Summary of Care ---
Author Name Unknown Organization [facility] Address [address] [place] [address] Phone [phone] Care Team Providers Care Energy Efficient Site Manager Name Role Phone Mainor Alarcon MD Primary Care Provider [phone] Reason for Visit * Reason Onset Date Comments Forms Request 04/19/2024 Encounter Details Date Type Department Care Team (Late st Contact Info) Description 04/19/[address] [facility] [address] [place] [address] Mainor Alarcon MD [address] [place] [address] Forms Request Allergies Active Allergy Reactions Criticality Noted Date Comments Lactose Intolerance (Gi) Abdominal pain 019 documented as of this encounter (statuses as of 04/19/2024) Medications Medication Sig Dispensed Refills Start Date [...] Tablet (Cozaar)Indication s:HTN, goal below 150/90 TAKE 1 TABLET BY MOUTH EVERY MORNING 90 Tablet 1 04/18/2024 Active Clopidogrel Bisulfate 75 MG Oral Tablet (pLAVix)Indication s:History of ischemic multifocal posterior circulation stroke TAKE 1 TABLET BY MOUTH EVERY MORNING 90 Tablet 1 04/18/2024 Active documented as of this encounter (statuses as of 04/19/2024) Active Problems Problem Noted Date Diagnosed Date [...] as of this encounter (statuses as of 04/19/2024) Resolved Problems Problem Noted Date Diagnosed Date [...] as of this encounter (statuses as of 04/19/2024) Immunizations Name Administration Dates Next Due COVID-19 mRNA, LNP-s, No Pre serve, 2-Dose Series ([employer]) 08/10/2020,07/20/2020 Pneumococcal Conjugate Vacc, 13 Valent (Prevnar) [...] Telephone Encounter - Chica Andres LPN - 04/19/2024 1:49 PM EST Received Fax for BFPROVIDERS: Dr. Mainor Alarcon PT PLAN OF C[facility] and FAXED documented in this encounter Plan of Treatment Upcoming Encounters Date Type Department Care Team (Late st Contact Info) Description 05/08/2024 8:20 AM EST Office Visit [address] [address] Mainor Alarcon MD [address] [place] [address] 05/30/2024 10:30 AM EST Office Visit Podiatry [address] [place] [id number] Loyd Deleon DPM [facility] [place] [address] Health Maintenance Due Date Last Done Comments Adult Wellness Visit 2003 Colonoscopy 04/01/2016 04/01/2011, 12/15/2007 Depression Screening 04/26/2021 04/26/2020 COVID-19 Vaccine ( season) 2024 03/31/2022, 10/01/2021, 03/31/2021, Additional history exists HbA1c 04/28/2024 10/27/2023, 04/15, 10/30/2022, Additional history exists Albumin/Creatinine Ratio 10/26/2024 024, 10/29/2021, 04/26/2020, Additional history exists B-12 10/26/2024 10/27/2023, 10/12, 10/29/2021, Additional history exists CKD HGB USE SMARTSET 96109 10/26/202410/26, 10/30/2022, 10/22/2021, Additional history exists CKD PHOS USE SMARTSET 48254 10/26/202410/12, 05/01/2022, 04/26/2020, Additional history exists Diabetic Eye Exam 04/03/2025 07/28/2021, , 06/27/2014, Additional history exists Postponed from 07/28/2022 (Patient Declined After Education) Diabetic Foot Exam 04/03/2025 03/15/2023, 1 07/01/2020, 04/26/2020, Additional history exists Postponed from 03/15/2024 (Patient Declined After Education) DXA Scan 12/18/2027 12/17/2020, 07, 12/17/2008, Additional history exists DTap/Tdap Vaccines (3 [...] Advance Directives occurred with: Patient Care Teams Energy Efficient Site Manager Relationship Specialty Start Date End Date Mainor Alarcon MD [address] [place] [address] PCP - General 05/23/04 documented as of this encounter
--- NOTE | 2024-08-11 04:06 | CT Scan Report ---
EXAM: CT head/brain wo con CLINICAL HISTORY: Neuro deficit, acute, stroke suspected TECHNIQUE: An axial non-contrast CT scan of the brain was performed from the skull base to the high parietal region. One of the following dose reduction techniques were utilized for this exam: Automated exposure control, adjustment of the mA and/or kV according to patient size, use of iterative reconstruction. COMPARISON: 03/30/[address] FINDINGS: Brain Parenchyma: Advanced periventricular ischemic changes.stable Old lacunar infarct seen at right putamen, and right periventricular white matter ( stable). Hypodeinsity seen at right frontal subcortical region, mostly due to old insult.( stable). No intracranial hemorrhage. Ventricular System: Ventricles are capacious. Subarachnoid Spaces: Capacious sulci and cisterns. No evidence of subarachnoid hemorrhage or extra-axial fluid collections. Cerebellum and Brainstem: Normal size and attenuation. Orbits: Normal appearance of the globes, optic nerves, and extraocular muscles. No evidence of orbital masses or abnormal signal. Sinuses: Clear paranasal sinuses. No evidence of sinusitis or mucosal thickening. Mastoid Air Cells: Clear mastoid air cells. No evidence of mastoiditis. Skull: Normal skull morphology. IMPRESSION: 1. Capacious CSF spaces and ventricles in keeping with patient age. 2. Advanced periventricular ischemic changes.stable 3. Old lacunar infarct seen at right putamen, and right periventricular white matter ( stable). 4. Hypodeinsity seen at right frontal subcortical region, mostly due to old insult.( stable). 5. Early changes of a stroke may not be detected on a CT scan. If strong clinical suspicion of stroke then suggest MRI with diffusion-weighted imaging. Electronically signed by Estela Singh 08-11-2024 04:06 AM
[2024-08-11] MEDS: FAMOTIDINE 20MG IV PUSH 20 MG/5 ML SYR IV STA (04:15)
--- NOTE | 2024-08-11 04:29 | CT Scan Report ---
EXAM: CT angio head w con CLINICAL HISTORY: Stroke alert TECHNIQUE: Axial CT angiography of the head was done with 118 ML OPTIRAY 320 contrast and sagittal and coronal reformats with MIP reconstructions. One of these 3D techniques was utilized: Maximum Intensity Pixel (MIP), 3D Reconstructed Images, Volume Rendered Images, Surface Shaded Rendering. One of the following dose reduction techniques were utilized for this exam: Automated exposure control, adjustment of the mA and/or kV according to patient size, and use of iterative reconstruction. COMPARISON: None. FINDINGS: Intracranial Arteries: The intracranial portions of the internal carotid arteries, anterior cerebral arteries, right middle cerebral arteries, and posterior cerebral arteries, are opacified. The M1 segment of left MCA showed mild narrowing, however patent. No evidence of an aneurysm. atherosclerotic calcified plaques of cavernous and clinoid parts of both internal carotid arteries noted. 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 Atherosclerotic changes and tight luminal narrowing of the middle/distal part of the basilar artery were noted . [place] of Small: The [place] of Small is complete. No vascular malformations or aneurysms. Venous Structures: Normal opacification of the major dural venous sinuses. No evidence of venous sinus thrombosis. Brain Parenchyma: No evidence of acute infarct, hemorrhage, or mass effect. Ventricular System: Capacious ventricular system and CSF spaces. IMPRESSION: 1. Diffuse atherosclerotic changes. 2. The M1 segment of left MCA showed mild narrowing, however patent. 3. Atherosclerotic calcified plaques of cavernous and clinoid parts of both internal carotid arteries were noted. 4. 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 5. Atherosclerotic changes and tight luminal narrowing of the middle/distal part of the basilar artery. Electronically signed by Estela Singh 08-11-2024 04:28 AM
--- NOTE | 2024-08-11 04:47 | CT Scan Report ---
EXAM: CT angio neck with con CLINICAL HISTORY: stroke alert. TECHNIQUE: CT angiography study of the neck vessels with IV contrast was performed and multiple axial sections were obtained with coronal and sagittal reconstructions. 118 ML OPTIRAY 320 was administered, CTDI:72.24 mGy, DLP: 1108.94 mGy*cm. One of the following dose reduction techniques were utilized for this exam: Automated exposure control, adjustment of the mA and/or kV according to patient size, and use of iterative reconstruction. One of these 3D techniques was utilized: Maximum Intensity Pixel (MIP), 3D Reconstructed Images, Volume Rendered Images, Surface Shaded Rendering. COMPARISON: 02/02/2019 CT angio neck. FINDINGS: Carotid Arteries: Common carotid arteries, internal carotid arteries, and external carotid arteries are well-opacified bilaterally. No evidence of significant stenosis, occlusion, or aneurysm. Both carotid bulbs and both proximal internal carotid arteries showed calcified atherosclerotic changes causing mild luminal attenuation. Also cavernous and clenoid segments of both internal carotid arteries showed calcified atherosclerotic changes. Vertebral Arteries: The right vertebral artery showed diffuse attenuation and occlusion of the distal part. Dominant left vertebral artery with mild atherosclerotic changes. Jugular Veins: Normal opacification of the internal and external jugular veins bilaterally. No evidence of thrombosis or compression. Subclavian Arteries: Subclavian arteries are bilaterally well-opacified. No evidence of significant stenosis, occlusion, or aneurysm. Thyroid Gland: Normal size and morphology of the thyroid gland. No masses or nodules. Soft Tissues: Normal appearance of the surrounding soft tissues of the neck. No abnormal masses or lymphadenopathy. Cervical Spine: Degenerative changes. IMPRESSION: 1. Both carotid bulbs and both proximal internal carotid arteries showed calcified atherosclerotic changes.( stable) 2. The right vertebral artery showed diffuse attenuation/hypoplasia. Stable 3. Dominant left vertebral artery with mild atherosclerotic changes.Stable Electronically signed by Estela Singh 08-11-2024 04:46 AM
--- NOTE | 2024-08-11 05:03 | XRay Report ---
EXAM: XR chest 1V portable CLINICAL HISTORY: stroke alert TECHNIQUE: An X-ray image of the chest is obtained in AP projection. COMPARISON: x-ray chest dated 02/02/2019 FINDINGS: Pulmonary Parenchyma: Bilateral prominent bronchovascular markings noted. Lungs are clear bilaterally. No evidence of consolidation, collapse, or focal opacities. No pulmonary nodules are identified. No evidence of pleural effusion or pleural thickening. Heart and Mediastinum: Heart size and shape are normal. No mediastinal widening or masses. No hilar or mediastinal lymphadenopathy. Bony Thorax: Bony thorax appears intact without fractures or deformities. Soft Tissues: Soft tissues overlying the chest wall are unremarkable. IMPRESSION: 1. Bilateral prominent bronchovascular markings noted. No interval changes compared to prior study. 2. No acute cardiopulmonary abnormalities are identifie (allelic regulant) Electronically signed by Estela Singh 08-11-2024 05:03 AM
[2024-08-11] MEDS: ACETAMINOPHEN 325 MG TAB PO STA (07:47)
--- NOTE | 2024-08-11 08:29 | History & Physical Report ---
Date of Service August 11, 2024 Assessment & Plan (1) Stroke-like episode: Plan: 89-year-old female with past medical history significant for type 2 diabetes, CKD stage III, hyperlipidemia, hypertension, history of basilar artery stenosis/occlusion, history of occlusion of left posterior cerebral artery, vitamin D deficiency, osteoarthritis, glaucoma, history of diplopia, ataxia and posterior circulation stroke presents with a fall and in the ER she had a strokelike episode. Patient states she was walking in the hallway and when she turned she hit her head and fell to the ground and was able to get up with her 's help. She has a laceration on the skull and she was bleeding. She was brought to the ER. In the ER evangelina were placed on the laceration. Imaging studies were okay. ER planned to discharge her. But in the ER when she was in the bathroom she suddenly was having slurred speech and also some weakness in the right side. Seems it lasted for about 10 to 20 minutes. Patient does not remember the episode. Stroke alert was called. CT head and CT head and neck no acute findings. Patient currently resting comfortably. Alert and oriented. Able to give her history. Has some headache. No dizziness. Vision is okay. Says always has some runny nose. No cough. No difficulty swallowing. No chest pain. No shortness of breath. Has some nausea. No abdominal pain. Normal bowel and bladder movements. Hemodynamics are okay. Strokelike episode Brief episode of slurred speech and right-sided weakness Possible TIA CT head and CTA head and neck no acute findings Patient was admitted in January 2019 with CVA at that time CTA showed 90% stenosis of basilar artery and stenosis of the L M1 segment of MCA as well. MRI showed acute infarct in right cerebellum, right thalamus and right occipital lobe. She she had dysarthria and diplopia. Because of fluctuation of symptoms she was placed on heparin drip and transferred to [place]. At [place] heparin was stopped and she was placed on aspirin and Plavix. Patient currently on Plavix and statin Will hold losartan for permissive hypertension IV fluids Neurochecks Echo MRI brain PT OT Neuroconsult for further recommendation Laceration of scalp Status post evangelina Short course of Augmentin Needs follow-up Type 2 diabetes Hold metformin Sliding scale Fall HbA1c goal Will monitor Hyperlipidemia Continue statin Follow lipid profile CKD stage III Creatinine 1.1 Will follow labs fall pt/ot DVT prophylaxis SCDs for now Disposition Telemetry Full code History of Present Illness Chief Complaint: Fall and strokelike episode Primary Care Provider: Mainor Alarcon MD 89-year-old female with past medical history significant for type 2 diabetes, CKD stage III, hyperlipidemia, hypertension, history of basilar artery stenosis/occlusion, history of occlusion of left posterior cerebral artery, rakesh min D deficiency, osteoarthritis, glaucoma, history of diplopia, ataxia and posterior circulation stroke presents with a fall and in the ER she had a strokelike episode. Patient states she was walking in the hallway and when she turned she hit her head and fell to the ground and was able to get up with her 's help. She has a bruise on the skull and she was bleeding. She was brought to the ER. In the ER evangelina were placed on the laceration. Imaging studies were okay. ER planned to discharge her. But in the ER when she was in the bathroom she suddenly was having slurred speech and also some weakness in the right side. Seems it lasted for about 10 to 20 minutes. Patient does not remember the episode. Stroke alert was called. CT head and CT head and neck no acute findings. Patient currently resting comfortably. Alert and oriented. Able to give her history. Has some headache. No dizziness. Vision is okay. Says always has some runny nose. No cough. No difficulty swallowing. No chest pain. No shortness of breath. Has some nausea. No abdominal pain. Normal bowel and bladder movements. Hemodynamics are okay. Past medical history. As mentioned above. Past surgical history. Bilateral carotid artery catheter placement. Colonoscopy. Ligation of oviducts. Left hip replacement. Treatment of ectopic . Vertebral artery catheter placement. Social history. . Quit smoking 1978. Alcohol rarely. No drug use. Family history. Father had a possible DE. Allergies Allergy/AdvReac Type Severity Reaction Status Date / Time No Known Allergies Allergy Unverified 04/05/20 09:47 Home Medications Medication Instructions Recorded Confirmed Type atorvastatin 40 mg tablet 40 mg PO DAILY 08/11/24 08/11/24 History clopidogrel 75 mg tablet 75 mg PO DAILY 08/11/24 08/11/24 History dorzolamide 22.3 mg-timolol 6.8 1 drp OPB BID 02/28/25 02/28/25 History mg/mL eye drops losartan 25 mg tablet 25 mg PO DAILY 08/11/24 08/11/24 History metformin 500 mg tablet,extended 500 mg PO BID 08/11/24 08/11/24 History release 24 hr Past Med/Surg History Problem List (Updated 08/11/24 @ 08:41 by Javier Montejo MD) Stroke-like episode Fall (Acute) Complex laceration of scalp (Acute) Closed head injury (Acute) Medical History HLD (hyperlipidemia) CKD (chronic kidney disease) stage 3, GFR 30-59 ml/min Vitamin D deficiency, unspecified Glaucoma CVA (cerebral vascular accident) Hypertension Diabetes Surgical History History of shoulder surgery History of total hip arthroplasty History of tubal ligation History of colonoscopy Family History Father Myocardial infarction Mother of unknown cause Other Family history non-contributory Social History Smoking Status: Never smoker packs per day: 1; Second Hand Exposure: No; Do You Dip or Chew Tobacco: No; Hx Alcohol Use: Yes Alcohol type: wine and hard liquor Hx Substance Use: No Preferred Language: Turkish Communication Ability: Effective Communication Ability Comment: double vision Child Life Assistant Required: No Beliefs That Will Affect Care: None marital status: Current Living Situation: Spouse current occupational status: retired 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 Head- laceration and evangelina seen on the front part of skull Eyes- PERRL, EOMI. ENT- oropharynx clear Neck- supple, no JVD. Lungs- clear to auscultation no wheezing or crackles Heart- regular rhythm; no murmur, no gallop. Abdomen- normal bowel sounds, soft, nontender, no distension. Extremities- no pretibial edema, no erythema seen. Neuro- alert, oriented PERRL, EOMI; no facial palsy; no dysarthria; motor 5/5 bilaterally; no pronator drift, c ordination of movements normal, sensations intact and position sense intact. Results & Data Results & Data Vital Signs (Past 12 Hours) Vital Signs Temp Pulse Pulse Resp BP BP Pulse Ox 08/11/24 07:36 78 13 96 08/11/24 07:00 72 19 91 08/11/24 06:36 77 18 112/67 98 08/11/24 06:23 73 08/11/24 05:00 71 18 95/56 L 98 08/11/24 03:46 69 16 121/94 95 08/11/24 01:00 80 21 124/81 97 08/10/24 23:14 75 08/10/24 23:04 76 16 148/89 H 97 08/10/24 22:50 36.8 C 80 18 150/91 H 97 O2 Del Method 08/11/24 07:36 Room Air 08/11/24 07:00 Room Air 08/11/24 06:36 Room Air 08/11/24 06:23 08/11/24 05:00 Room Air 08/11/24 03:46 Room Air 08/11/24 01:00 Room Air 08/10/24 23:14 08/10/24 23:04 Room Air 08/10/24 22:50 Room Air Diagnostic Findings Laboratory Results WBC 4.76 K/ul (4.8-10.8) L 08/10/24 23:08 RBC 3.95 M/uL (4.20-5.40) L 08/10/24 23:08 Hgb 12.6 g/dl (12.0-16.0) 08/10/24 23:08 Hct 37.2 % (37.0-47.0) 08/10/24 23:08 MCV 94.2 fL (80.0-100.0) 08/10/24 23:08 MCH 31.9 pg (25.0-34.0) 08/10/24 23:08 MCHC 33.9 g/dL (32.0-36.0) 08/10/24 23:08 RDW Std Deviation 48.9 fL (36.4-46.3) H 08/10/24 23:08 RDW Coeff of Sandra 14.2 % (11.5-14.5) 08/10/24 23:08 Plt Count 219 K/uL (130-400) 08/10/24 23:08 MPV 11.1 fL (9.4-12.4) 08/10/24 23:08 Immature Gran % (Auto) 0.2 % 08/10/24 23:08 Neut % (Auto) 45.8 % 08/10/24 23:08 Lymph % (Auto) 41.4 % 08/10/24 23:08 [place] % (Auto) 9.7 % 08/10/24 23:08 Eos % (Auto) 2.1 % 08/10/24 23:08 Baso % (Auto) 0.8 % 08/10/24 23:08 Neut # (Auto) 2.18 K/uL (1.40-6.50) 08/10/24 23:08 Lymph # (Auto) 1.97 K/uL (1.20-3.40) 08/10/24 23:08 [place] # (Auto) 0.46 K/uL (0.11-0.59) 08/10/24 23:08 Eos # (Auto) 0.10 K/uL (0.00-0.50) 08/10/24 23:08 Baso # (Auto) 0.04 K/uL (0.00-0.20) 08/10/24 23:08 Immature Gran # (Auto) 0.01 K/uL (0.01-0.20) 08/10/24 23:08 PT 10.2 Seconds (9.0-12.0) 08/10/24 23:08 INR 0.9 (0.9-1.1) 08/10/24 23:08 APTT 26 Seconds (21-31) 08/10/24 23:08 PTT Ratio 1.0 08/10/24 23:08 Sodium 139 mmol/L (136-145) 08/10/24 23:08 Potassium 3.7 mmol/L (3.5-5.1) 08/10/24 23:08 Chloride 101 mmol/L (98-107) 08/10/24 23:08 Carbon Dioxide 31 mmol/L (21-32) 08/10/24 23:08 Anion Gap 7 (3-11) 08/10/24 23:08 BUN 20 mg/dl (6-23) 08/10/24 23:08 Creatinine 1.12 mg/dl (0.6-1.2) 08/10/24 23:08 Est Cr Clr Drug Dosing 33.0 ml/min 08/10/24 23:08 eGFR 47.59 08/10/24 23:08 BUN/Creatinine Ratio 17.9 (10-20) 08/10/24 23:08 Glucose 153 mg/dl (70-99(Fasting)) H 08/10/24 23:08 POC Glucose 197 mg/dl (70-99) H 08/11/24 03:09 Calcium 10.0 mg/dl (8.6-10.3) 08/10/24 23:08 Total Bilirubin 0.5 mg/dl (0.2-1.0) 08/10/24 23:08 Direct Bilirubin 0.1 mg/dl (0-0.2) 08/10/24 23:08 AST 20 U/L (13-39) 08/10/24 23:08 ALT 13 U/L (7-52) 08/10/24 23:08 Alkaline Phosphatase 78 U/L (34-104) 08/10/24 23:08 Troponin I High Sens 4.3 pg/ml (0-14) 08/11/24 04:12 Total Protein 7.3 gm/dl (6.0-8.3) 08/10/24 23:08 Albumin 4.5 gm/dl (3.4-5.0) 08/10/24 23:[address] 08/10/24 23:09 Exam(s): CT C SPINE EXAM: CT Cervical Spine Without Intravenous Contrast CLINICAL HISTORY: Reason for exam: Trauma. TECHNIQUE: Axial computed tomography images of the cervical spine without intravenous contrast. CTDI is 23.67 mGy and DLP is 1207.06 mGy-cm. Automated exposure control was utilized for the study. A dose lowering technique was utilized adhering to the principles of ALARA. COMPARISON: Prior CT scan of the cervical spine from March 30, 2024. FINDINGS: Vertebrae: Unremarkable. No acute fracture. Discs/spinal canal/neural foramina: No acute findings. There is a critical spinal canal stenosis at C4-5, C5-6 and C6-7. Soft tissues: Unremarkable. IMPRESSION: No evidence of acute cervical spine pathology. Critical spinal canal stenosis at C4-5 through C6-7. Recommend MRI of the cervical spine to evaluate for myelopathy. Electronically signed by: France Rivera MD 08/11/24 01:00 AM Head CTA 08/11/24 03:08 EXAM: CT angio head w con CLINICAL HISTORY: Stroke alert TECHNIQUE: Axial CT angiography of the head was done with 118 ML OPTIRAY 320 contrast and sagittal and coronal reformats with MIP reconstructions. One of these 3D techniques was utilized: Maximum Intensity Pixel (MIP), 3D Reconstructed Images, Volume Rendered Images, Surface Shaded Rendering. One of the following dose reduction techniques were utilized for this exam: Automated exposure control, adjustment of the mA and/or kV according to patient size, and use of iterative reconstruction. COMPARISON: None. FINDINGS: Intracranial Arteries: The intracranial portions of the internal carotid arteries, anterior cerebral arteries, right middle cerebral arteries, and posterior cerebral arteries, are opacified. The M1 segment of left MCA showed mild narrowing, however patent. No evidence of an aneurysm. atherosclerotic calcified plaques of cavernous and clinoid parts of both internal carotid arteries noted. 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 Atherosclerotic changes and tight luminal narrowing of the middle/distal part of the basilar artery were noted . [place]: The [place] is complete. No vascular malformations or aneurysms. Venous Structures: Normal opacification of the major dural venous sinuses. No evidence of venous sinus thrombosis. Brain Parenchyma: No evidence of acute infarct, hemorrhage, or mass effect. Ventricular System: Capacious ventricular system and CSF spaces. IMPRESSION: 1. Diffuse atherosclerotic changes. 2. The M1 segment of left MCA showed mild narrowing, however patent. 3. Atherosclerotic calcified plaques of cavernous and clinoid parts of both internal carotid arteries were noted. 4. 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 5. Atherosclerotic changes and tight luminal narrowing of the middle/distal part of the basilar artery. Electronically signed by Estela iSngh 08-11-2024 04:28 AM Neck CTA 08/11/24 03:08 EXAM: CT angio neck with con CLINICAL HISTORY: stroke alert. TECHNIQUE: CT angiography study of the neck vessels with IV contrast was performed and multiple axial sections were obtained with coronal and sagittal reconstructions. 118 ML OPTIRAY 320 was administered, CTDI:72.24 mGy, DLP: 1108.94 mGy*cm. One of the following dose reduction techniques were utilized for this exam: Automated exposure control, adjustment of the mA and/or kV according to patient size, and use of iterative reconstruction. One of these 3D techniques was utilized: Maximum Intensity Pixel (MIP), 3D Reconstructed Images, Volume Rendered Images, Surface Shaded Rendering. COMPARISON: 02/02/2019 CT angio neck. FINDINGS: Carotid Arteries: Common carotid arteries, internal carotid arteries, and external carotid arteries are well-opacified bilaterally. No evidence of significant stenosis, occlusion, or aneurysm. Both carotid bulbs and both proximal internal carotid arteries showed calcified atherosclerotic changes causing mild luminal attenuation. Also cavernous and clenoid segments of both internal carotid arteries showed calcified atherosclerotic changes. Vertebral Arteries: The right vertebral artery showed diffuse attenuation and occlusion of the distal part. Dominant left vertebral artery with mild atherosclerotic changes. Jugular Veins: Normal opacification of the internal and external jugular veins bilaterally. No evidence of thrombosis or compression. Subclavian Arteries: Subclavian arteries are bilaterally well-opacified. No evidence of significant stenosis, occlusion, or aneurysm. Thyroid Gland: Normal size and morphology of the thyroid gland. No masses or nodules. Soft Tissues: Normal appearance of the surrounding soft tissues of the neck. No abnormal masses or lymphadenopathy. Cervical Spine: Degenerative changes. IMPRESSION: 1. Both carotid bulbs and both proximal internal carotid arteries showed calcified atherosclerotic changes.( stable) 2. The right vertebral artery showed diffuse attenuation/hypoplasia. Stable 3. Dominant left vertebral artery with mild atherosclerotic changes.Stable Electronically signed by Estela Singh 08-11-2024 04:46 AM Chest X-Ray 08/11/24 03:09 EXAM: XR chest 1V portable CLINICAL HISTORY: stroke alert TECHNIQUE: An X-ray image of the chest is obtained in AP projection. COMPARISON: x-ray chest dated 02/02/2019 FINDINGS: Pulmonary Parenchyma: Bilateral prominent bronchovascular markings noted. Lungs are clear bilaterally. No evidence of consolidation, collapse, or focal opacities. No pulmonary nodules are identified. No evidence of pleural effusion or pleural thickening. Heart and Mediastinum: Heart size and shape are normal. No mediastinal widening or masses. No hilar or mediastinal lymphadenopathy. Bony Thorax: Bony thorax appears intact without fractures or deformities. Soft Tissues: Soft tissues overlying the chest wall are unremarkable. IMPRESSION: 1. Bilateral prominent bronchovascular markings noted. No interval changes compared to prior study. 2. No acute cardiopulmonary abnormalities are identifie (allelic regulant) Electronically signed by Estela Singh 08-11-2024 05:[address] 08/11/24 03:09 EXAM: CT head/brain wo con CLINICAL HISTORY: Neuro deficit, acute, stroke suspected TECHNIQUE: An axial non-contrast CT scan of the brain was performed from the skull base to the high parietal region. One of the following dose reduction techniques were utilized for this exam: Automated exposure control, adjustment of the mA and/or kV according to patient size, use of iterative reconstruction. COMPARISON: 03/30/[address] FINDINGS: Brain Parenchyma: Advanced periventricular ischemic changes.stable Old lacunar infarct seen at right putamen, and right periventricular white matter ( stable). Hypodeinsity seen at right frontal subcortical region, mostly due to old insult.( stable). No intracranial hemorrhage. Ventricular System: Ventricles are capacious. Subarachnoid Spaces: Capacious sulci and cisterns. No evidence of subarachnoid hemorrhage or extra-axial fluid collections. Cerebellum and Brainstem: Normal size and attenuation. Orbits: Normal appearance of the globes, optic nerves, and extraocular muscles. No evidence of orbital masses or abnormal signal. Sinuses: Clear paranasal sinuses. No evidence of sinusitis or mucosal thickening. Mastoid Air Cells: Clear mastoid air cells. No evidence of mastoiditis. Skull: Normal skull morphology. IMPRESSION: 1. Capacious CSF spaces and ventricles in keeping with patient age. 2. Advanced periventricular ischemic changes.stable 3. Old lacunar infarct seen at right putamen, and right periventricular white matter ( stable). 4. Hypodeinsity seen at right frontal subcortical region, mostly due to old insult.( stable). 5. Early changes of a stroke may not be detected on a CT scan. If strong clinical suspicion of stroke then suggest MRI with diffusion-weighted imaging. Electronically signed by Estela Singh 08-11-2024 04:06 AM ECG Additional Comments: ECG. Normal sinus rhythm rate of 76. No acute ST changes seen. QTc 470. Code Status & VTE Plan VTE Prophylaxis Plan VTE Prophylaxis will be ordered: Yes
[2024-08-11] MEDS ORDERED: PHARMACIST DISCHARGE MED REC CONSULT PRN (09:00)
[2024-08-11] MEDS ORDERED: NITROGLYCERIN SL 0.4 MG/TAB TAB SL PRN (09:00)
[2024-08-11] MEDS ORDERED: ONDANSETRON INJ 2 MG/ML 2 ML VIAL IV PRN (09:00)
[2024-08-11 09:45] LABS: Basophils # (auto) 0.04 K/uL (0.00-0.20); Basophils % (auto) 0.6 %; Eosinophils # (auto) 0.02 K/uL (0.00-0.50); Eosinophils % (auto) 0.3 %; Hematocrit (blood only) 31.1 % (37.0-47.0); Hemoglobin 10.6 g/dl (12.0-16.0); Immature Granulocytes # (auto) 0.02 K/uL (0.01-0.20); Immature Granulocytes % (auto) 0.3 %; Lymphocytes # (auto) 1.07 K/uL (1.20-3.40); Lymphocytes % (auto) 15.9 %; Mean Corpuscular Hemoglobin 31.7 pg (25.0-34.0); Mean Corpuscular Hgb Conc 34.1 g/dL (32.0-36.0); Mean Corpuscular Volume 93.1 fL (80.0-100.0); Mean Platelet Volume 11.2 fL (9.4-12.4); Monocytes # (auto) 0.58 K/uL (0.11-0.59); Monocytes % (auto) 8.6 %; Neutrophils # (auto) 5.02 K/uL (1.40-6.50); Neutrophils % (auto) 74.3 %; Platelet Count 195 K/uL (130-400); RDW Coefficient of Variation 14.3 % (11.5-14.5); RDW Standard Deviation 48.2 fL (36.4-46.3); Red Blood Count 3.34 M/uL (4.20-5.40); White Blood Count 6.75 K/ul (4.8-10.8)
[2024-08-11 10:02] LABS: BUN Creatinine Ratio 21.9 (10-20); Calcium 9.6 mg/dl (8.6-10.3); Creatinine Clr Calc Pharmacy 38.5 ml/min; Magnesium 1.6 mg/dl (1.7-2.4); Potassium 4.3 mmol/L (3.5-5.1)
[2024-08-11 10:41] LABS: Estimated Average Glucose 154 mg/dl
[2024-08-11] MEDS: ATORVASTATIN 40 MG TAB PO SCH (10:46)
[2024-08-11] MEDS: CLOPIDOGREL BISULFATE 75 MG TAB PO SCH (10:46)
[2024-08-11] MEDS: AMOXICILLIN/CLAVULANATE 875 MG TAB PO ONE (10:46)
[2024-08-11] MEDS: SODIUM CHLORIDE 0.9% 1,000 ML IV SCH (10:47)
[2024-08-11] MEDS: DORZOLAMIDE/TIMOLOL 22.3/6.8MG/ML 10 ML BTL OPB SCH (11:24)
--- NOTE | 2024-08-11 11:49 | Neurology Consultation ---
Date of Consultation August 11, 2024 Assessment & Plan (1) Stroke-like episode: Recommend continued stroke work up to include the following: MRI brain without contrast Echocardiogram as part of complete stroke workup Continue frequent neurological assessments Obtain stat CT brain without contrast for any acute neurological decline Continue to monitor/control blood pressure & blood glucose Continue to monitor telemetry closely Recommend ZioPatch at DC if no evidence of arrhythmia during inpatient monitor ing Continue to monitor renal and hepatic function, keep euvolemic Continue to monitor electrolytes and replace as needed Metabolic workup should include hgbA1c, fasting lipids Recommend DAPT for at least 3 weeks Recommend high dose statin therapy indefinitely if tolerated Ok from neurology perspective for VTE prophylaxis PT/OT/SLT to eval and treat Recommend eval for APOLINAR and consider outpatient polysomnography (2) Intracranial atherosclerosis: Continue DAPT and statin therapy Continue stroke/TIA workup as above Telehealth Consultation Telehealth Information Telehealth Information: I performed this visit using a real-time telehealth connection between my location and the patients location ([facility]). After connecting through interactive tele-video, patient was identified by name and date of and/or wristband check.Patient (or authorized healthcare metals sales representative) was informed that this was a telemedicine visit and it was being conducted confidentially over secure lines. My office door was closed and no one else was present in the room with me.Patient (or authorized healthcare metals sales representative) provided consent to proceed with the visit, expressed an understanding of privacy and security of the telemedicine visit, and gave permi ssion to have a hospital metals sales representative in the room in order to assist with the visit and to conduct portions of the visit, as needed. I informed the patient (or authorized healthcare metals sales representative) that I reviewed their record and presented the opportunity for them to ask any questions regarding the visit today. The patient agreed to participate. History of Present Illness Reason for Consultation: Stroke like symptoms Requesting Physician: Dr. Kirkland Attending Physician: Yoni Kirkland MD History of Present Illness 89yo right handed female presented after walking into a wall at home. She bumped her head on wall causing laceration. She has a hx of stroke, DM, CKD, HTN, hyperlipidemia as well as documented basilar artery stenosis. She was doing well while in the ER had her laceration repaired then reportedly had right sided weakness and dysarthria. She has undergone emergent stroke imaging including CT brain without contrast, personally reviewed, revealing no overt evidence of hemorrhage. CT angiographic studies of head and neck, also personally reviewed, reveal no overt evidence of large vessel occlusion or significant/flow limiting stenosis. I have performed televideo consultation. She is alert & oriented; able to answer all questions appropriately, name objects on televideo monitor, repeat phrases and perform complex/embedded commands without deficit. Neurological exam is non lateralizing/nonfocal in terms of motor strength and coordination. There is no overt facial asymmetry or dysarthria and she reports feeling back to normal. Allergies Allergy/AdvReac Type Severity Reaction Status Date / Time No Known Allergies Allergy Unverified 04/05/20 09:47 Home Medications Medication Instructions Recorded Confirmed Type atorvastatin 40 mg tablet 40 mg PO DAILY 08/11/24 08/11/24 History clopidogrel 75 mg tablet 75 mg PO DAILY 08/11/24 08/11/24 History dorzolamide 22.3 mg-timolol 6.8 1 drp OPB BID 08/11/24 08/11/24 History mg/mL eye drops losartan 25 mg tablet 25 mg PO DAILY 08/11/24 08/11/24 History metformin 500 mg tablet,extended 500 mg PO BID 08/11/24 08/11/24 History release 24 hr Patient History Medical History HLD (hyperlipidemia) CKD (chronic kidney disease) stage 3, GFR 30-59 ml/min Vitamin D deficiency, unspecified Glaucoma CVA (cerebral vascular accident) Hypertension Diabetes Surgical History History of shoulder surgery History of total hip arthroplasty History of tubal ligation History of colonoscopy Family History Father Myocardial infarction Mother of unknown cause Other Family history non-contributory Social History Smoking Status: Never smoker packs per day: 1; Second Hand Exposure: No; Do You Dip or Chew Tobacco: No; Hx Alcohol Use: Yes Alcohol type: wine and hard liquor Hx Substance Use: No Preferred Language: Hungarian Communication Ability: Effective Communication Ability Comment: double vision [employer] Required: No Beliefs That Will Affect Care: None marital status: Current Living Situation: Spouse current occupational status: retired 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 Oriented to person, place, and time. Fluency naming repetition and comprehension appear grossly intact. Affect remains appropriate. CN testing: I: Deferred II:Reports no changes in visual acuity III/IV/: No evidence of gaze preference, hippus, nystagmus or roving eye movements V: Facial sensation reportedly grossly intact VII: Facial movements appear without evidence of asymmetry VIII: Hearing appears grossly intact to loud voice bilaterally IX/X: Palate is unable to be accurately visualized via telemedicine XI: Shoulder shrug appears symmetric/ grossly intact bilaterally XII: Tongue protrudes midline without evidence of biting Motor exam: Strength appears grossly intact/symmetric in all extremities Sensory: Sensation is reportedly grossly intact throughout Coordination: No apparent evidence of dysmetria or dysdiadochokinesia Reflexes: Deferred Gait: Deferred Results & Data Vital Signs (Past 12 Hours) Vital Signs Pulse Pulse Resp BP Pulse Ox O2 Del Method 08/11/24 07:36 78 13 96 Room Air 08/11/24 07:00 72 19 91 Room Air 08/11/24 06:36 77 18 112/67 98 Room Air 08/11/24 06:23 73 08/11/24 05:00 71 18 95/56 L 98 Room Air 08/11/24 03:46 69 16 121/94 95 Room Air 08/11/24 01:00 80 21 124/81 97 Room Air Laboratory Results Abnormal lab results 08/10/24 08/11/24 08/11/24 Range/Units 23:08 03:09 09:23 WBC 4.76 L (4.8-10.8) K/ul RBC 3.95 L 3.34 L (4.20-5.40) M/uL Hgb 10.6 L (12.0-16.0) g/dl Hct 31.1 L (37.0-47.0) % RDW Std Deviation 48.9 H 48.2 H (36.4-46.3) fL Lymph # (Auto) 1.07 L (1.20-3.40) K/uL BUN/Creatinine Ratio 21.9 H (10-20) Glucose 153 H 163 H (70-99(Fasting)) mg/dl POC Glucose 197 H (70-99) mg/dl Hemoglobin A1c 7.0 H (4.5-5.6) % Magnesium 1.6 L (1.7-2.4) mg/dl Diagnostic Findings Cervical Spine CT 08/10/24 23:09 Exam(s): CT C SPINE EXAM: CT Cervical Spine Without Intravenous Contrast CLINICAL HISTORY: Reason for exam: Trauma. TECHNIQUE: Axial computed tomography images of the cervical spine without intravenous contrast. CTDI is 23.67 mGy and DLP is 1207.06 mGy-cm. Automated exposure control was utilized for the study. A dose lowering technique was utilized adhering to the principles of ALARA. COMPARISON: Prior CT scan of the cervical spine from March 30, 2024. FINDINGS: Vertebrae: Unremarkable. No acute fracture. Discs/spinal canal/neural foramina: No acute findings. There is a critical spinal canal stenosis at C4-5, C5-6 and C6-7. Soft tissues: Unremarkable. IMPRESSION: No evidence of acute cervical spine pathology. Critical spinal canal stenosis at C4-5 through C6-7. Recommend MRI of the cervical spine to evaluate for myelopathy. Electronically signed by: France Rivera MD 08/11/24 01:[address] 08/10/24 23:09 Exam(s): CT HEAD Without Contrast EXAM: CT Head Without Intravenous Contrast CLINICAL HISTORY: Reason for exam: Trauma. TECHNIQUE: Axial computed tomography images of the head/brain without intravenous contrast. CTDI is 38.9 mGy and DLP is 1207.06 mGy-cm. Automated exposure control was utilized for the study. A dose lowering technique was utilized adhering to the principles of ALARA. COMPARISON: Prior head CT from March 30, 2024. FINDINGS: Brain: Unremarkable. No hemorrhage. Mild nonspecific white matter changes.. No edema. Ventricles: Unremarkable. No ventriculomegaly. Bones/joints: Unremarkable. No acute fracture. Soft tissues: Unremarkable. Sinuses: Unremarkable as visualized. No acute sinusitis. Mastoid air cells: Unremarkable as visualized. No mastoid effusion. IMPRESSION: No evidence of acute intracranial pathology. Electronically signed by: France Rivera MD 08/11/24 01:03 AM Head CTA 08/11/24 03:08 EXAM: CT angio head w con CLINICAL HISTORY: Stroke alert TECHNIQUE: Axial CT angiography of the head was done with 118 ML OPTIRAY 320 contrast and sagittal and coronal reformats with MIP reconstructions. One of these 3D techniques was utilized: Maximum Intensity Pixel (MIP), 3D Reconstructed Images, Volume Rendered Images, Surface Shaded Rendering. One of the following dose reduction techniques were utilized for this exam: Automated exposure control, adjustment of the mA and/or kV according to patient size, and use of iterative reconstruction. COMPARISON: None. FINDINGS: Intracranial Arteries: The intracranial portions of the internal carotid arteries, anterior cerebral arteries, right middle cerebral arteries, and posterior cerebral arteries, are opacified. The M1 segment of left MCA showed mild narrowing, however patent. No evidence of an aneurysm. atherosclerotic calcified plaques of cavernous and clinoid parts of both internal carotid arteries noted. 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 Atherosclerotic changes and tight luminal narrowing of the middle/distal part of the basilar artery were noted . Assawoman of Small: The Ass[place]oman of Small is complete. No vascular malformations or aneurysms. Venous Structures: Normal opacification of the major dural venous sinuses. No evidence of venous sinus thrombosis. Brain Parenchyma: No evidence of acute infarct, hemorrhage, or mass effect. Ventricular System: Capacious ventricular system and CSF spaces. IMPRESSION: 1. Diffuse atherosclerotic changes. 2. The M1 segment of left MCA showed mild narrowing, however patent. 3. Atherosclerotic calcified plaques of cavernous and clinoid parts of both internal carotid arteries were noted. 4. 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 5. Atherosclerotic changes and tight luminal narrowing of the middle/distal part of the basilar artery. Electronically signed by Estela Singh 08-11-2024 04:28 AM Neck CTA 08/11/24 03:08 EXAM: CT angio neck with con CLINICAL HISTORY: stroke alert. TECHNIQUE: CT angiography study of the neck vessels with IV contrast was performed and multiple axial sections were obtained with coronal and sagittal reconstructions. 118 ML OPTIRAY 320 was administered, CTDI:72.24 mGy, DLP: 1108.94 mGy*cm. One of the following dose reduction techniques were utilized for this exam: Automated exposure control, adjustment of the mA and/or kV according to patient size, and use of iterative reconstruction. One of these 3D techniques was utilized: Maximum Intensity Pixel (MIP), 3D Reconstructed Images, Volume Rendered Images, Surface Shaded Rendering. COMPARISON: 02/02/2019 CT angio neck. FINDINGS: Carotid Arteries: Common carotid arteries, internal carotid arteries, and external carotid arteries are well-opacified bilaterally. No evidence of significant stenosis, occlusion, or aneurysm. Both carotid bulbs and both proximal internal carotid arteries showed calcified atherosclerotic changes causing mild luminal attenuation. Also cavernous and clenoid segments of both internal carotid arteries showed calcified atherosclerotic changes. Vertebral Arteries: The right vertebral artery showed diffuse attenuation and occlusion of the distal part. Dominant left vertebral artery with mild atherosclerotic changes. Jugular Veins: Normal opacification of the internal and external jugular veins bilaterally. No evidence of thrombosis or compression. Subclavian Arteries: Subclavian arteries are bilaterally well-opacified. No evidence of significant stenosis, occlusion, or aneurysm. Thyroid Gland: Normal size and morphology of the thyroid gland. No masses or nodules. Soft Tissues: Normal appearance of the surrounding soft tissues of the neck. No abnormal masses or lymphadenopathy. Cervical Spine: Degenerative changes. IMPRESSION: 1. Both carotid bulbs and both proximal internal carotid arteries showed calcified atherosclerotic changes.( stable) 2. The right vertebral artery showed diffuse attenuation/hypoplasia. Stable 3. Dominant left vertebral artery with mild atherosclerotic changes.Stable Electronically signed by Estela Singh 08-11-2024 04:46 AM Chest X-Ray 08/11/24 03:09 EXAM: XR chest 1V portable CLINICAL HISTORY: stroke alert TECHNIQUE: An X-ray image of the chest is obtained in AP projection. COMPARISON: x-ray chest dated 02/02/2019 FINDINGS: Pulmonary Parenchyma: Bilateral prominent bronchovascular markings noted. Lungs are clear bilaterally. No evidence of consolidation, collapse, or focal opacities. No pulmonary nodules are identified. No evidence of pleural effusion or pleural thickening. Heart and Mediastinum: Heart size and shape are normal. No mediastinal widening or masses. No hilar or mediastinal lymphadenopathy. Bony Thorax: Bony thorax appears intact without fractures or deformities. Soft Tissues: Soft tissues overlying the chest wall are unremarkable. IMPRESSION: 1. Bilateral prominent bronchovascular markings noted. No interval changes compared to prior study. 2. No acute cardiopulmonary abnormalities are identifie (allelic regulant) Electronically signed by Estela Singh 08-11-2024 05:[address] 08/11/24 03:09 EXAM: CT head/brain wo con CLINICAL HISTORY: Neuro deficit, acute, stroke suspected TECHNIQUE: An axial non-contrast CT scan of the brain was performed from the skull base to the high parietal region. One of the following dose reduction techniques were utilized for this exam: Automated exposure control, adjustment of the mA and/or kV according to patient size, use of iterative reconstruction. COMPARISON: 03/30/[address] FINDINGS: Brain Parenchyma: Advanced periventricular ischemic changes.stable Old lacunar infarct seen at right putamen, and right periventricular white matter ( stable). Hypodeinsity seen at right frontal subcortical region, mostly due to old insult.( stable). No intracranial hemorrhage. Ventricular System: Ventricles are capacious. Subarachnoid Spaces: Capacious sulci and cisterns. No evidence of subarachnoid hemorrhage or extra-axial fluid collections. Cerebellum and Brainstem: Normal size and attenuation. Orbits: Normal appearance of the globes, optic nerves, and extraocular muscles. No evidence of orbital masses or abnormal signal. Sinuses: Clear paranasal sinuses. No evidence of sinusitis or mucosal thickening. Mastoid Air Cells: Clear mastoid air cells. No evidence of mastoiditis. Skull: Normal skull morphology. IMPRESSION: 1. Capacious CSF spaces and ventricles in keeping with patient age. 2. Advanced periventricular ischemic changes.stable 3. Old lacunar infarct seen at right putamen, and right periventricular white matter ( stable). 4. Hypodeinsity seen at right frontal subcortical region, mostly due to old insult.( stable). 5. Early changes of a stroke may not be detected on a CT scan. If strong clinical suspicion of stroke then suggest MRI with diffusion-weighted imaging. Electronically signed by Estela Singh 08-11-2024 04:06 AM Medications Administered Home Medications Medication Instructions Recorded Confirmed Last Taken atorvastatin 40 mg tablet 40 mg PO DAILY 08/11/24 08/11/24 Unknown clopidogrel 75 mg tablet 75 mg PO DAILY 08/11/24 08/11/24 Unknown dorzolamide 22.3 mg-timolol 6.8 1 drp OPB BID 08/11/24 08/11/24 Unknown mg/mL eye drops losartan 25 mg tablet 25 mg PO DAILY 08/11/24 08/11/24 Unknown metformin 500 mg tablet,extended 500 mg PO BID 08/11/24 08/11/24 Unknown release 24 hr Active Medications Generic Name Dose Route Start Last Admin Trade Name Freq PRN Reason Stop Dose Admin Atorvastatin Calcium 40 mg 08/11/24 09:00 08/11/24 10:46 Atorvastatin 40 Mg Tab PO 09/10/24 08:59 40 mg DAILY SIMONA Administration Clopidogrel Bisulfate 75 mg 08/11/24 09:00 08/11/24 10:46 Clopidogrel Bisulfate 75 Mg Tab PO 09/10/24 08:59 75 mg DAILY SIMONA Administration Dorzolamide/Timolol 1 drops 08/11/24 09:00 08/11/24 11:24 Dorzolamide/Timolol 22.3/6.8mg/Ml 10 Ml Btl OPB 09/10/24 08:59 1 drops BID SIMONA Administration Sodium Chloride 1,000 mls @ 100 mls/hr 08/11/24 09:00 08/11/24 10:47 Nss IV 08/11/24 18:59 100 mls/hr .Q10H SIMONA Administration
[2024-08-11] MEDS: GADOBUTROL 65ML VIAL IV ONE (12:34)
--- NOTE | 2024-08-11 13:06 | Magnetic Resonance Report ---
MR brain wo/w con HISTORY: 89 years-old Female stroke like symptoms. has staple on wound on skull acute stroke like sy mptoms COMPARISON: CT head 08/11/2024 TECHNIQUE: Multiplanar multisequence MRI of the brain was obtained with and without IV contrast FINDINGS: No restricted diffusion to suggest acute or subacute infarct. Midline structures appear unremarkable. Degenerative changes of the imaged cervical spine. No acute intracranial hemorrhage, midline shift, abnormal extra-axial collection, hydrocephalus or intra-axial mass. Cerebral venous sinuses and major arterial flow voids appear patent. Skull, orbits and soft tissues are unremarkable prior bilateral l ens repair. Involutional changes with mild to moderate T2/FLAIR hyperintense foci throughout the whit e matter. No abnormal intra-axial enhancement. Enhancing 7 mm extra-axial focus adjacent to the left frontal lobe on image 18 series 9 may represent a meningioma. IMPRESSION: 1. No acute intracranial abnormality. No acute or subacute infarct. 2. Involutional changes with chronic microvascular ischemic disease. ACT 112: Negative or not required by law. The above report was generated using voice recognition software. It may contain grammatical, syntax o r spelling errors. Electronically signed by: Shayne Gillis M.D. 08/11/2024 1:04 PM
[2024-08-11] MEDS: ACETAMINOPHEN 325 MG TAB PO PRN (14:03)
--- NOTE | 2024-08-11 14:55 | Pharmacy Report ---
- Date of Service August 11, 2024 - Pharmacy CVA/TIA Medication Review Medications to Prevent Stroke handout has been added to the patients discharge packet. Antiplatelet(s) * Aspirin 81 mg + Plavix 75 mg PO daily Cholesterol * High intensity statin: atorvastatin 40 mg daily DVT Prophylaxis * SCD thigh Therapeutic Anticoagulation * No history of Afib/Aflutter noted Type 2 Diabetes * Patient has T2DM, but per Dr. Kirkland, a diabetes medication with proven CVD benefit will be deferred to their outpatient provider due to familiarity with risks/benefits of such therapies. "Medications to prevent stroke" handout has already been added to the patient's discharge packet, which instructs the patient to follow up with their outpatient provider to evaluate which diabetes medication with proven CVD benefit is best for them
[2024-08-11] MEDS: AMOXICILLIN/CLAVULANATE 875 MG TAB PO SCH (17:10)
--- NOTE | 2024-08-11 22:59 | Electrocardiogram Report ---
Test Reason : Blood Pressure : */* mmHG Vent. Rate : 76 BPM Atrial Rate : 76 BPM P-R Int : 138 ms QRS Dur : 78 ms QT Int : 418 ms P-R-T Axes : 15 -12 42 degrees QTcB Int : 470 ms Normal sinus rhythm Normal ECG When compared with ECG of 30-Mar-2024 19:26, QT has lengthened Confirmed by Lobito Chicas ([id number]) on 08/11/2024 10:58:57 PM Referred By: REFERRED SELF Confirmed By: Lobito Chicas
[2024-08-12 06:35] LABS: Basophils # (auto) 0.02 K/uL (0.00-0.20); Basophils % (auto) 0.5 %; Eosinophils # (auto) 0.08 K/uL (0.00-0.50); Immature Granulocytes # (auto) 0.01 K/uL (0.01-0.20); Immature Granulocytes % (auto) 0.2 %; Lymphocytes # (auto) 0.87 K/uL (1.20-3.40); Lymphocytes % (auto) 21.6 %; Mean Corpuscular Hemoglobin 31.5 pg (25.0-34.0); Mean Corpuscular Hgb Conc 33.3 g/dL (32.0-36.0); Mean Corpuscular Volume 94.4 fL (80.0-100.0); Mean Platelet Volume 11.1 fL (9.4-12.4); Monocytes # (auto) 0.53 K/uL (0.11-0.59); Monocytes % (auto) 13.2 %; Neutrophils # (auto) 2.51 K/uL (1.40-6.50); Neutrophils % (auto) 62.5 %; Platelet Count 152 K/uL (130-400); RDW Coefficient of Variation 14.3 % (11.5-14.5); RDW Standard Deviation 49.1 fL (36.4-46.3); Red Blood Count 2.86 M/uL (4.20-5.40); White Blood Count 4.02 K/ul (4.8-10.8)
[2024-08-12 06:41] LABS: BUN Creatinine Ratio 16.2 (10-20); Calcium 8.3 mg/dl (8.6-10.3); Chol HDL Ratio 2.2 (0-5); Creatinine Clr Calc Pharmacy 36.1 ml/min; Magnesium 1.6 mg/dl (1.7-2.4); Phosphorus 3.8 mg/dl (2.5-4.9); Potassium 3.8 mmol/L (3.5-5.1)
[2024-08-12] MEDS: ASPIRIN 81 MG ECTAB PO SCH (07:49)
[2024-08-12 08:54] VITALS: RESP 18
--- NOTE | 2024-08-12 12:44 | CT Scan Report ---
CT OF THE HEAD WITHOUT CONTRAST CLINICAL HISTORY: follow up, head trauma, Hgb down COMPARISON STUDY: Head CT and MRI of the brain August 11, 2024. CT DOSE: 625.8 mGy.cm TECHNIQUE: Helical axial images of the head were obtained without IV contrast. Automated exposure con trol was utilized for the study. A dose lowering technique was utilized adhering to the principles o f ALARA. FINDINGS: No acute intracranial hemorrhage, midline shift or mass effect is present. The ventricular system is unremarkable. White matter hypodensities are unchanged and favor small vessel disease. The basal cisterns are patent. No extra-axial collections are present. There are no findings to suggest a cute dural sinus thrombosis or acute territorial infarct. A right frontal scalp contusion and lacerat ion with skin evangelina are noted. There is no calvarial fracture. IMPRESSION: No acute intracranial findings. ACT 112: Negative or not required by law. Electronically signed by: Dominik Robin M.D. 08/12/2024 12:43 PM
[2024-08-12] MEDS: MAGNESIUM SULFATE / D5W 1 GM/100 ML BAG IV ONE (12:55)
[2024-08-12 13:17] LABS: Hematocrit (blood only) 29.6 % (37.0-47.0)
[2024-08-12] MEDS ORDERED: STROKE PATIENT DISCHARGE STA (15:08)
--- NOTE | 2024-08-12 15:10 | Discharge Summary ---
Date of Service August 12, 2024 Admission HPI Per Admitting Provider 89-year-old female with past medical history significant for type 2 diabetes, CKD stage III, hyperlipidemia, hypertension, history of basilar artery stenosis/occlusion, history of occlusion of left posterior cerebral artery, vitamin D deficiency, osteoarthritis, glaucoma, history of diplopia, ataxia and posterior circulation stroke presents with a fall and in the ER she had a strokelike episode. Patient states she was walking in the hallway and when she turned she hit her head and fell to the ground and was able to get up with her 's help. She has a bruise on the skull and she was bleeding. She was brought to the ER. In the ER evangelina were placed on the laceration. Imaging studies were okay. ER planned to discharge her. But in the ER when she was in the bathroom she suddenly was having slurred speech and also some weakness in the right side. Seems it lasted for about 10 to 20 minutes. Patient does not remember the episode. Stroke alert was called. CT head and CT head and neck no acute findings. Patient currently resting comfortably. Alert and oriented. Able to give her history. Has some headache. No dizziness. Vision is okay. Says always has some runny nose. No cough. No difficulty swallowing. No chest pain. No shortness of breath. Has some nausea. No abdominal pain. Normal bowel and bladder movements. Hemodynamics are okay. Past medical history. As mentioned above. Past surgical history. Bilateral carotid artery catheter placement. Colonoscopy. Ligation of oviducts. Left hip replacement. Treatment of ectopic . Vertebral artery catheter placement. Social history. . Quit smoking 1978. Alcohol rarely. No drug use. Family history. Father had a possible NV. Admission Exam Per Admitting Provider General- Not in distress. Head- laceration and evangelina seen on the front part of skull Eyes- PERRL, EOMI. ENT- oropharynx clear Neck- supple, no JVD. Lungs- clear to auscultation no wheezing or crackles Heart- regular rhythm; no murmur, no gallop. Abdomen- normal bowel sounds, soft, nontender, no distension. Extremities- no pretibial edema, no erythema seen. Neuro- alert, oriented PERRL, EOMI; no facial palsy; no dysarthria; motor 5/5 bilaterally; no pronator drift, c ordination of movements normal, sensations intact and position sense intact. Principal Diagnosis Fall, scalp laceration Stroke-like episode Discharge Exam General- WD/WN elderly F in NAD Head- laceration and evangelina seen on the front part of skull Eyes- PERRL, EOMI. Neck- supple, no JVD. Lungs- clear to auscultation no wheezing or crackles Heart- regular rhythm; no murmur Abdomen- normal bowel sounds, soft, nontender, no distension. Extremities- no pretibial edema, no erythema seen. Neuro- alert, oriented PERRL, EOMI; no facial palsy; no dysarthria; motor 5/5 bilaterally Discharge Data Allergies Allergy/AdvReac Type Severity Reaction Status Date / Time No Known Allergies Allergy Unverified 04/05/20 09:47 Consultations 08/11/24 05:20 ED Decision to Admit Stat 08/11/24 09:00 Consult Neurology Routine Ordered Studies 08/10/24 23:09 CT cervical spine wo con Stat FINDINGS: Vertebrae: Unremarkable. No acute fracture. Discs/spinal canal/neural foramina: No acute findings. There is a critical spinal canal stenosis at C4-5, C5-6 and C6-7. Soft tissues: Unremarkable. IMPRESSION: No evidence of acute cervical spine pathology. Critical spinal canal stenosis at C4-5 through C6-7. Recommend MRI of the cervical spine to evaluate for myelopathy. CT head/brain wo con Stat FINDINGS: Brain: Unremarkable. No hemorrhage. Mild nonspecific white matter changes.. No edema. Ventricles: Unremarkable. No ventriculomegaly. Bones/joints: Unremarkable. No acute fracture. Soft tissues: Unremarkable. Sinuses: Unremarkable as visualized. No acute sinusitis. Mastoid air cells: Unremarkable as visualized. No mastoid effusion. IMPRESSION: No evidence of acute intracranial pathology. 08/11/24 03:08 CTA head w con [CT angio head w con] Stat IMPRESSION: 1. Diffuse atherosclerotic changes. 2. The M1 segment of left MCA showed mild narrowing, however patent. 3. Atherosclerotic calcified plaques of cavernous and clinoid parts of both internal carotid arteries were noted. 4. 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 5. Atherosclerotic changes and tight luminal narrowing of the middle/distal part of the basilar artery. CTA neck with con [CT angio neck with con] Stat IMPRESSION: 1. Both carotid bulbs and both proximal internal carotid arteries showed calcified atherosclerotic changes.( stable) 2. The right vertebral artery showed diffuse attenuation/hypoplasia. Stable 3. Dominant left vertebral artery with mild atherosclerotic changes.Stable 08/11/24 03:09 CT head/brain wo con Stat FINDINGS: Brain Parenchyma: Advanced periventricular ischemic changes.stable Old lacunar infarct seen at right putamen, and right periventricular white matter ( stable). Hypodeinsity seen at right frontal subcortical region, mostly due to old insult.( stable). No intracranial hemorrhage. Ventricular System: Ventricles are capacious. Subarachnoid Spaces: Capacious sulci and cisterns. No evidence of subarachnoid hemorrhage or extra-axial fluid collections. Cerebellum and Brainstem: Normal size and attenuation. Orbits: Normal appearance of the globes, optic nerves, and extraocular muscles. No evidence of orbital masses or abnormal signal. Sinuses: Clear paranasal sinuses. No evidence of sinusitis or mucosal thickening. Mastoid Air Cells: Clear mastoid air cells. No evidence of mastoiditis. Skull: Normal skull morphology. IMPRESSION: 1. Capacious CSF spaces and ventricles in keeping with patient age. 2. Advanced periventricular ischemic changes.stable 3. Old lacunar infarct seen at right putamen, and right periventricular white matter ( stable). 4. Hypodeinsity seen at right frontal subcortical region, mostly due to old insult.( stable). 5. Early changes of a stroke may not be detected on a CT scan. If strong clinical suspicion of stroke then suggest MRI with diffusion-weighted imaging. 08/11/24 09:00 MR brain wo/w con Urgent FINDINGS: No restricted diffusion to suggest acute or subacute infarct. Midline structures appear unremarkable. Degenerative changes of the imaged cervical spine. No acute intracranial hemorrhage, midline shift, abnormal extra-axial collection, hydrocephalus or intra-axial mass. Cerebral venous sinuses and major arterial flow voids appear patent. Skull, orbits and soft tissues are unremarkable prior bilateral lens repair. Involutional changes with mild to moderate T2/FLAIR hyperintense foci throughout the white matter. No abnormal intra-axial enhancement. Enhancing 7 mm extra-axial focus adjacent to the left frontal lobe on image 18 series 9 may represent a meningioma. IMPRESSION: 1. No acute intracranial abnormality. No acute or subacute infarct. 2. Involutional changes with chronic microvascular ischemic disease. 08/12/24 11:56 CT head/brain wo con Urgent FINDINGS: No acute intracranial hemorrhage, midline shift or mass effect is present. The ventricular system is unremarkable. White matter hypodensities are unchanged and favor small vessel disease. The basal cisterns are patent. No extra-axial collections are present. There are no findings to suggest acute dural sinus thrombosis or acute territorial infarct. A right frontal scalp contusion and laceration with skin evangelina are noted. There is no calvarial fracture. IMPRESSION: No acute intracranial findings. Hospital Course (1) Stroke-like episode: 89 yo F with type 2 diabetes, CKD stage III, hyperlipidemia, hypertension, history of basilar artery stenosis/occlusion, history of occlusion of left posterior cerebral artery, vitamin D deficiency, osteoarthritis, glaucoma, history of diplopia, ataxia and posterior circulation stroke presents with a fall and in the ER she had a strokelike episode. Patient states she was walking in the hallway and when she turned she hit her head and fell to the ground and was able to get up with her 's help. She has a laceration on the skull and she was bleeding. She was brought to the ER. In the ER evangelina were placed on the laceration. Imaging studies were okay. ER planned to discharge her. But in the ER when she was in the bathroom she suddenly was having slurred speech and also some weakness in the right side. Seems it lasted for about 10 to 20 minutes. Patient does not remember the episode. Stroke alert was called. CT head and CT head and neck no acute findings. Patient currently resting comfortably. Alert and oriented. Able to give her history. Has some headache. No dizziness. Vision is okay. Says always has some runny nose. No cough. No difficulty swallowing. No chest pain. No shortness of breath. Has some nausea. No abdominal pain. Normal bowel and bladder movements. Hemodynamics are okay. Strokelike episode Brief episode of slurred speech and right-sided weakness Possible TIA CT head and CTA head and neck no acute findings Patient was admitted in January 2019 with CVA at that time CTA showed 90% stenosis of basilar artery and stenosis of the L M1 segment of MCA as well. MRI showed acute infarct in right cerebellum, right thalamus and right occipital lobe. She she had dysarthria and diplopia. Because of fluctuation of symptoms she was placed on heparin drip and transferred to [place]. At [place] heparin was stopped and she was placed on aspirin and Plavix. Patient currently on Plavix and statin held losartan for permissive hypertension IV fluids Neurochecks MRI brain - negative Echo - LV normal in size, mild concentric LVH, LV wall motion normal, LV EF 60- 65%, Grade I diast. dysfunction, aortic valve sclerosis mild, w/o significant .moderate annular calcification PT OT Neuro consult for further recommendation Stroke-like episode: Recommend ZioPatch at DC if no evidence of arrhythmia during inpatient monitoring Recommend DAPT for at least 3 weeks -> added ASA to plavix Recommend high dose statin therapy indefinitely if tolerated -> pt on lipitor, LDL 30 Laceration of scalp Status post evangelina Short course of Augmentin Needs follow-up Type 2 diabetes Held metformin - resume on DC Sliding scale HbA1c 7.0% monitor Hyperlipidemia Continue statin Follow lipid profile - LDL 30 CKD stage III Creatinine 1.1 Will follow labs fall pt/ot Total Time Total Time Spent Total Time Spent (In Minutes): 40 Discharge Plan Discharge Items Patient Disposition: Home - Self-Care Reason For Visit: FALL, STROKE LIKE SYMPTOMS Discharge Diagnosis: Fall, scalp laceration Stroke-like episode Condition on Discharge: Good Activity: Per Instructions section Non-emergency contact: Primary Care Provider Call non-emergency contact if: you have any medication questions and your symptoms worsen Follow-up/Referrals: Mainor Alarcon MD [Primary Care Provider] - Diet: Heart Healthy Addtl Attending Provider Instructions: Follow up with primary care physician within 1 week. Take aspirin and plavix for 3 weeks, then continue taking plavix. Continue taking Lipitor. Finish antibiotic course with augmentin. You will need heart rhythm monitoring - your primary care doctor/ health sciences department chair will arrange. Recommend physical therapy for gait/ balance. Pending Studies at Discharge: No Stand-Alone Forms: [facility], Smoking Cessation, Medications to Prevent Stroke Medications and DC Order Prescriptions: New aspirin 81 mg Tablet,Delayed Release (Dr/Ec) 81 mg PO DAILY Qty: 20 0RF amoxicillin-pot clavulanate 875-125 mg Tablet 1 tab PO BIDM 5 Days Qty: 10 0RF Continued atorvastatin 40 mg tablet 40 mg PO DAILY clopidogrel 75 mg tablet 75 mg PO DAILY losartan 25 mg tablet 25 mg PO DAILY dorzolamide-timolol 22.3-6.8 mg/mL drops 1 drp OPB BID metformin 500 mg tablet extended release 24 hr 500 mg PO BID Discharge Orders: Discharge Order (Routine); Ordered 08/12/24 Ordered By: Yoni Kirkland Admission Data Admit Date/Time: 08/11/24 06:55 Attending Provider: Yoni Kirkland Admit Provider: Javier Montejo Primary Care Provider: Mainor Alarcon Other Providers: Javier Montejo; Lindsey Barragan; Rj Perry; Lindsey Lebron; Shawn Munoz; Star Johnston; Reynold Ruiz; Jersey Fonseca; Pilar Navarrete; Elfego Rodriguez; Stevie Felipe; Odell Rodriguez; Vicente Potter; Meenu Lopez; Elvia Feliciano; Jersey Graham; Veena Gordillo
[2024-08-12 15:38] VITALS: BP 115/74; PULSE 73; TEMP 97.7; O2SAT 97
--- NOTE | 2024-08-14 10:16 | Pharmacy Report ---
Pharmacist Stroke Counseling - Date of Service August 14, 2024 - Scope: Pharmacy has been consulted to provide medication discharge counseling for this patient admitted with transient ischemic attack as per the Pharmacist Discharge Counseling for Stroke Patients Protocol. - Medications on Discharge: Home Medications Medication Instructions Recorded Confirmed atorvastatin 40 mg tablet 40 mg PO DAILY 08/11/24 08/11/24 clopidogrel 75 mg tablet 75 mg PO DAILY 08/11/24 08/11/24 dorzolamide 22.3 mg-timolol 6.8 1 drp OPB BID 08/11/24 08/11/24 mg/mL eye drops losartan 25 mg tablet 25 mg PO DAILY 08/11/24 08/11/24 metformin 500 mg tablet,extended 500 mg PO BID 08/11/24 08/11/24 release 24 hr New Rx's Medication Instructions Recorded amoxicillin 875 mg-potassium 1 tab PO BIDM 5 days #10 tabs 08/12/24 clavulanate 125 mg tablet aspirin 81 mg tablet,delayed 81 mg PO DAILY #20 tabs 08/12/24 release - Action: The above medications, specifically ones for stroke treatment/prophylaxis, have been reviewed in detail with the patient and/or patient primary care sales representative(s) prior to discharge. This includes indication, common adverse reactions, drug interactions, and medication administration. Medication counseling has been employed using the teach-back method to ensure understanding. - Outcome: The patient and/or patient primary care sales representative(s) have demonstrated understanding of the medications. Additional comments: - counseled patient on DAPT and to stop baby aspirin on September 01, 2024. Patient showed good understanding of this. - follow up appointment with PCP at noon today. counseled on possible addition of SGLT2i or GLP1-RA for proven CVD benefit. Patient will ask PCP. Thank you for allowing pharmacy to be involved in the care of this patient. Please call [phone] with any additional questions
== END 2024-08-12 16:30 | disposition home or self-care (01) | DRG 69 ==
LOC: ED 22:46 → 2S 08-11 06:55